=== PATIENT | female | born 1950 | race Caucasian/White ===

== ENCOUNTER 2019-02-09 09:42 | Inpatient (IN) | payer MEDICARE, BC ==
[2019-02-09] MEDS ORDERED: Morphine 4 MG/ML VIAL ONE (10:15)
[2019-02-09] MEDS ORDERED: Ondansetron PF 4 MG/2 ML Vial ONE (10:16)
--- NOTE | 2019-02-09 10:26 | RAD ---
Exam:4 views right knee HISTORY: Fall. Trauma. Pain COMPARISON: None FINDINGS: Diffuse bony mineralization. Incompletely evaluated intramedullary metallic stem from a pro sthesis. Comminuted distal femur diaphyseal fracture with probable displacement, deformity of the distal aspec t of the femur. Possible injury to the patella cannot be excluded. There is evidence of soft tissue swelling IMPRESSION: 1. Diffuse bony demineralization 2. Comminuted, displaced distal fibular fracture.
--- NOTE | 2019-02-09 10:28 | RAD ---
Exam:2 views right hip HISTORY: Fall. Pain. COMPARISON: 08/21/2015 FINDINGS: Right hip arthroplasty is noted. There is demineralization and erosion along the lesser and greater trochanter. There appears to be some fragmentation. The possibility of a fracture of the lesser and greater trochanter cannot be excluded.. IMPRESSION: 1. Redemonstration of right hip arthroplasty. 2. Interval bone demineralization lesser and greater trochanter. Possibility of trochanter fracture c annot be excluded.
[2019-02-09 10:51] LABS: #Eosinphils 0.2 thou/uL (0.0-0.7); #Lymphocytes 1.4 thou/uL (1.20-3.40); #Monocytes 0.6 thou/uL (0.11-0.59); #Neutrophils 4.6 thou/uL (1.40-6.50); %Basophils 0.1 % (0.0-1.0); %Eosinophils 2.4 % (0.0-10.0); %Lymphocytes 20.7 % (21.0-51.0); %Monocytes 8.9 % (0.0-10.0); %Neutrophils 67.9 % (42.0-75.0); Hemoglobin 10.4 g/dL (12.0-16.0); Mean Corpuscular HGB CONC 32.1 g/dL (32.0-36.0); Mean Corpuscular Hemoglobin 24.8 pg (27.0-31.0); Mean Corpuscular Volume 77.3 fL (78.0-98.0); Mean Platelet Volume 8.2 fL (7.4-10.4); Platelet Count 286 thou/uL (130-400); RBC Distribution Width 15.2 % (11.5-14.5); Red Blood Cell (RBC) Count 4.19 mill/uL (4.20-5.40); White Blood Cell (WBC) Count 6.8 thou/uL (4.8-10.8)
[2019-02-09 10:58] LABS: INR-International Normal Ratio 2.3; PTT 41.7 SEC (22.9-36.1); Prothrombin Time 25.6 SEC (12.0-14.7)
--- NOTE | 2019-02-09 10:58 | RAD ---
CHEST ONE VIEW: History: Injury following a fall at work. FINDINGS: Heart size is within normal limits. Increased linear and interstitial markings bilaterally. No conflu ent pneumonia, overt edema, or significant pleural effusion. IMPRESSION: Stable appearing chronic lung changes. No acute intrathoracic disease. POS: C
[2019-02-09 11:15] LABS: ALT (SGPT) 15 U/L (8-55); AST (SGOT) 14 U/L (5-34); Albumin 3.8 g/dL (3.4-4.8); Alkaline Phosphatase 88 U/L (40-150); Anion Gap 12 mmol/L (10-20); BUN (Urea Nitrogen) 14 mg/dL (9.8-20.1); Bilirubin, Total 0.3 mg/dL (0.2-1.2); Calc. Creatinine Clearance 0 mL/min (70-130); Calcium 9.2 mg/dL (7.8-10.44); Carbon Dioxide 25 mmol/L (23-31); Chloride 103 mmol/L (98-107); Estimated GFR-MDRD 66; Globulin 3.4 g/dL (2.4-3.5); Glucose 320 mg/dL (80-115); Potassium 4.4 mmol/L (3.5-5.1); Protein, Total 7.2 g/dL (6.0-8.3); Sodium 136 mmol/L (136-145)
[2019-02-09] MEDS ORDERED: Dextrose 5% in Water 1,000 ML IV PRN (11:29)
[2019-02-09] MEDS ORDERED: Ondansetron PF 4 MG/2 ML Vial IVP PRN (11:29)
[2019-02-09] MEDS ORDERED: Promethazine HCl 25 MG/ML VIAL IM PRN (11:29)
[2019-02-09] MEDS ORDERED: Dextrose 50% Abboject 50 ML SYRINGE SLOW IVP PRN (11:29)
[2019-02-09] MEDS ORDERED: hydrALAZINE 20 MG/ML VIAL SLOW IVP PRN (11:29)
[2019-02-09] MEDS ORDERED: Cyclobenzaprine 10 MG TAB PO PRN (11:32)
[2019-02-09] MEDS ORDERED: Acetaminophen 1,000 MG in Premix Bag 1 BAG IVPB SCH (11:45)
--- NOTE | 2019-02-09 12:27 | CT ---
CT right knee noncontrast: 02/09/2019 HISTORY: 68-year-old female with distal femoral fracture, acute FINDINGS: Acute, comminuted, moderately displaced fracture of distal femur including distal metadiaphysis, with approximately up to 30-50% bone width posterior displacement of mid and distal fragments relative to the diaphysis. Although there are fracture lucencies that extend to the lateral compartment articu lar surface, these are not displaced. There is suprapatellar joint space fluid. No dislocation. Moderate DJD of all 3 compartments. No fracture of proximal tibia or proximal fibula identified. IMPRESSION: 1. Acute, comminuted, displaced, closed, fracture of distal femoral metadiaphysis. 2. At the lateral compartment, there is intra-articular involvement without displacement. 3. Hemarthrosis.
[2019-02-09 13:02] LABS: Bilirubin Negative (Negative); Blood, Urine Negative (Negative); Clarity CLEAR (Clear); Glucose, Urine (Dipstick) 500 mg/dL (Negative); Leukocyte Negative (Negative); Nitrite Negative (Negative); Protein, Urine (Dipstick) Negative (Neg-Trace); Specific Gravity, Urine 1.016 (1.002-1.036); Urobilinogen 0.2 mg/dL (0.2-1.0)
[2019-02-09 13:44] LABS: Amphetamine Not Detected (NotDetected); Barbiturates Screen Not Detected (NotDetected); Benzodiazepine Screen Not Detected (NotDetected); Cocaine Metabolite Screen Not Detected (NotDetected); Medtox Control Line Valid? VALID (VALID); Medtox Reader # READER 4; Methadone Not Detected (NotDetected); Methamphetamine Not Detected (NotDetected); Opiate Screen Detected (NotDetected); Oxycodone Screen Not Detected (NotDetected); Phencyclidine (PCP) Not Detected (NotDetected); THC/Cannabinoid Screen Not Detected (NotDetected); Tricyclic Screen Not Detected (NotDetected)
[2019-02-09] MEDS: Ibuprofen 600 MG TAB PO SCH ×2 (14:31→21:15)
[2019-02-09] MEDS: Sodium Chloride 0.9% 1,000 ML IV SCH ×2 (14:31→20:15)
--- NOTE | 2019-02-09 14:49 | HP ---
REFERRING PHYSICIAN: Dr. Guerrero. TRAUMA SURGEON: Stanislaw Mane DO CONSULTING PHYSICIAN: Louis Mcnair MD HISTORY OF PRESENT ILLNESS: The patient is a 68-year-old female, who presented to the emergency department via EMS after a mechanical fall. The patient is on Coumadin for factor V Leiden deficiency. She reports maneuvering out of the way of somebody walking towards her. Subsequently, she got hung up in the table or cords of a printer station and she fell. She complained of right distal knee pain. On evaluation by the emergency department physician, she was found to have a right distal femur fracture. Trauma was consulted to admit the patient to the floor. Orthopedic Surgery was also consulted for operative planning. Upon my evaluation, the patient reported that she was still unclear if she wanted to go to the OR or try conservative management with hinged knee brace. The patient denied nausea, vomiting, diarrhea, or decreased sensation. She did report decreased range of motion to her right knee and reported pain was 6/10. PAST MEDICAL HISTORY: Factor V Leiden deficiency, lower extremity DVTs, TBI in [address] 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 PAST SURGICAL HISTORY: Left hip replacement, right hip replacement x8, amberly holes by Dr. Diallo in 2016 for TBI, IVC filter placement, and left toe removal. SOCIAL HISTORY: The patient lives independently and denies tobacco and drug abuse. She does report drinking alcohol about 2 times a month. MEDICATIONS: 1. Noncompliant with Humulin. 2. Coumadin 5 mg daily and 10 mg 2 times a week. 3. Keflex 500 mg daily. 4. Additional supplements. ALLERGIES: TRAMADOL. PHYSICAL EXAMINATION: VITAL SIGNS: Temperature 98.1, pulse 72, respirations 18, oxygen saturation 98% on room air, and blood pressure 151/68. PRIMARY SURVEY: Airway intact. Adequate breath sounds bilaterally. A 2+ pulses in the bilateral distals, radials, femorals, and DPs. GCS is 15. Gross motor and sensation intact. No lacerations or bruising or external bleeding noted. SECONDARY SURVEY: HEAD: Normocephalic and atraumatic. No gross palpable skull deformities or tenderness. EYES: Pupils 3 to 2, equal, round, and reactive bilaterally. ENT: No hemotympanum. No epistaxis. No septal hematoma. Midface stable to manipulation. No blood in the oropharynx. Dentition is intact. No anterior neck injury/crepitus/tenderness. C-SPINE: No step-offs or deformities or tenderness. C-collar not in place. CHEST: Nontender. No crepitus. No abrasions or ecchymosis noted. Equal chest movement. ABDOMEN: Soft, nontender, and nondistended. PELVIS: Stable to palpation. Nontender. No abrasions or ecchymosis noted. RECTAL: Deferred. GENITOURINARY: Deferred. EXTREMITIES: Rotation of the right lower extremity with swelling at the right knee as well as tenderness. No significant abrasions or ecchymosis noted. A 2+ pulses in the bilateral radials, femorals, and DPs. BACK/SPINE: No step-offs or deformities or tenderness to palpation of the thoracic or lumbar spine. No abrasions or ecchymosis noted. 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 Gross normal sensation x4 extremities. GCS is 15. LABORATORY FINDINGS: White count 6.8, hemoglobin 10.4, hematocrit 32.4, and platelets 286. Sodium 136, potassium 4.4, chloride 103, carbon dioxide 25, BUN 14, creatinine 0.86, glucose 320, total bilirubin 0.3, AST 14, and ALT 15. UA is negative. INR 2.3. DIAGNOSTIC FINDINGS: X-ray of the right hip demonstrates re-demonstration of right hip arthroplasty, interval bone demineralization of lesser and greater trochanter. Possibility of trochanter fracture cannot be excluded. Diffuse bony demineralization. Comminuted displaced fracture. Chest x-ray demonstrates stable appearance. Chronic lung changes. No acute intrathoracic disease. CT of the right lower extremity demonstrates acute comminuted displaced closed fracture of the distal femoral metadiaphysis at the lateral compartment. There is intraarticular involvement without displacement and hemarthrosis. ASSESSMENT: 1. Status post mechanical fall from standing, on Coumadin. 2. Right distal femur fracture. 3. Hyperglycemia, uncontrolled diabetes. 4. 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 PLAN: The patient will be admitted to the surgical floor. Dr. Mcnair of Orthopedic Surgery was consulted. The patient initially refused orthopedic intervention, however, did agree to have a CT scan of the right lower extremity and speak with Dr. Mcnair personally. If she is n.p.o. for now and if she does go to the OR tomorrow, she will be n.p.o. after midnight. We will repeat a INR in the morning and give the patient FFP if she does need to go to the OR. We will complete lower extremity duplex ultrasounds for DVT evaluation. We will start Pepcid for prophylaxis, but we will hold Lovenox and Coumadin at this time. PT/OT to see the patient after a plan of operative versus conservative management is made. The patient was seen and examined by Dr. Mane and myself this morning in the emergency department. Job ID: [id number]
--- NOTE | 2019-02-09 15:06 | ULT ---
BILATERAL LOWER EXTREMITY VENOUS DUPLEX ULTRASOUND INCLUDING COLOR AND SPECTRAL DOPPLER IMAGING: HISTORY: Right lower extremity trauma. History of prior DVTs. TECHNIQUE: Examination performed of the right and left lower extremities, from the groin to the ankle, including the visualized greater saphenous, common femoral, superficial femoral, profunda femoral, popliteal, trifurcation, and posterior tibial vein regions. FINDINGS: There is incompletely obstructing thrombus noted throughout both lower extremities. There is probabl y one focus of complete obstruction at the level of the proximal right superficial femoral vein. IMPRESSION: Bilateral lower extremity deep venous thrombosis with one focal area of probable complete occlusion i n the right proximal superficial femoral vein. The remaining areas appear to be partially thrombosed . The patient is on Coumadin and has an inferior vena cava filter. Findings were given to Dr. Guerrero in the emergency room at 2:03 p.m. [place]
--- NOTE | 2019-02-09 15:33 | CON ---
DATE OF CONSULTATION: 02/09/2019 This is Jd Alanis PA-C dictating a report for Louis Mcnair MD. HISTORY OF PRESENT ILLNESS: We were asked by Trauma to see patient. The patient was at a public computer place, where she got up to check a printer or something along those lines, and she states there was a large person coming back toward her. She tried to avoid them and got tangled up with the printer, fell twisting, instantaneous right knee pain. She had an extensive surgical history on that right lower extremity. She did not hit her head. She has no numbness or tingling in her feet when she fell, but has a little bit of tingling sensation since she has been in the emergency room. Her symptoms are eased with ice and the pain medications. Otherwise, any kind of movement of that lower extremity causes significant pain. We have ordered a CT. After CT is done, we will get her into a knee immobilizer, which will give her some more comfort, relief. PAST MEDICAL HISTORY: Positive for factor V Leiden mutation, subdural hematoma, type 2 diabetes, obesity, hyperlipidemia, GERD, chronic pain syndrome, and on Coumadin. PAST SURGICAL HISTORY: IVC filter placement, amberly hole drainage of subdural, toe reconstruction, multiple hip surgeries on the right. ALLERGIES: ULTRAM. CURRENT MEDICATIONS: 1. Keflex. 2. Humulin. 3. Coumadin. 4. Hydrocodone. SOCIAL HISTORY: Lives in [facility]. No alcohol or nicotine products. No illicit drug use. FAMILY HISTORY: For this visit is noncontributory. REVIEW OF SYSTEMS: The main complaint currently is right knee pain. Denies any shortness of breath, chest pain, or bowel or bladder problems. Rest of review of systems discussed and are negative. PHYSICAL EXAMINATION: GENERAL: Well-nourished, well-developed, mildly overweight female, resting on the gurney in room 3, in no acute distress. Speech clear. Affect pleasant. Answers questions appropriately. She is alert and oriented x3. HEENT: Normal exam. Face symmetric. Tongue midline. EXTREMITIES: Upper extremities, equal size, shape, symmetry, normal bulk and tone. Lower extremities, right lower extremity is a little bit shortened and outward rotated. It is obvious that she has had some hip surgeries by looking at the scarring on her right lower extremity and her right foot toe surgery. Her right knee distal femur is quite swollen. No bruising or ecchymosis seen at the time of evaluation. DP and PT pulses are intact and equal. She is moving bilateral lower feet fairly well. She does have some discoloration from the midcalf down. NECK: Supple. Trachea midline. RESPIRATORY: No distress, breathing at 16 breaths per minute. ASSESSMENT: 1. Multiple health issues. 2. Right distal femur fracture. PLAN: The patient's INR needs to be quite a bit lower, today it was 2.3, we would like it to be 1.9 or less. We discussed surgery. She is not overtly keen on having any more surgeries, but as I discussed the details of her fracture, I think she understands that she needs to have some stability placed in that area of fracture. We will get a CT scan. We will discuss surgical options after completed and once trauma has cleared them medically for any type of repair. The patient is happy with this plan. Trauma will admit and get her pain controlled. Once CT is completed , we will view it and discuss options with the patient probably Friday. Again, INR needs to be lower before we undertake surgery. Dr. Louis Mcnair will undertake surgery. Job ID: [id number] [facility]
[2019-02-09] MEDS: Insulin Regular 300 UNITS/3 ML VIAL SC PRN ×3 (15:57→23:48)
[2019-02-09 18:09] VITALS: BMI 37.5
[2019-02-09] MEDS: Acetaminophen 650 MG in Premix Bag 1 BAG IVPB SCH ×2 (18:46→23:44)
[2019-02-09] MEDS: Senokot S 8.6-50 MG TAB PO SCH (20:16)
[2019-02-09] MEDS: Cephalexin 250 MG CAP PO SCH (20:16)
[2019-02-09] MEDS: Famotidine/PF 20 mg/2ml Vial SLOW IVP SCH (20:16)
[2019-02-09] MEDS ORDERED: Prevnar 13-Val Conj/PF 0.5 ML SYRINGE IM ONE (21:00)
[2019-02-10] MEDS: Acetaminophen 650 MG in Premix Bag 1 BAG IVPB SCH ×2 (05:37→11:45)
[2019-02-10] MEDS: Ibuprofen 600 MG TAB PO SCH ×3 (05:37→21:18)
[2019-02-10] MEDS: Insulin Regular 300 UNITS/3 ML VIAL SC PRN ×2 (05:42→21:31)
[2019-02-10] MEDS: Morphine 2 MG/ML SYRINGE SLOW IVP PRN ×3 (05:50→20:19)
[2019-02-10] MEDS: Sodium Chloride 0.9% 1,000 ML IV SCH ×2 (06:38→18:30)
[2019-02-10 06:52] LABS: #Basophils 0.1 thou/uL (0.0-0.2); #Eosinphils 0.2 thou/uL (0.0-0.7); #Lymphocytes 1.4 thou/uL (1.20-3.40); #Monocytes 0.7 thou/uL (0.11-0.59); #Neutrophils 4.5 thou/uL (1.40-6.50); %Basophils 0.8 % (0.0-1.0); %Eosinophils 2.5 % (0.0-10.0); %Monocytes 9.9 % (0.0-10.0); %Neutrophils 65.9 % (42.0-75.0); Hemoglobin 8.8 g/dL (12.0-16.0); Mean Corpuscular Hemoglobin 24.7 pg (27.0-31.0); Mean Corpuscular Volume 77.2 fL (78.0-98.0); Mean Platelet Volume 7.8 fL (7.4-10.4); Platelet Count 263 thou/uL (130-400); Red Blood Cell (RBC) Count 3.57 mill/uL (4.20-5.40); White Blood Cell (WBC) Count 6.9 thou/uL (4.8-10.8)
[2019-02-10 06:55] LABS: INR-International Normal Ratio 1.9; Prothrombin Time 21.5 SEC (12.0-14.7)
[2019-02-10 07:12] LABS: Anion Gap 10 mmol/L (10-20); BUN (Urea Nitrogen) 15 mg/dL (9.8-20.1); Calc. Creatinine Clearance 119 mL/min (70-130); Calcium 8.6 mg/dL (7.8-10.44); Carbon Dioxide 24 mmol/L (23-31); Chloride 107 mmol/L (98-107); Estimated GFR-MDRD 72; Glucose 228 mg/dL (80-115); Magnesium 1.7 mg/dL (1.6-2.6); Phosphorus 4.1 mg/dL (2.3-4.7); Potassium 4.3 mmol/L (3.5-5.1); Sodium 137 mmol/L (136-145)
[2019-02-10] MEDS ORDERED: Insulin Regular 300 UNITS/3 ML VIAL SC PRN (07:24)
[2019-02-10] MEDS ORDERED: Magnesium 2 GM/50 ML 2 GM in Premix Bag 1 BAG IVPB SCH (07:30)
[2019-02-10] MEDS ORDERED: CEFAZOLIN 2 GM in Premix Bag 1 BAG IVPB SCH (07:30)
[2019-02-10] MEDS: Polyethylene Glycol 3350 17 GM Packet PO SCH (07:48)
[2019-02-10] MEDS: Senokot S 8.6-50 MG TAB PO SCH ×2 (07:49→20:20)
[2019-02-10] MEDS: Cephalexin 250 MG CAP PO SCH ×2 (07:50→20:20)
[2019-02-10] MEDS: Famotidine/PF 20 mg/2ml Vial SLOW IVP SCH ×2 (08:52→20:21)
--- NOTE | 2019-02-10 13:25 | PRG ---
DATE OF SERVICE: 02/10/2019 This is Mary Doran PA-C dictating a report for Stanislaw Mane DO. SUBJECTIVE: The patient was seen this morning lying in bed with no acute events overnight. Reported pain is well controlled. She is n.p.o. for the OR today, but had previously been tolerating her diabetic diet. She did receive 2 mg of vitamin K IV yesterday as she is on Coumadin for factor V Leiden deficiency as well as bilateral lower extremity DVTs. INR this morning is 1.9, and the patient is ready to go to the OR with Dr. Mcnair of Orthopedic Surgery. She denies nausea, vomiting, or diarrhea at this time. OBJECTIVE: VITAL SIGNS: Temperature 97.9, pulse 73, respirations 18, oxygen saturation 96% on room air, blood pressure 160/78. GENERAL: Well-appearing elderly female, lying in bed, with no signs of acute distress. PULMONARY: Equal chest rise and fall. Clear breath sounds bilaterally. No signs of acute respiratory distress. CARDIAC: Regular rate and rhythm. No murmurs, gallops, or rubs. GI: Abdomen is soft, nontender, and nondistended. EXTREMITIES: 2+ pulses in all extremities. No significant swelling noted. Right lower extremity propped up with blankets and pillows. No significant swelling noted. NEUROLOGIC: GCS is 15. Pupils equal, round, and reactive to light bilaterally. LABORATORY FINDINGS: White count 6.9, hemoglobin 8.8, hematocrit 27.5, and platelets 263. INR 1.9. Sodium 137, potassium 4.3, chloride 107, carbon dioxide 24, BUN 15, creatinine 0.80, and glucose 228. Phosphorus 4.1. Magnesium 1.7. DIAGNOSTIC FINDINGS: Ultrasound of the bilateral lower extremities demonstrated bilateral lower extremity deep venous thrombosis with one focal area of probable complete occlusion in the right proximal superficial femoral vein. The remaining areas appear to be partially thrombosed. The patient is on Coumadin and has an IVC filter. ASSESSMENT: 1. Status post mechanical fall from standing. 2. Right distal femur fracture. 3. Hyperglycemia, uncontrolled diabetes. 4. History of factor V Leiden deficiency, diabetes, bilateral lower extremity deep vein thromboses, palpitations, and inferior vena cava filter placement. 5. Hypomagnesemia. PLAN: The patient is to go to the OR with Dr. Mcnair today for fixation of her right distal femur fracture. INR today is 1.9 after 2 mg of IV Coumadin. We will continue to hold Coumadin today as she is going to the OR. Magnesium was replaced. Her insulin sliding scale was increased to an aggressive scale. She is n.p.o. now with a diabetic diet postoperatively. The patient is to work with Physical and Occupational Therapy postoperatively. She will likely need placement at an acute rehab facility. The patient was seen and examined by Dr. Mane and myself this morning during rounds. Job ID: [id number]
[2019-02-10] MEDS ORDERED: diphenhydrAMINE 50 MG/ML VIAL ONE (13:43)
[2019-02-10] MEDS ORDERED: Ondansetron PF 4 MG/2 ML Vial ONE (13:43)
[2019-02-10] MEDS ORDERED: Glycopyrrolate 0.2 MG/ML 5 ML SYRINGE ONE (13:43)
[2019-02-10] MEDS ORDERED: Lidocaine 1% PF 5 ML VIAL ONE (13:43)
[2019-02-10] MEDS ORDERED: PROPOFOL 200 MG/20 ML VIAL ONE (13:43)
[2019-02-10] MEDS ORDERED: Ketorolac Tromethamine 30 MG/ML VIAL ONE (13:43)
[2019-02-10] MEDS ORDERED: Metoclopramide HCl 10 MG/2 ML VIAL ONE (13:43)
[2019-02-10] MEDS ORDERED: Dexamethasone 20 MG/5 ML VIAL ONE (13:43)
[2019-02-10] MEDS ORDERED: Rocuronium Bromide 10 MG/ML (10ML VIAL) ONE (13:43)
[2019-02-10] MEDS ORDERED: PHENYLEPHRINE-NS 100 MCG/ML 10 ML SYRINGE ONE (13:43)
[2019-02-10] MEDS ORDERED: Fentanyl 100 MCG/2 ML VIAL ONE ×3 (14:35→17:17)
[2019-02-10] MEDS ORDERED: HYDROmorphone 2 MG/ML VIAL ONE (15:59)
--- NOTE | 2019-02-10 15:59 | RAD ---
Exam: 2 views of the right femur Findings/impression: Multiple limited intraoperative fluoroscopic views of the right femur were submi tted for interpretation. An intramedullary arlen is seen in the proximal aspect of the femur. A plate and screws is seen in the distal aspect of the femur spanning a fracture of the distal diametaphysis. No perihardware lucency is seen. Mild degenerative changes are seen in the knee.
[2019-02-10] MEDS: Warfarin Sodium 5 MG TAB PO SCH (19:01)
[2019-02-10] MEDS: HYDROcodone/Acetaminophen 5/325 mg Tablet PO PRN (19:43)
[2019-02-10] MEDS: Acetaminophen 325 MG TAB PO SCH (21:17)
[2019-02-10] MEDS: CEFAZOLIN 2 GM in Premix Bag 1 BAG IVPB SCH (21:18)
--- NOTE | 2019-02-10 22:43 | OP ---
DATE OF PROCEDURE: 02/10/2019 PROCEDURE PERFORMED: Open reduction and internal fixation of right distal femur fracture. POSTOPERATIVE DIAGNOSIS: Open reduction and internal fixation of right distal femur fracture. COMPLICATIONS: None. ESTIMATED BLOOD LOSS: 400 mL. ANESTHESIA: General. IMPLANT: Synthes 10 hole distal femoral plate with multiple locking and nonlocking screws as well as 2 Synthes cables were utilized. INDICATIONS: Ms. Burgess is a 68-year-old female, who fell and fractured her distal femur. She was indicated for open reduction and internal fixation of the femur to restore anatomic alignment, promote healing and allow early mobilization. Risks have been reviewed in detail. Risks to include infection, pain, scarring, nerve or vascular injury, nonunion, DVT, PE, and others. DESCRIPTION OF PROCEDURE: Ms. Burgess is a 68-year-old female who was identified in the preoperative holding area. Her correct extremity was marked. She was carried to the operating room. She was positioned supine. General anesthesia was induced. A multidisciplinary time-out was performed. The right lower extremity was prepped and draped in sterile fashion. We began the procedure with a lateral approach to the distal femur. We dissected down through the subcutaneous tissues to the fascia, which was incised. We then elevated the vastus lateralis, exposing the distal femur. We were able to visualize the fracture itself. We were able to reduce the fracture with traction and rotation. We held this with a K-wire. We then applied a 10-hole Synthes plate along the lateral cortex. We then placed a nonlocking screw proximally followed by multiple distal locking screws. We placed the locking screws in the shaft. We then placed 2 cables proximally over the femoral stem. We took x-ray images throughout this procedure confirming hardware placement. There were no complications. At this point, we thoroughly irrigated with copious lavage. We then proceeded to close the fascia with #1 Vicryl suture, 2-0 Vicryl suture, and alfonso for the skin were used. A sterile dressing was applied. The patient was taken to the recovery room in good condition. Job ID: [id number]
[2019-02-11] MEDS: Insulin Regular 300 UNITS/3 ML VIAL SC PRN ×5 (02:17→21:48)
[2019-02-11] MEDS: Acetaminophen 325 MG TAB PO SCH ×4 (04:40→21:47)
[2019-02-11 05:49] LABS: INR-International Normal Ratio 1.6; Prothrombin Time 18.8 SEC (12.0-14.7)
[2019-02-11 05:50] LABS: #Lymphocytes 0.6 thou/uL (1.20-3.40); #Monocytes 0.4 thou/uL (0.11-0.59); #Neutrophils 9.7 thou/uL (1.40-6.50); %Basophils 0.3 % (0.0-1.0); %Eosinophils 0.2 % (0.0-10.0); %Lymphocytes 5.9 % (21.0-51.0); %Monocytes 3.4 % (0.0-10.0); %Neutrophils 90.2 % (42.0-75.0); Hemoglobin 8.5 g/dL (12.0-16.0); Mean Corpuscular HGB CONC 31.5 g/dL (32.0-36.0); Mean Corpuscular Hemoglobin 24.5 pg (27.0-31.0); Mean Corpuscular Volume 77.8 fL (78.0-98.0); Mean Platelet Volume 8.2 fL (7.4-10.4); Platelet Count 268 thou/uL (130-400); RBC Distribution Width 15.1 % (11.5-14.5); Red Blood Cell (RBC) Count 3.46 mill/uL (4.20-5.40); White Blood Cell (WBC) Count 10.8 thou/uL (4.8-10.8)
[2019-02-11 05:51] LABS: Anion Gap 13 mmol/L (10-20); BUN (Urea Nitrogen) 14 mg/dL (9.8-20.1); Calc. Creatinine Clearance 122 mL/min (70-130); Calcium 8.7 mg/dL (7.8-10.44); Carbon Dioxide 23 mmol/L (23-31); Chloride 106 mmol/L (98-107); Estimated GFR-MDRD 74; Glucose 338 mg/dL (80-115); Magnesium 1.8 mg/dL (1.6-2.6); Phosphorus 3.8 mg/dL (2.3-4.7); Potassium 4.7 mmol/L (3.5-5.1); Sodium 137 mmol/L (136-145)
[2019-02-11] MEDS: CEFAZOLIN 2 GM in Premix Bag 1 BAG IVPB SCH (06:37)
[2019-02-11] MEDS: Ibuprofen 600 MG TAB PO SCH ×3 (06:37→21:47)
[2019-02-11] MEDS ORDERED: Magnesium 2 GM/50 ML 2 GM in Premix Bag 1 BAG IVPB SCH (07:30)
[2019-02-11] MEDS: Polyethylene Glycol 3350 17 GM Packet PO SCH (08:25)
[2019-02-11] MEDS: Enoxaparin Sodium 40 MG/0.4 ML SYRINGE SC SCH (08:29)
[2019-02-11] MEDS: Cephalexin 250 MG CAP PO SCH ×2 (08:30→21:46)
[2019-02-11] MEDS: Famotidine 20 MG TAB PO SCH ×2 (08:30→21:46)
[2019-02-11] MEDS: Senokot S 8.6-50 MG TAB PO SCH ×3 (08:31→21:47)
[2019-02-11] MEDS: HYDROcodone/Acetaminophen 5/325 mg Tablet PO PRN (09:05)
[2019-02-11] MEDS: Warfarin Sodium 5 MG TAB PO SCH (16:25)
--- NOTE | 2019-02-11 19:59 | PRG ---
DATE OF SERVICE: 02/11/2019 SUBJECTIVE: The patient is postoperative day #1 after fixation of her right distal femur fracture. She reports pain is well controlled on current pain regimen and she is tolerating a regular diet. She is requesting to keep her Fish. She has not yet worked with Physical Therapy, but agreed to have it discontinued tomorrow. Coumadin 5 was restarted yesterday evening. She did receive 2 mg of vitamin K the day before in preparation for the OR. This morning, she has no other complaints. Denies nausea, vomiting, or diarrhea. OBJECTIVE: VITAL SIGNS: Temperature 97.5, pulse 76, respirations 16, oxygen saturation 96% on room air, and blood pressure 157/72. GENERAL: Well-appearing elderly female, lying in bed with no signs of acute distress. PULMONARY: Equal chest rise and fall. Clear breath sounds bilaterally. No signs of acute respiratory distress. CARDIAC: Regular rate and rhythm. No murmurs, gallops, or rubs. GI: Abdomen is soft, nontender, nondistended. EXTREMITIES: 2+ pulses in all extremities. No significant swelling noted. Right lower extremity propped up with blankets and pillows. No signs of significant swelling. NEUROLOGIC: GCS is 15. Pupils equal, round, and reactive to light. LABORATORY FINDINGS: White count 10.8, hemoglobin 8.5, hematocrit 27.0, and platelets 268. Sodium 136, potassium 4.7, chloride 106, carbon dioxide 23, BUN 14, creatinine 0.78, glucose 338, phosphorus 3.8, and magnesium 1.8. DIAGNOSTIC FINDINGS: There are no new diagnostic findings to report. ASSESSMENT: 1. Status post mechanical fall from standing. 2. Right distal femur fracture, status post repair. 3. Hyperglycemia, uncontrolled diabetes. 4. History of factor V Leiden deficiency, diabetes, bilateral lower extremity deep venous thromboses, palpitations, IVC filter placement. 5. Hypomagnesemia. PLAN: The patient is postoperative day #1. She will work with Physical and Occupational Therapy today. Continue Coumadin 5 mg tonight. Continue aggressive insulin sliding scale. We will consider adding on longer-acting insulin for basal dose tomorrow. Continue current pain and diet regimen. The patient was seen and examined by Dr. Mane and myself this morning during rounds. Job ID: [id number]
[2019-02-12] MEDS: Insulin Regular 300 UNITS/3 ML VIAL SC PRN ×5 (00:27→15:03)
[2019-02-12] MEDS: Acetaminophen 325 MG TAB PO SCH ×4 (03:55→20:40)
[2019-02-12 05:31] LABS: INR-International Normal Ratio 1.8; Prothrombin Time 20.8 SEC (12.0-14.7)
[2019-02-12] MEDS: HYDROcodone/Acetaminophen 5/325 mg Tablet PO PRN ×2 (05:36→16:41)
[2019-02-12] MEDS: Ibuprofen 600 MG TAB PO SCH ×3 (05:36→20:40)
[2019-02-12 05:48] LABS: Anion Gap 11 mmol/L (10-20); BUN (Urea Nitrogen) 18 mg/dL (9.8-20.1); Calc. Creatinine Clearance 132 mL/min (70-130); Carbon Dioxide 26 mmol/L (23-31); Chloride 107 mmol/L (98-107); Estimated GFR-MDRD 81; Glucose 211 mg/dL (80-115); Magnesium 1.8 mg/dL (1.6-2.6); Phosphorus 3.6 mg/dL (2.3-4.7); Sodium 140 mmol/L (136-145)
[2019-02-12] MEDS: Cephalexin 250 MG CAP PO SCH ×2 (08:54→20:41)
[2019-02-12] MEDS: Polyethylene Glycol 3350 17 GM Packet PO SCH (08:54)
[2019-02-12] MEDS: Senokot S 8.6-50 MG TAB PO SCH ×2 (08:54→20:42)
[2019-02-12] MEDS: Famotidine 20 MG TAB PO SCH ×2 (08:54→20:41)
[2019-02-12] MEDS: Enoxaparin Sodium 40 MG/0.4 ML SYRINGE SC SCH (08:54)
[2019-02-12] MEDS: Warfarin Sodium 5 MG TAB PO SCH (16:37)
[2019-02-12 20:43] VITALS: BP 154/72; TEMP 98.3
--- NOTE | 2019-02-14 02:37 | DIS ---
DATE OF ADMISSION: 02/09/2019 DATE OF DISCHARGE: 02/12/2019 TRAUMA SURGEON: Stanislaw Mane DO CONSULTING PHYSICIAN: Louis Mcnair MD PROCEDURES: 1. X-ray of the right hip demonstrates right hip arthroplasty, interval bone demineralization of lesser and greater trochanter, diffuse bony demineralization , and comminuted displaced fracture. 2. Chest x-ray demonstrates stable appearance. Chronic lung changes. No acute intrathoracic disease. 3. CT of the right lower extremity demonstrates acute comminuted displaced closed fracture of the distal femur metaphysis of the lateral compartment. 4. On 02/10/2019, open reduction and internal fixation of the right distal femur fracture by Dr. Atkinson. PRIMARY DIAGNOSIS: Status post mechanical fall from standing, right distal femur fracture. 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 DISCHARGE MEDICATIONS: 1. Acetaminophen 650 mg orally 4 times a day. 2. Flexeril 5 mg three times a day as needed. 3. Hydrocodone. 4. Motrin 600 mg every 8 hours. 5. MiraLAX as needed. 6. DuoNeb treatment q.4 hours as needed. 7. Senokot S as needed. 8. Coumadin 5 mg 5 nights a week when not taking 10 mg. 9. Coumadin 10 mg two nights a week. 10. No discontinued medications. HISTORY OF PRESENT ILLNESS AND HOSPITAL COURSE: This is a 68-year-old female, who presented to the emergency room via EMS after a mechanical fall. On the day of discharge, the patient's vital signs were stable. The patient's exam was unremarkable including cardiopulmonary and GI exam. The patient was deemed stable for discharge to inpatient rehab. The plan was discussed with Dr. Mane, who agreed. Continue physical and occupational therapy as needed. DISPOSITION: Stable. DISCHARGE INSTRUCTIONS: 1. Location: Inpatient rehab. 2. Diet: Regular diet. 3. Activity: Orthopedic limitations, nonweightbearing right lower extremity, the patient to use a walker. 4. Followup: Follow up with Dr. Atkinson as directed. This is just a summary of the hospital course. Job ID: [id number] [facility]
== END 2019-02-12 21:30 | DRG 481 ==
LOC: EEVIPCON 09:42 → ERS 09:42 → SURG A 11:01
PROVIDERS: ADMIT Surgery; ATTEND Surgery
PROC: 0QSB04Z Reposition Right Lower Femur with Internal Fixation Device, Open Approach (ICD-10-PCS; principal; 2019-02-10)
DX: S72.401A Unspecified fracture of lower end of right femur, initial encounter for closed fracture (principal); D68.51 Activated protein C resistance; W18.30XA Fall on same level, unspecified, initial encounter; Y92.9 Unspecified place or not applicable; E11.65 Type 2 diabetes mellitus with hyperglycemia; E83.42 Hypomagnesemia; Z86.718 Personal history of other venous thrombosis and embolism; Z79.4 Long term (current) use of insulin; Z79.899 Other long term (current) drug therapy; Z91.14 Patient's other noncompliance with medication regimen; Z79.01 Long term (current) use of anticoagulants
CPT/HCPCS: 36415; 36416; 51702; 71045; 76000; 80048; 80053; 80306; 80307; 81003; 83735; 84100; 85025; 85610; 85730; 86850; 86900; 86901; 93005; 93970; 96365; 96375; C1713; C1769; G0390; J0131; J0690; J1100; J1170; J1200; J1650; J1815; J1885; J2001; J2270; J2405; J2704; J2765; J3010; J3430; J3475; J7050; S0028

== ENCOUNTER 2019-05-20 15:02 | Outpatient (CLI) | payer MEDICARE, BC ==
--- NOTE | 2019-05-20 15:52 | MMO ---
Bilateral MAMMO Bilat Screen DDI+DAMARI. CLINICAL HISTORY: Patient is 68 years old and is seen for screening. The patient has the following family history of breast cancer: maternal aunt. The patient has no personal history of cancer. VIEWS: The views performed were: bilateral craniocaudal with tomosynthesis and bilateral mediolateral oblique with tomosynthesis. FILMS COMPARED: The present examination has been compared to prior imaging studies performed at [facility] on 08/30/2016, and at [facility] on 03/30/2014. MAMMOGRAM FINDINGS: There are scattered fibroglandular densities. There are no suspicious masses, suspicious calcifications, or new areas of architectural distortion. IMPRESSION: THERE IS NO MAMMOGRAPHIC EVIDENCE OF MALIGNANCY. A ROUTINE FOLLOW-UP MAMMOGRAM IN 1 YEAR IS RECOMMENDED. THE RESULTS OF THIS EXAM WERE SENT TO THE PATIENT. ACR BI-RADS Category 1 - Negative MAMMOGRAPHY NOTE: 1. A negative mammogram report should not delay a biopsy if a dominant of clinically suspicious mass is present. 2. Approximately 10% to 15% of breast cancers are not detected by mammography. 3. Adenosis and dense breasts may obscure an underlying neoplasm. Reported by: PILLO STONE MD Electonically Signed: [id number]
== END 2019-05-20 15:03 | disposition home or self-care (01) ==
LOC: BICMAMMO 15:02
PROVIDERS: ATTEND Family Medicine
DX: Z12.31 Encounter for screening mammogram for malignant neoplasm of breast (principal); Z80.3 Family history of malignant neoplasm of breast
CPT/HCPCS: 77063; 77067

== ENCOUNTER 2020-04-17 01:20 | Inpatient (IN) | payer MEDICARE, BC, OTHER ==
[2020-04-17 01:58] LABS: Lactic Acid 2.5 mmol/L (0.5-2.2)
[2020-04-17 01:59] LABS: INR-International Normal Ratio 2.1; Prothrombin Time 23.2 sec (12.0-14.7)
[2020-04-17 02:00] LABS: PTT 36.3 sec (22.9-36.1)
[2020-04-17 02:03] LABS: #Basophils 0.1 thou/uL (0.0-0.2); #Eosinphils 0.2 thou/uL (0.0-0.7); #Lymphocytes 2.8 thou/uL (1.20-3.40); #Monocytes 0.6 thou/uL (0.11-0.59); #Neutrophils 5.2 thou/uL (1.40-6.50); %Basophils 0.7 % (0.0-1.0); %Eosinophils 2.1 % (0.0-10.0); %Lymphocytes 31.6 % (21.0-51.0); %Monocytes 6.8 % (0.0-10.0); %Neutrophils 58.9 % (42.0-75.0); Hemoglobin 9.9 g/dL (12.0-16.0); Mean Corpuscular HGB CONC 32.2 g/dL (32.0-36.0); Mean Corpuscular Hemoglobin 25.2 pg (27.0-31.0); Mean Corpuscular Volume 78.3 fL (78.0-98.0); Mean Platelet Volume 8.4 fL (7.4-10.4); Platelet Count 295 thou/uL (130-400); RBC Distribution Width 15.5 % (11.5-14.5); Red Blood Cell (RBC) Count 3.94 mill/uL (4.20-5.40); White Blood Cell (WBC) Count 8.8 thou/uL (4.8-10.8)
[2020-04-17 02:07] LABS: ALT (SGPT) 13 U/L (8-55); AST (SGOT) 20 U/L (5-34); Albumin 3.6 g/dL (3.4-4.8); Alkaline Phosphatase 77 U/L (40-110); Anion Gap 14 mmol/L (10-20); BUN (Urea Nitrogen) 18 mg/dL (9.8-20.1); Bilirubin, Total 0.3 mg/dL (0.2-1.2); Calc. Creatinine Clearance 0 mL/min (70-130); Calcium 8.8 mg/dL (7.8-10.44); Carbon Dioxide 20 mmol/L (23-31); Chloride 108 mmol/L (98-107); Estimated GFR-MDRD 66; Globulin 3.4 g/dL (2.4-3.5); Glucose 257 mg/dL (80-115); Sodium 138 mmol/L (136-145)
[2020-04-17] MEDS ORDERED: Ketorolac Tromethamine 30 MG/ML VIAL ONE (02:28)
[2020-04-17] MEDS ORDERED: Morphine 4 MG/ML VIAL ONE (02:28)
[2020-04-17] MEDS ORDERED: Dextrose 50% Abboject 50 ML SYRINGE SLOW IVP PRN (03:33)
[2020-04-17] MEDS ORDERED: Ondansetron PF 4 MG/2 ML Vial IVP PRN (03:33)
[2020-04-17] MEDS ORDERED: hydrALAZINE 20 MG/ML VIAL SLOW IVP PRN (03:33)
[2020-04-17] MEDS ORDERED: Morphine 2 MG/ML VIAL SLOW IVP PRN (03:33)
[2020-04-17] MEDS ORDERED: Dextrose 5% in Water 1,000 ML IV PRN (03:33)
[2020-04-17] MEDS ORDERED: HYDROcodone/Acetaminophen 5/325 mg Tablet PO PRN (03:38)
[2020-04-17] MEDS ORDERED: Acetaminophen 500 MG TAB PO SCH ×2 (04:00→07:05)
[2020-04-17] MEDS: Sodium Chloride 0.9% 1,000 ML IV SCH ×3 (05:46→16:36)
[2020-04-17] MEDS: Ibuprofen 600 MG TAB PO SCH ×3 (05:47→23:25)
[2020-04-17 06:02] VITALS: BMI 36.2
[2020-04-17] MEDS: Insulin Regular 300 UNITS/3 ML VIAL SC PRN ×2 (06:34→11:00)
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
--- NOTE | 2020-04-17 07:49 | RAD ---
XR Shoulder Rt 3 View STANDARD HISTORY: Right shoulder pain FINDINGS: No fracture or dislocation is identified. There are degenerative changes in the acromioclavicular mindy nt.
[2020-04-17] MEDS ORDERED: CEFAZOLIN 2 GM in Premix Bag 1 BAG IVPB SCH (08:00)
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
--- NOTE | 2020-04-17 08:27 | RAD ---
LEFT WRIST 3 VIEWS: HISTORY: Wrist injury. FINDINGS: Bones are demineralized. There are arthritic changes of the wrist. There is a transversely oriented distal radial fracture severely dorsally angulated and also a mainly transversely oriented fracture through the ulnar neck. The distal end of the ulnar neck. The distal end of the ulna is displaced d orsally and proximally. IMPRESSION: Distal radial and ulnar fractures. POS: GALLO
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
[2020-04-17] MEDS: Famotidine/PF 20 mg/2ml Vial SLOW IVP SCH ×2 (08:53→20:23)
[2020-04-17] MEDS: Gabapentin 100 MG CAP PO SCH ×3 (08:54→20:23)
[2020-04-17] MEDS: Acetaminophen 325 MG TAB PO SCH ×3 (09:05→23:25)
[2020-04-17] MEDS: Polyethylene Glycol 3350 17 GM Packet PO SCH (09:16)
[2020-04-17] MEDS: Senokot S 8.6-50 MG TAB PO SCH ×2 (09:17→20:23)
[2020-04-17] MEDS ORDERED: Bupivacaine HCl 0.5%/Epinephrine 1:200,000/PF 30 ml Vial IJ SCH (11:30)
[2020-04-17] MEDS ORDERED: Lidocaine 1% (PF) 30 ML VIAL SC SCH (11:30)
--- NOTE | 2020-04-17 11:45 | RAD ---
PORTABLE CHEST 1 VIEW: Date: 04/17/2020 Time: 0945 hours HISTORY: Pneumothorax. FINDINGS/IMPRESSION: There is a small-moderate size right pneumothorax, which was also seen on the previous day's CT scan. This was not seen on the plain radiograph from the previous day. The possibility of slight interval increase in size cannot be excluded. Continued follow-up is recommended. POS: [facility] ANN
[2020-04-17 12:28] LABS: PTT 44.8 sec (22.9-36.1); Prothrombin Time 22.2 sec (12.0-14.7)
--- NOTE | 2020-04-17 13:08 | RAD ---
EXAM: Chest one view: HISTORY: Chest tube positioning, follow-up pneumothorax COMPARISON: 04/17/2020 FINDINGS: The right-sided pneumothorax is minimally smaller and improved from prior exam. Chest tube is noted o verlying the lower right costophrenic angle region and is moderately obscured because of body habitus I cannot see with certainty the sidehole position. The tube is somewhat angulated distally. Heart size: Within normal limits. Right hemidiaphragm elevation. Lungs: Stable increased markings bilaterally. No evidence for confluent pneumonia, pleural effusion, acute edema, or pneumothorax, or other signifi cant acute process. IMPRESSION: Minimally smaller right-sided pneumothorax. Inferior right chest tube is moderately obscured.
[2020-04-17] MEDS ORDERED: Iopamidol-370 76% 500 ML 1 ML ONE (13:25)
--- NOTE | 2020-04-17 14:18 | RAD ---
RADIOGRAPH CHEST 1 VIEW: DATE: 04/17/2020 TIME: 2 9:00 PM HISTORY: 69-year-old female with right pneumothorax. Reevaluation of chest tube COMPARISON: 04/17/2020 12:47 PM FINDINGS: Again noted is the chest tube at the right base. The sidehole is at the point of angulation of the ch est tube, slightly medial to the right lateral costophrenic angle. The rest of the distal portion of the right chest tube is angulated medially, entirely projecting inferior to the right hemidiaphrag m by many centimeters. Moderate size right apical pneumothorax, approximately 20-35% volume of right hemithoracic cavity, is unchanged. No consolidation or pulmonary edema. No interval roving changer all. IMPRESSION: No significant interval change in the volume of the moderate size right pneumothorax, suggesting that the right basilar chest tube may be malpositioned.
[2020-04-17 14:45] LABS: #Lymphocytes 0.9 thou/uL (1.20-3.40); #Monocytes 0.8 thou/uL (0.11-0.59); %Basophils 0.3 % (0.0-1.0); %Eosinophils 0.6 % (0.0-10.0); %Monocytes 9.6 % (0.0-10.0); %Neutrophils 77.5 % (42.0-75.0); Hemoglobin 8.7 g/dL (12.0-16.0); Mean Corpuscular HGB CONC 30.8 g/dL (32.0-36.0); Mean Corpuscular Hemoglobin 23.8 pg (27.0-31.0); Mean Corpuscular Volume 77.4 fL (78.0-98.0); Mean Platelet Volume 8.7 fL (7.4-10.4); Platelet Count 263 thou/uL (130-400); RBC Distribution Width 15.7 % (11.5-14.5); Red Blood Cell (RBC) Count 3.66 mill/uL (4.20-5.40); White Blood Cell (WBC) Count 7.8 thou/uL (4.8-10.8)
[2020-04-17 14:54] LABS: INR-International Normal Ratio 1.7; PTT 39.9 sec (22.9-36.1); Prothrombin Time 19.8 sec (12.0-14.7)
[2020-04-17 15:01] LABS: Lactic Acid 2.3 mmol/L (0.5-2.2)
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
--- NOTE | 2020-04-17 15:37 | CT ---
EXAM: CT of the chest without contrast HISTORY: Chest tube position COMPARISON: Chest x-ray 04/17/2020 TECHNIQUE: Multiple contiguous axial images were obtained in a CT the chest without contrast. Coronal and sagittal reformats were performed. FINDINGS: HEART: Normal in size without focal cardiac abnormality MEDIASTINUM: No hilar or mediastinal lymphadenopathy. Atherosclerotic calcifications in the aorta and coronary arteries. Evaluation of the mediastinum is limited without IV contrast. LUNGS: No focal infiltrates, nodules, or masses. Atelectasis is seen in the right lung base. PLEURAL SPACE: The right chest tube is above the diaphragm in the inferior aspect of the right thorax . There is a persistent small right pneumothorax. No pleural effusion. CHEST WALL SOFT TISSUES: Unremarkable OSSEOUS STRUCTURES: Degenerative changes in the spine. Multiple right rib fractures are seen. VISUALIZED SUBDIAPHRAGMATIC STRUCTURES: An inferior vena cava filter is partially visualized. IMPRESSION: The right chest tube is in the right thorax with persistent right-sided pneumothorax
[2020-04-17 17:36] LABS: Bilirubin Negative (Negative); Blood, Urine 3+ (Negative); Clarity Extra Turbid (Clear); Glucose, Urine (Dipstick) 300 mg/dL (Negative); Ketone, Urine Negative (Negative); Leukocyte 75 Leu/uL (Negative); Nitrite 2+ (Negative); Protein, Urine (Dipstick) 100 mg/dL (Neg-Trace); RBC/HPF Greater than 50 HPF (0-3); Urobilinogen Normal mg/dL (Less than 2); pH, Urine 5.5 (5.0-9.0)
[2020-04-17 17:50] LABS: Bacteria/HPF 2+ HPF (None Seen); Yeast-Budding 2+ HPF (None Seen)
[2020-04-17 18:13] LABS: Amphetamine Not Detected (NotDetected); Barbiturates Screen Not Detected (NotDetected); Benzodiazepine Screen Not Detected (NotDetected); Cocaine Metabolite Screen Not Detected (NotDetected); Medtox Control Line Valid? VALID (VALID); Medtox Reader # READER 4; Methadone Not Detected (NotDetected); Methamphetamine Not Detected (NotDetected); Opiate Screen Detected (NotDetected); Oxycodone Screen Not Detected (NotDetected); Phencyclidine (PCP) Not Detected (NotDetected); THC/Cannabinoid Screen Not Detected (NotDetected); Tricyclic Screen Not Detected (NotDetected)
[2020-04-17] MEDS: Ciprofloxacin 500 MG TAB PO SCH (20:22)
[2020-04-18] MEDS: Acetaminophen 325 MG TAB PO SCH ×4 (04:38→21:26)
[2020-04-18] MEDS: Sodium Chloride 0.9% 1,000 ML IV SCH ×2 (04:40→10:28)
[2020-04-18] MEDS: Ciprofloxacin 500 MG TAB PO SCH ×2 (05:01→20:16)
[2020-04-18 05:54] LABS: #Eosinphils 0.1 thou/uL (0.0-0.7); #Lymphocytes 1.2 thou/uL (1.20-3.40); #Monocytes 0.7 thou/uL (0.11-0.59); %Basophils 0.2 % (0.0-1.0); %Eosinophils 0.9 % (0.0-10.0); %Lymphocytes 14.7 % (21.0-51.0); %Monocytes 8.6 % (0.0-10.0); %Neutrophils 75.6 % (42.0-75.0); Mean Corpuscular HGB CONC 32.1 g/dL (32.0-36.0); Mean Corpuscular Hemoglobin 25.3 pg (27.0-31.0); Mean Corpuscular Volume 78.6 fL (78.0-98.0); Mean Platelet Volume 8.7 fL (7.4-10.4); Platelet Count 233 thou/uL (130-400); RBC Distribution Width 15.5 % (11.5-14.5); Red Blood Cell (RBC) Count 3.55 mill/uL (4.20-5.40); White Blood Cell (WBC) Count 7.9 thou/uL (4.8-10.8)
[2020-04-18 05:58] LABS: INR-International Normal Ratio 1.6; PTT 25.1 sec (22.9-36.1); Prothrombin Time 18.7 sec (12.0-14.7)
[2020-04-18 06:10] LABS: Lactic Acid 1.6 mmol/L (0.5-2.2)
[2020-04-18 06:15] LABS: Anion Gap 12 mmol/L (10-20); BUN (Urea Nitrogen) 14 mg/dL (9.8-20.1); Calc. Creatinine Clearance 115 mL/min (70-130); Calcium 8.7 mg/dL (7.8-10.44); Carbon Dioxide 23 mmol/L (23-31); Chloride 107 mmol/L (98-107); Estimated GFR-MDRD 73; Glucose 212 mg/dL (80-115); Magnesium 1.7 mg/dL (1.6-2.6); Sodium 138 mmol/L (136-145)
[2020-04-18] MEDS: Ibuprofen 600 MG TAB PO SCH ×3 (06:26→21:29)
[2020-04-18] MEDS: Insulin Regular 300 UNITS/3 ML VIAL SC PRN ×3 (06:38→21:18)
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
--- NOTE | 2020-04-18 08:01 | RAD ---
EXAM: Single view of the chest HISTORY: Right pneumothorax COMPARISON: 04/17/2020 FINDINGS: Single view of the chest shows a normal sized cardiomediastinal silhouette. There is a rig ht-sided chest tube. There is a small right apical pneumothorax which has decreased in size compared to the prior exam. Atherosclerotic calcifications are seen in the aorta. Linear atelectasis is seen in the left lung base. The bones are unremarkable IMPRESSION: Smaller right-sided pneumothorax.
[2020-04-18] MEDS ORDERED: Magnesium 2 GM/50 ML 2 GM in Premix Bag 1 BAG IVPB SCH (08:45)
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
[2020-04-18] MEDS: Famotidine/PF 20 mg/2ml Vial SLOW IVP SCH ×2 (10:29→20:16)
[2020-04-18] MEDS: Senokot S 8.6-50 MG TAB PO SCH ×2 (10:29→20:16)
[2020-04-18] MEDS: Polyethylene Glycol 3350 17 GM Packet PO SCH (10:29)
[2020-04-18] MEDS: Gabapentin 100 MG CAP PO SCH ×3 (10:29→20:16)
[2020-04-18 12:24] LABS: SARS-CoV-2 MS2 Positive; SARS-CoV-2 N Gene Negative; SARS-CoV-2 S Gene Negative; SARS-CoV-2 orf1ab Negative
[2020-04-18] MEDS ORDERED: Fentanyl 100 MCG/2 ML VIAL ONE ×2 (13:05→15:46)
[2020-04-18] MEDS ORDERED: Bupivacaine HCl 0.5%/Epinephrine 1:200,000/PF 30 ml Vial ONE (13:26)
[2020-04-18] MEDS ORDERED: Rocuronium Bromide 10 MG/ML (10ML VIAL) ONE (14:21)
[2020-04-18] MEDS ORDERED: Ondansetron PF 4 MG/2 ML Vial ONE (14:21)
[2020-04-18] MEDS ORDERED: diphenhydrAMINE 50 MG/ML VIAL ONE (14:21)
[2020-04-18] MEDS ORDERED: Dexamethasone 20 MG/5 ML VIAL ONE (14:21)
[2020-04-18] MEDS ORDERED: Lidocaine 1% PF 5 ML VIAL ONE (14:21)
[2020-04-18] MEDS ORDERED: PROPOFOL 200 MG/20 ML VIAL ONE (14:21)
--- NOTE | 2020-04-18 14:24 | RAD ---
EXAM: LEFT WRIST THREE VIEWS: 04/18/20 HISTORY: ORIF left wrist. FINDINGS: Metal plate and screws placed over the volar aspect of the distal radius with marked improvement in p osition and alignment of the comminuted distal radial fracture as well as some improvement in the ali gnment of the irregularly distal ulnar fracture with persistent foreshortening. IMPRESSION: Metal plate and screws stabilizing distal radial fracture with improved position and alignment. POS: RRE
[2020-04-18] MEDS ORDERED: SUGAMMADEX SODIUM 200 MG/2 ML VIAL ONE (14:46)
[2020-04-18] MEDS ORDERED: Promethazine HCl 25 MG/ML VIAL IM PRN (14:57)
[2020-04-18] MEDS ORDERED: Morphine Sulfate 2 MG/ML SYRINGE SLOW IVP PRN (14:57)
[2020-04-18] MEDS ORDERED: Ondansetron HCl/PF 4 MG/2 ML Vial IVP PRN (14:57)
[2020-04-18 17:26] LABS: #Lymphocytes 0.9 thou/uL (1.20-3.40); #Monocytes 0.3 thou/uL (0.11-0.59); #Neutrophils 9.7 thou/uL (1.40-6.50); %Basophils 0.3 % (0.0-1.0); %Eosinophils 0.4 % (0.0-10.0); %Lymphocytes 8.2 % (21.0-51.0); %Monocytes 2.9 % (0.0-10.0); %Neutrophils 88.3 % (42.0-75.0); Hemoglobin 9.5 g/dL (12.0-16.0); Mean Corpuscular HGB CONC 31.4 g/dL (32.0-36.0); Mean Corpuscular Hemoglobin 24.8 pg (27.0-31.0); Mean Platelet Volume 8.7 fL (7.4-10.4); Platelet Count 250 thou/uL (130-400); RBC Distribution Width 15.6 % (11.5-14.5); Red Blood Cell (RBC) Count 3.82 mill/uL (4.20-5.40)
[2020-04-18] MEDS: Warfarin Sodium 5 MG TAB PO SCH (17:27)
[2020-04-18 17:40] LABS: Anion Gap 14 mmol/L (10-20); BUN (Urea Nitrogen) 12 mg/dL (9.8-20.1); Calc. Creatinine Clearance 119 mL/min (70-130); Calcium 8.7 mg/dL (7.8-10.44); Carbon Dioxide 20 mmol/L (23-31); Chloride 107 mmol/L (98-107); Estimated GFR-MDRD 76; Glucose 233 mg/dL (80-115); Magnesium 1.9 mg/dL (1.6-2.6); Phosphorus 2.9 mg/dL (2.3-4.7); Potassium 4.3 mmol/L (3.5-5.1); Sodium 137 mmol/L (136-145)
[2020-04-18] MEDS ORDERED: Ketorolac Tromethamine 30 MG/ML VIAL IVP SCH (18:00)
[2020-04-18] MEDS: CEFAZOLIN 2 GM in Premix Bag 1 BAG IVPB SCH (20:15)
[2020-04-18] MEDS: Enoxaparin Sodium 40 MG/0.4 ML SYRINGE SC SCH (20:16)
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
[2020-04-18] MEDS ORDERED: Furosemide 20 MG/2 ML VIAL SLOW IVP SCH (21:30)
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
[2020-04-19 03:51] LABS: #Lymphocytes 0.7 thou/uL (1.20-3.40); #Monocytes 0.6 thou/uL (0.11-0.59); #Neutrophils 8.2 thou/uL (1.40-6.50); %Basophils 0.1 % (0.0-1.0); %Eosinophils 0.3 % (0.0-10.0); %Lymphocytes 7.6 % (21.0-51.0); %Monocytes 5.9 % (0.0-10.0); %Neutrophils 86.1 % (42.0-75.0); Hemoglobin 8.4 g/dL (12.0-16.0); Mean Corpuscular HGB CONC 31.3 g/dL (32.0-36.0); Mean Corpuscular Hemoglobin 24.4 pg (27.0-31.0); Mean Corpuscular Volume 77.8 fL (78.0-98.0); Mean Platelet Volume 8.3 fL (7.4-10.4); Platelet Count 216 thou/uL (130-400); RBC Distribution Width 15.3 % (11.5-14.5); Red Blood Cell (RBC) Count 3.43 mill/uL (4.20-5.40); White Blood Cell (WBC) Count 9.6 thou/uL (4.8-10.8)
[2020-04-19 03:58] LABS: Hemoglobin A1c 9.5 % (4.0-6.0)
[2020-04-19 04:02] LABS: INR-International Normal Ratio 1.8; PTT 52.4 sec (22.9-36.1); Prothrombin Time 20.7 sec (12.0-14.7)
[2020-04-19 04:14] LABS: Anion Gap 10 mmol/L (10-20); BUN (Urea Nitrogen) 13 mg/dL (9.8-20.1); Calc. Creatinine Clearance 122 mL/min (70-130); Calcium 8.6 mg/dL (7.8-10.44); Carbon Dioxide 26 mmol/L (23-31); Chloride 105 mmol/L (98-107); Estimated GFR-MDRD 78; Glucose 288 mg/dL (80-115); Magnesium 1.8 mg/dL (1.6-2.6); Phosphorus 3.2 mg/dL (2.3-4.7); Potassium 4.4 mmol/L (3.5-5.1); Sodium 137 mmol/L (136-145)
[2020-04-19] MEDS: Insulin Regular 300 UNITS/3 ML VIAL SC PRN ×4 (04:55→22:36)
[2020-04-19] MEDS: CEFAZOLIN 2 GM in Premix Bag 1 BAG IVPB SCH (04:55)
[2020-04-19] MEDS: Acetaminophen 325 MG TAB PO SCH ×4 (04:55→22:36)
[2020-04-19] MEDS: Ibuprofen 600 MG TAB PO SCH ×3 (04:55→22:38)
[2020-04-19] MEDS: Ciprofloxacin 500 MG TAB PO SCH ×2 (06:15→20:06)
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
[2020-04-19] MEDS: Senokot S 8.6-50 MG TAB PO SCH ×2 (09:26→20:05)
[2020-04-19] MEDS: Amlodipine 5 MG TAB PO SCH (09:26)
[2020-04-19] MEDS: Ferrous Sulfate 325 MG TAB PO SCH ×2 (09:26→16:19)
[2020-04-19] MEDS: Famotidine/PF 20 mg/2ml Vial SLOW IVP SCH ×2 (09:27→20:06)
[2020-04-19] MEDS: Gabapentin 100 MG CAP PO SCH ×3 (09:27→20:06)
[2020-04-19] MEDS: Enoxaparin Sodium 40 MG/0.4 ML SYRINGE SC SCH ×2 (09:28→20:06)
[2020-04-19] MEDS: Ascorbic Acid 500 mg Chewable Tablet PO SCH ×2 (09:28→16:19)
[2020-04-19] MEDS: Polyethylene Glycol 3350 17 GM Packet PO SCH (09:28)
--- NOTE | 2020-04-19 11:46 | RAD ---
PORTABLE CHEST: INDICATION: Followup chest tube. COMPARISON: 04/18/2020. FINDINGS: Right chest tube overlies the right lung base and is obscured by the hemidiaphragm. Both lungs are well aerated and there is no evidence of pneumothorax. There is linear infiltrate or atelectasis in the left lower lung which is stable from yesterday. Mild cardiomegaly. The vascular markings are upper normal and stable. IMPRESSION: No acute interval change. POS: AH
[2020-04-19] MEDS: Warfarin Sodium 10 MG TAB PO SCH (17:27)
[2020-04-19] MEDS: HYDROcodone/Acetaminophen 5/325 mg Tablet PO PRN (17:27)
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
[2020-04-20] MEDS: HYDROcodone/Acetaminophen 5/325 mg Tablet PO PRN ×3 (05:01→17:34)
[2020-04-20] MEDS: Ciprofloxacin 500 MG TAB PO SCH ×2 (05:01→20:17)
[2020-04-20] MEDS: Acetaminophen 325 MG TAB PO SCH ×4 (05:01→21:18)
[2020-04-20] MEDS: Insulin Regular 300 UNITS/3 ML VIAL SC PRN ×4 (06:02→20:17)
[2020-04-20] MEDS: Ibuprofen 600 MG TAB PO SCH ×3 (06:16→21:18)
[2020-04-20 06:44] LABS: INR-International Normal Ratio 1.9; Prothrombin Time 21.8 sec (12.0-14.7)
[2020-04-20 06:45] LABS: PTT 51.9 sec (22.9-36.1)
[2020-04-20 07:00] LABS: Anion Gap 12 mmol/L (10-20); BUN (Urea Nitrogen) 16 mg/dL (9.8-20.1); Calc. Creatinine Clearance 124 mL/min (70-130); Calcium 8.8 mg/dL (7.8-10.44); Carbon Dioxide 25 mmol/L (23-31); Chloride 103 mmol/L (98-107); Estimated GFR-MDRD 80; Glucose 203 mg/dL (80-115); Magnesium 1.9 mg/dL (1.6-2.6); Phosphorus 3.1 mg/dL (2.3-4.7); Potassium 4.5 mmol/L (3.5-5.1); Sodium 135 mmol/L (136-145)
[2020-04-20 07:27] LABS: #Eosinphils 0.2 thou/uL (0.0-0.7); #Lymphocytes 1.2 thou/uL (1.20-3.40); #Neutrophils 7.7 thou/uL (1.40-6.50); %Basophils 0.4 % (0.0-1.0); %Eosinophils 1.9 % (0.0-10.0); %Lymphocytes 12.1 % (21.0-51.0); %Monocytes 9.4 % (0.0-10.0); %Neutrophils 76.1 % (42.0-75.0); Hemoglobin 8.9 g/dL (12.0-16.0); Mean Corpuscular HGB CONC 29.7 g/dL (32.0-36.0); Mean Corpuscular Hemoglobin 23.6 pg (27.0-31.0); Mean Corpuscular Volume 79.5 fL (78.0-98.0); Platelet Count 295 thou/uL (130-400); RBC Distribution Width 15.5 % (11.5-14.5); Red Blood Cell (RBC) Count 3.76 mill/uL (4.20-5.40); White Blood Cell (WBC) Count 10.1 thou/uL (4.8-10.8)
[2020-04-20 07:28] LABS: Hypochromia SLIGHT = 6-15 cells (100X) (0-5/hpf); MDiff Complete? YES; Microcytosis SLIGHT = 6-15 cells (100X) (0-5/hpf); Platelet Morphology Comment Appears Adequate; Polychromasia SLIGHT = 2-3 cells (100X) (0-2/hpf)
[2020-04-20] MEDS: Ascorbic Acid 500 mg Chewable Tablet PO SCH ×2 (08:30→16:13)
[2020-04-20] MEDS: Amlodipine 5 MG TAB PO SCH (08:31)
[2020-04-20] MEDS: Ferrous Sulfate 325 MG TAB PO SCH ×2 (08:31→16:13)
[2020-04-20] MEDS: Gabapentin 100 MG CAP PO SCH ×3 (08:31→20:17)
[2020-04-20] MEDS: Enoxaparin Sodium 40 MG/0.4 ML SYRINGE SC SCH ×2 (08:32→20:17)
[2020-04-20] MEDS: Famotidine/PF 20 mg/2ml Vial SLOW IVP SCH (08:32)
[2020-04-20] MEDS: Senokot S 8.6-50 MG TAB PO SCH ×2 (08:33→20:17)
[2020-04-20] MEDS: Polyethylene Glycol 3350 17 GM Packet PO SCH (08:33)
--- NOTE | 2020-04-20 09:10 | RAD ---
EXAM: Single view of the chest HISTORY: Chest tube follow-up with pneumothorax COMPARISON: 04/19/2020 FINDINGS: Single view of the chest shows a normal sized cardiomediastinal silhouette. There is a sta ble right-sided chest tube with a small right apical pneumothorax There is no evidence of consolidation, mass, or pleural effusion. The bones are unremarkable IMPRESSION: Persistent small right apical pneumothorax
[2020-04-20] MEDS: Warfarin Sodium 5 MG TAB PO SCH (16:13)
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
[2020-04-20] MEDS: Famotidine 20 MG TAB PO SCH (20:17)
[2020-04-20] MEDS: Insulin Glargine 10 UNITS in Pre-Filled Syringe 1 EACH SC SCH (21:18)
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
[2020-04-21] MEDS: Acetaminophen 325 MG TAB PO SCH ×2 (04:59→09:43)
[2020-04-21] MEDS: Ibuprofen 600 MG TAB PO SCH ×3 (04:59→20:36)
[2020-04-21 05:40] LABS: #Eosinphils 0.2 thou/uL (0.0-0.7); #Lymphocytes 1.3 thou/uL (1.20-3.40); #Monocytes 0.6 thou/uL (0.11-0.59); #Neutrophils 3.7 thou/uL (1.40-6.50); %Basophils 0.6 % (0.0-1.0); %Eosinophils 3.8 % (0.0-10.0); %Lymphocytes 22.3 % (21.0-51.0); %Monocytes 9.6 % (0.0-10.0); %Neutrophils 63.7 % (42.0-75.0); Hemoglobin 8.3 g/dL (12.0-16.0); Mean Corpuscular HGB CONC 30.5 g/dL (32.0-36.0); Mean Corpuscular Hemoglobin 24.3 pg (27.0-31.0); Mean Corpuscular Volume 79.7 fL (78.0-98.0); Mean Platelet Volume 8.3 fL (7.4-10.4); Platelet Count 297 thou/uL (130-400); RBC Distribution Width 15.3 % (11.5-14.5); White Blood Cell (WBC) Count 5.8 thou/uL (4.8-10.8)
[2020-04-21 05:46] LABS: INR-International Normal Ratio 2.1; Prothrombin Time 23.6 sec (12.0-14.7)
[2020-04-21 06:02] LABS: Anion Gap 10 mmol/L (10-20); BUN (Urea Nitrogen) 17 mg/dL (9.8-20.1); Calc. Creatinine Clearance 131 mL/min (70-130); Calcium 8.6 mg/dL (7.8-10.44); Carbon Dioxide 28 mmol/L (23-31); Chloride 102 mmol/L (98-107); Estimated GFR-MDRD 85; Glucose 172 mg/dL (80-115); Magnesium 1.7 mg/dL (1.6-2.6); Phosphorus 3.7 mg/dL (2.3-4.7); Potassium 4.2 mmol/L (3.5-5.1); Sodium 136 mmol/L (136-145)
[2020-04-21] MEDS: Insulin Regular 300 UNITS/3 ML VIAL SC PRN ×2 (06:05→15:54)
[2020-04-21] MEDS: HYDROcodone/Acetaminophen 5/325 mg Tablet PO PRN ×5 (06:23→22:10)
--- NOTE | 2020-04-21 09:33 | RAD ---
EXAM: CHEST ONE VIEW HISTORY: Right pneumothorax. Follow-up evaluation. COMPARISON: 04/20/2020 FINDINGS: There has been interval removal of the right-sided thoracostomy tube. No definitive pneumothorax is s een, and there is no pleural fluid. There is minimal patchy density persisting in the right infrahilar region of the medial right lung base which may be related to volume loss. Volume loss is a gain seen in the region of the lingula. Vascular calcifications are seen in thoracic aorta. IMPRESSION: Interval removal of the right-sided thoracostomy tube without obvious pneumothorax appreciated. Volum e loss is present at each lung base.
[2020-04-21] MEDS: Enoxaparin Sodium 40 MG/0.4 ML SYRINGE SC SCH ×2 (09:43→20:44)
[2020-04-21] MEDS: Polyethylene Glycol 3350 17 GM Packet PO SCH (09:43)
[2020-04-21] MEDS: Ascorbic Acid 500 mg Chewable Tablet PO SCH ×2 (09:43→18:16)
[2020-04-21] MEDS: Senokot S 8.6-50 MG TAB PO SCH ×2 (09:43→20:46)
[2020-04-21] MEDS: Ferrous Sulfate 325 MG TAB PO SCH ×2 (09:44→18:16)
[2020-04-21] MEDS: Famotidine 20 MG TAB PO SCH ×2 (09:44→20:46)
[2020-04-21] MEDS: Amlodipine 5 MG TAB PO SCH (09:44)
[2020-04-21] MEDS: Gabapentin 100 MG CAP PO SCH ×3 (09:44→20:46)
--- NOTE | 2020-04-21 10:04 | PRG ---
DATE OF SERVICE: 04/21/2020 SUBJECTIVE: She is doing much better. Pain in the left wrist is improving. She is complaining of other aches and pains and she will direct those questions toward trauma. She is moving that left hand well and has very little swelling. OBJECTIVE: VITAL SIGNS: Stable, afebrile. GENERAL: Speech, clear. Affect, pleasant. Answer questions appropriately. She is alert and oriented x3. HEENT: Head, nontraumatic. Face, symmetric. CHEST: Some tenderness with breathing. She does have a sternal fracture. EXTREMITIES: Left upper extremity splinted, moving hand well. Again, minimal swelling, but she does have some bruising to the digits. LABORATORY DATA: H and H 8.3 and 27.1. ASSESSMENT: Stable. PLAN: Placement. Ortho followup in 10 to 14 days. Keep moving that hand, but continue to put no weight on it also, which the patient understands. Job ID: [id number]
[2020-04-21] MEDS ORDERED: Acetaminophen 325 MG TAB PO PRN (11:06)
[2020-04-21] MEDS: Warfarin Sodium 10 MG TAB PO SCH (18:16)
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
[2020-04-21] MEDS: Insulin Glargine 10 UNITS in Pre-Filled Syringe 1 EACH SC SCH (20:46)
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
[2020-04-22] MEDS: HYDROcodone/Acetaminophen 5/325 mg Tablet PO PRN ×4 (03:25→14:48)
[2020-04-22] MEDS: Insulin Regular 300 UNITS/3 ML VIAL SC PRN ×2 (07:19→12:25)
[2020-04-22] MEDS: Ibuprofen 600 MG TAB PO SCH ×2 (07:25→14:26)
[2020-04-22] MEDS: Gabapentin 100 MG CAP PO SCH ×2 (08:57→14:46)
[2020-04-22] MEDS: Amlodipine 5 MG TAB PO SCH (08:57)
[2020-04-22] MEDS: Famotidine 20 MG TAB PO SCH (08:57)
[2020-04-22] MEDS: Ferrous Sulfate 325 MG TAB PO SCH (08:57)
[2020-04-22] MEDS: Senokot S 8.6-50 MG TAB PO SCH (08:57)
[2020-04-22] MEDS: Ascorbic Acid 500 mg Chewable Tablet PO SCH (08:57)
[2020-04-22] MEDS: Enoxaparin Sodium 40 MG/0.4 ML SYRINGE SC SCH (08:57)
[2020-04-22] MEDS: Polyethylene Glycol 3350 17 GM Packet PO SCH (08:57)
[2020-04-22] MEDS ORDERED: Cephalexin 250 MG CAP PO SCH (09:00)
[2020-04-22] MEDS ORDERED: Non-Formulary Item 1 EACH (Cephalexin [Keflex] 500 MG) PO SCH (09:00)
--- NOTE | 2020-04-22 11:58 | RAD ---
Chest AP view INDICATION: History of chest 2 COMPARISON: April 21, 2020 FINDINGS: Lungs: There is persistent mild subsegmental volume loss in the left lung base. Cardiac silhouette: Stable mild cardiomegaly Pulmonary vasculature: Normal Pleural spaces: No pleural effusion or pneumothorax is demonstrated. Upper abdomen: No abnormality seen. Osseous structures: No acute osseous abnormality. Additional findings: None. IMPRESSION: No pneumothorax identified. Persistent subsegmental volume loss in the left lung base. Stable mild ca rdiomegaly
[2020-04-22 13:41] LABS: INR-International Normal Ratio 2.1; Prothrombin Time 23.7 sec (12.0-14.7)
[2020-04-22 13:42] LABS: PTT 58.3 sec (22.9-36.1)
[2020-04-22 15:08] VITALS: BP 110/64; TEMP 98.3
[2020-04-22] MEDS ORDERED: Insulin Glargine 15 UNITS in Pre-Filled Syringe 1 EACH SC SCH (21:00)
== END 2020-04-22 15:50 | DRG 511 ==
LOC: ERS 01:20 → SURG A 05:32
PROVIDERS: ADMIT Surgery; ATTEND Surgery
PROC: 0W9930Z Drainage of Right Pleural Cavity with Drainage Device, Percutaneous Approach (ICD-10-PCS; 2020-04-17)
PROC: 30233K1 Transfusion of Nonautologous Frozen Plasma into Peripheral Vein, Percutaneous Approach (ICD-10-PCS; 2020-04-17)
PROC: 30233L1 Transfusion of Nonautologous Fresh Plasma into Peripheral Vein, Percutaneous Approach (ICD-10-PCS; 2020-04-17)
PROC: 0PSJ04Z Reposition Left Radius with Internal Fixation Device, Open Approach (ICD-10-PCS; principal; 2020-04-18)
PROC: 0PSL04Z Reposition Left Ulna with Internal Fixation Device, Open Approach (ICD-10-PCS; 2020-04-18)
DX: S52.552A Other extraarticular fracture of lower end of left radius, initial encounter for closed fracture (principal); S22.21XA Fracture of manubrium, initial encounter for closed fracture; S27.0XXA Traumatic pneumothorax, initial encounter; S22.069A Unspecified fracture of T7-T8 vertebra, initial encounter for closed fracture; S22.41XA Multiple fractures of ribs, right side, initial encounter for closed fracture; D68.2 Hereditary deficiency of other clotting factors; N39.0 Urinary tract infection, site not specified; S52.692A Other fracture of lower end of left ulna, initial encounter for closed fracture; S30.1XXA Contusion of abdominal wall, initial encounter; L97.529 Non-pressure chronic ulcer of other part of left foot with unspecified severity; E66.9 Obesity, unspecified; E11.621 Type 2 diabetes mellitus with foot ulcer; B96.20 Unspecified Escherichia coli [E. coli] as the cause of diseases classified elsewhere; Z11.59 Encounter for screening for other viral diseases; Y92.410 Unspecified street and highway as the place of occurrence of the external cause; Z79.01 Long term (current) use of anticoagulants; Z86.718 Personal history of other venous thrombosis and embolism; Z79.899 Other long term (current) drug therapy; Z79.4 Long term (current) use of insulin; V47.5XXA Car driver injured in collision with fixed or stationary object in traffic accident, initial encounter; Z68.36 Body mass index [BMI] 36.0-36.9, adult
CPT/HCPCS: 29125; 36415; 36416; 36430; 70450; 70498; 71045; 71250; 71260; 72125; 74177; 76000; 80048; 80053; 80306; 80307; 81001; 83036; 83605; 83735; 83880; 84100; 84484; 85025; 85610; 85730; 86850; 86900; 86901; 87077; 87086; 87186; 87635; 93005; 94002; 96374; 96375; C1713; G0390; J0360; J0670; J0690; J1100; J1200; J1650; J1815; J1885; J1940; J2270; J2405; J2704; J3010; J3475; P9059; Q9967; S0028; U0003

== ENCOUNTER 2021-08-05 19:54 | Inpatient (IN) | payer MEDICARE, BC ==
[2021-08-05 22:03] LABS: #Eosinphils 0.1 thou/uL (0.0-0.7); #Lymphocytes 0.7 thou/uL (1.20-3.40); #Monocytes 0.5 thou/uL (0.11-0.59); #Neutrophils 5.9 thou/uL (1.40-6.50); %Basophils 0.2 % (0.0-1.0); %Eosinophils 1.4 % (0.0-10.0); %Lymphocytes 9.8 % (21.0-51.0); %Monocytes 6.8 % (0.0-10.0); %Neutrophils 81.7 % (42.0-75.0); Hemoglobin 12.7 g/dL (12.0-16.0); Mean Corpuscular HGB CONC 32.5 g/dL (32.0-36.0); Mean Corpuscular Hemoglobin 27.1 pg (27.0-31.0); Mean Corpuscular Volume 83.4 fL (78.0-98.0); Mean Platelet Volume 8.7 fL (7.4-10.4); Platelet Count 257 thou/uL (130-400); RBC Distribution Width 14.9 % (11.5-14.5); Red Blood Cell (RBC) Count 4.69 mill/uL (4.20-5.40); White Blood Cell (WBC) Count 7.2 thou/uL (4.8-10.8)
[2021-08-05 22:17] LABS: ALT (SGPT) 19 U/L (8-55); AST (SGOT) 17 U/L (5-34); Albumin 4.3 g/dL (3.4-4.8); Alkaline Phosphatase 87 U/L (40-110); Anion Gap 17 mmol/L (10-20); BUN (Urea Nitrogen) 14 mg/dL (9.8-20.1); Bilirubin, Total 1.1 mg/dL (0.2-1.2); CK (CPK) 167 U/L (29-168); Calc. Creatinine Clearance 0 mL/min (70-130); Calcium 9.5 mg/dL (7.8-10.44); Carbon Dioxide 21 mmol/L (23-31); Chloride 98 mmol/L (98-107); Globulin 4.1 g/dL (2.4-3.5); Glucose 184 mg/dL (80-115); Magnesium 1.7 mg/dL (1.6-2.6); Potassium 3.9 mmol/L (3.5-5.1); Protein, Total 8.4 g/dL (5.8-8.1); Sodium 132 mmol/L (136-145)
[2021-08-05 22:26] LABS: INR-International Normal Ratio 3.3; PTT 65.3 sec (22.9-36.1); Prothrombin Time 34.2 sec (12.0-14.7)
[2021-08-05] MEDS ORDERED: Vancomycin 1 GM/200 ML BAG ONE (22:37)
[2021-08-05] MEDS ORDERED: Cefepime 2 GM VIAL ONE (22:37)
[2021-08-05 22:41] LABS: Bacteria/HPF None Seen HPF (None Seen); Bilirubin Negative (Negative); Blood, Urine Trace (Negative); Clarity Clear (Clear); Glucose, Urine (Dipstick) Normal (Negative); Ketone, Urine 20 mg/dL (Negative); Leukocyte Negative Leu/uL (Negative); Nitrite Negative (Negative); Protein, Urine (Dipstick) 50 mg/dL (Neg-Trace); RBC/HPF 0-3 HPF (0-3); Specific Gravity, Urine 1.013 (1.002-1.036); Squamous Epithelial 0-3 HPF (0-3); Urobilinogen Normal mg/dL (Less than 2); WBC/HPF 0-3 HPF (0-3); pH, Urine 5.5 (5.0-9.0)
[2021-08-06] MEDS ORDERED: Ondansetron PF 4 MG/2 ML Vial IVP PRN (03:07)
[2021-08-06] MEDS ORDERED: Dextrose 50% Abboject 50 ML SYRINGE SLOW IVP PRN (03:20)
[2021-08-06] MEDS ORDERED: Dextrose 5% in Water 1,000 ML IV PRN (03:20)
[2021-08-06] MEDS ORDERED: Vancomycin 1 GM in Premix Bag 1 BAG IVPB SCH (04:30)
[2021-08-06 04:43] LABS: #Eosinphils 0.2 thou/uL (0.0-0.7); #Monocytes 0.7 thou/uL (0.11-0.59); %Basophils 0.4 % (0.0-1.0); %Eosinophils 2.4 % (0.0-10.0); %Lymphocytes 12.1 % (21.0-51.0); %Monocytes 9.4 % (0.0-10.0); %Neutrophils 75.7 % (42.0-75.0); Hemoglobin 10.6 g/dL (12.0-16.0); Mean Corpuscular HGB CONC 32.1 g/dL (32.0-36.0); Mean Corpuscular Hemoglobin 26.9 pg (27.0-31.0); Mean Corpuscular Volume 83.8 fL (78.0-98.0); Mean Platelet Volume 8.5 fL (7.4-10.4); Platelet Count 238 thou/uL (130-400); RBC Distribution Width 14.8 % (11.5-14.5); Red Blood Cell (RBC) Count 3.95 mill/uL (4.20-5.40); White Blood Cell (WBC) Count 7.9 thou/uL (4.8-10.8)
[2021-08-06 05:06] LABS: Anion Gap 14 mmol/L (10-20); BUN (Urea Nitrogen) 12 mg/dL (9.8-20.1); Calc. Creatinine Clearance 110 mL/min (70-130); Calcium 8.9 mg/dL (7.8-10.44); Carbon Dioxide 21 mmol/L (23-31); Chloride 104 mmol/L (98-107); Glucose 177 mg/dL (80-115); Potassium 4.3 mmol/L (3.5-5.1); Sodium 135 mmol/L (136-145)
[2021-08-06] MEDS ORDERED: Magnesium 2 GM/50 ML 2 GM in Premix Bag 1 BAG IVPB SCH (06:45)
[2021-08-06] MEDS: Cefepime 2 GM in Sodium Chloride 0.9% 100 ML IVPB SCH ×2 (07:53→20:31)
[2021-08-06] MEDS ORDERED: Magnevist 469MG/ML 20 ML VIAL ONE (10:48)
[2021-08-06] MEDS: HumaLOG 300 UNITS/3 ML VIAL SC PRN ×2 (11:24→17:28)
[2021-08-06] MEDS ORDERED: Furosemide 40 MG/4 ML VIAL SLOW IVP SCH (14:45)
[2021-08-06] MEDS: Vancomycin HCl 750 MG in Sodium Chloride 0.9% 250 ML 250 ML IVPB SCH (17:28)
[2021-08-06 19:43] LABS: Troponin I 0.012 ng/mL (< 0.028)
[2021-08-07 05:48] LABS: #Eosinphils 0.3 thou/uL (0.0-0.7); #Lymphocytes 1.2 thou/uL (1.20-3.40); #Monocytes 0.7 thou/uL (0.11-0.59); #Neutrophils 4.3 thou/uL (1.40-6.50); %Basophils 0.4 % (0.0-1.0); %Eosinophils 5.2 % (0.0-10.0); %Lymphocytes 18.4 % (21.0-51.0); %Monocytes 10.3 % (0.0-10.0); %Neutrophils 65.7 % (42.0-75.0); Mean Corpuscular HGB CONC 31.7 g/dL (32.0-36.0); Mean Corpuscular Hemoglobin 26.7 pg (27.0-31.0); Mean Corpuscular Volume 84.2 fL (78.0-98.0); Mean Platelet Volume 8.2 fL (7.4-10.4); Platelet Count 278 thou/uL (130-400); RBC Distribution Width 14.7 % (11.5-14.5); Red Blood Cell (RBC) Count 4.11 mill/uL (4.20-5.40); White Blood Cell (WBC) Count 6.5 thou/uL (4.8-10.8)
[2021-08-07 05:55] LABS: INR-International Normal Ratio 3.2; Prothrombin Time 33.7 sec (12.0-14.7)
[2021-08-07 06:05] LABS: Anion Gap 15 mmol/L (10-20); BUN (Urea Nitrogen) 13 mg/dL (9.8-20.1); Calc. Creatinine Clearance 92 mL/min (70-130); Calcium 9.3 mg/dL (7.8-10.44); Carbon Dioxide 22 mmol/L (23-31); Chloride 104 mmol/L (98-107); Glucose 244 mg/dL (80-115); Magnesium 1.8 mg/dL (1.6-2.6); Sodium 137 mmol/L (136-145)
[2021-08-07 06:08] LABS: Hemoglobin A1c 8.5 % (4.0-6.0)
[2021-08-07] MEDS: Vancomycin HCl 750 MG in Sodium Chloride 0.9% 250 ML 250 ML IVPB SCH ×2 (06:35→17:04)
[2021-08-07] MEDS: HumaLOG 300 UNITS/3 ML VIAL SC PRN ×2 (06:35→22:07)
[2021-08-07] MEDS: Cefepime 2 GM in Sodium Chloride 0.9% 100 ML IVPB SCH ×2 (11:28→21:08)
[2021-08-07] MEDS ORDERED: Warfarin Sodium 5 MG TAB PO SCH (17:00)
[2021-08-07 18:12] LABS: Vancomycin, Trough 23.5 ug/mL
[2021-08-08] MEDS: Vancomycin HCl 750 MG in Sodium Chloride 0.9% 250 ML 250 ML IVPB SCH (05:57)
[2021-08-08 06:01] LABS: #Eosinphils 0.2 thou/uL (0.0-0.7); #Lymphocytes 1.1 thou/uL (1.20-3.40); #Monocytes 0.7 thou/uL (0.11-0.59); #Neutrophils 3.9 thou/uL (1.40-6.50); %Basophils 0.7 % (0.0-1.0); %Eosinophils 3.7 % (0.0-10.0); %Lymphocytes 18.6 % (21.0-51.0); %Monocytes 11.1 % (0.0-10.0); %Neutrophils 65.8 % (42.0-75.0); Hemoglobin 10.5 g/dL (12.0-16.0); Mean Corpuscular HGB CONC 31.6 g/dL (32.0-36.0); Mean Corpuscular Hemoglobin 26.7 pg (27.0-31.0); Mean Corpuscular Volume 84.5 fL (78.0-98.0); Mean Platelet Volume 7.9 fL (7.4-10.4); Platelet Count 251 thou/uL (130-400); RBC Distribution Width 14.7 % (11.5-14.5); Red Blood Cell (RBC) Count 3.95 mill/uL (4.20-5.40); White Blood Cell (WBC) Count 5.9 thou/uL (4.8-10.8)
[2021-08-08 06:10] LABS: INR-International Normal Ratio 2.4; Prothrombin Time 26.5 sec (12.0-14.7)
[2021-08-08] MEDS: HumaLOG 300 UNITS/3 ML VIAL SC PRN ×3 (06:16→20:56)
[2021-08-08 06:34] LABS: Vancomycin, Trough 7.9 ug/mL
[2021-08-08 06:36] LABS: Anion Gap 12 mmol/L (10-20); BUN (Urea Nitrogen) 15 mg/dL (9.8-20.1); Calc. Creatinine Clearance 105 mL/min (70-130); Calcium 9.3 mg/dL (7.8-10.44); Carbon Dioxide 24 mmol/L (23-31); Chloride 106 mmol/L (98-107); Glucose 229 mg/dL (80-115); Potassium 3.8 mmol/L (3.5-5.1); Sodium 138 mmol/L (136-145)
[2021-08-08] MEDS: Acetaminophen 325 MG TAB PO PRN (08:21)
[2021-08-08] MEDS: Cefepime 2 GM in Sodium Chloride 0.9% 100 ML IVPB SCH ×2 (08:43→20:45)
[2021-08-08] MEDS: Vancomycin 1.5 GRAM/300 ML BAG 1.5 GM in Premix Bag 1 BAG IVPB SCH (17:44)
[2021-08-08] MEDS: Carvedilol 6.25 MG TAB PO SCH (20:46)
[2021-08-09 05:52] LABS: #Eosinphils 0.2 thou/uL (0.0-0.7); #Lymphocytes 1.2 thou/uL (1.20-3.40); #Monocytes 0.6 thou/uL (0.11-0.59); #Neutrophils 4.7 thou/uL (1.40-6.50); %Basophils 0.4 % (0.0-1.0); %Lymphocytes 17.7 % (21.0-51.0); %Monocytes 9.1 % (0.0-10.0); %Neutrophils 69.7 % (42.0-75.0); Hemoglobin 10.6 g/dL (12.0-16.0); Mean Corpuscular Volume 84.1 fL (78.0-98.0); Mean Platelet Volume 7.9 fL (7.4-10.4); Platelet Count 264 thou/uL (130-400); RBC Distribution Width 14.8 % (11.5-14.5); Red Blood Cell (RBC) Count 3.94 mill/uL (4.20-5.40); White Blood Cell (WBC) Count 6.8 thou/uL (4.8-10.8)
[2021-08-09 06:02] LABS: Prothrombin Time 23.2 sec (12.0-14.7)
[2021-08-09 06:17] LABS: Anion Gap 14 mmol/L (10-20); BUN (Urea Nitrogen) 15 mg/dL (9.8-20.1); Calc. Creatinine Clearance 0 mL/min (70-130); Calcium 9.3 mg/dL (7.8-10.44); Carbon Dioxide 23 mmol/L (23-31); Chloride 105 mmol/L (98-107); Glucose 220 mg/dL (80-115); Potassium 4.2 mmol/L (3.5-5.1); Sodium 138 mmol/L (136-145)
[2021-08-09] MEDS: Vancomycin 1.5 GRAM/300 ML BAG 1.5 GM in Premix Bag 1 BAG IVPB SCH ×2 (06:36→18:23)
[2021-08-09] MEDS: HumaLOG 300 UNITS/3 ML VIAL SC PRN ×2 (06:55→18:24)
[2021-08-09] MEDS: Carvedilol 6.25 MG TAB PO SCH ×2 (09:17→21:11)
[2021-08-09] MEDS: Cefepime 2 GM in Sodium Chloride 0.9% 100 ML IVPB SCH ×2 (09:17→21:07)
[2021-08-09] MEDS ORDERED: Heparin 25,000 units/D5W 500 ML IVPB SCH (18:30)
[2021-08-09] MEDS ORDERED: Heparin 10,000 UNITS/ 10 ML VIAL SLOW IVP SCH (18:30)
[2021-08-09 19:18] LABS: Hemoglobin 10.8 g/dL (12.0-16.0); Platelet Count 261 thou/uL (130-400)
[2021-08-09 19:29] LABS: INR-International Normal Ratio 1.8; Prothrombin Time 21.2 sec (12.0-14.7)
[2021-08-09 19:30] LABS: PTT 42.3 sec (22.9-36.1)
[2021-08-09] MEDS ORDERED: Communication Order-Pharmacy FS SCH (23:00)
[2021-08-10 02:23] LABS: PTT Greater than 250.0 sec (22.9-36.1)
[2021-08-10 05:14] LABS: #Eosinphils 0.3 thou/uL (0.0-0.7); #Lymphocytes 1.1 thou/uL (1.20-3.40); #Monocytes 0.6 thou/uL (0.11-0.59); %Basophils 0.6 % (0.0-1.0); %Eosinophils 4.1 % (0.0-10.0); %Monocytes 8.2 % (0.0-10.0); %Neutrophils 71.1 % (42.0-75.0); Hemoglobin 10.7 g/dL (12.0-16.0); Mean Corpuscular HGB CONC 31.8 g/dL (32.0-36.0); Mean Corpuscular Volume 84.9 fL (78.0-98.0); Mean Platelet Volume 8.2 fL (7.4-10.4); Platelet Count 261 thou/uL (130-400); RBC Distribution Width 14.8 % (11.5-14.5); Red Blood Cell (RBC) Count 3.95 mill/uL (4.20-5.40); White Blood Cell (WBC) Count 7.1 thou/uL (4.8-10.8)
[2021-08-10] MEDS: Vancomycin 1.5 GRAM/300 ML BAG 1.5 GM in Premix Bag 1 BAG IVPB SCH (05:21)
[2021-08-10] MEDS: Acetaminophen 325 MG TAB PO PRN (05:22)
[2021-08-10 05:24] LABS: INR-International Normal Ratio 1.7; PTT 62.4 sec (22.9-36.1); Prothrombin Time 19.8 sec (12.0-14.7)
[2021-08-10 05:39] LABS: Anion Gap 14 mmol/L (10-20); BUN (Urea Nitrogen) 13 mg/dL (9.8-20.1); Calc. Creatinine Clearance 114 mL/min (70-130); Calcium 9.1 mg/dL (7.8-10.44); Carbon Dioxide 19 mmol/L (23-31); Chloride 106 mmol/L (98-107); Glucose 206 mg/dL (80-115); Potassium 3.8 mmol/L (3.5-5.1); Sodium 135 mmol/L (136-145)
[2021-08-10 05:40] LABS: Vancomycin, Trough 24.2 ug/mL
[2021-08-10] MEDS ORDERED: Carvedilol 6.25 MG TAB PO SCH (09:00)
[2021-08-10] MEDS: Carvedilol 6.25 MG TAB PO SCH ×2 (09:23→21:04)
[2021-08-10] MEDS: Cefepime 2 GM in Sodium Chloride 0.9% 100 ML IVPB SCH ×2 (09:25→22:44)
[2021-08-10] MEDS ORDERED: Carvedilol 3.125 MG TAB PO SCH (09:45)
[2021-08-10] MEDS: Vancomycin 1 GM in Premix Bag 1 BAG IVPB SCH ×2 (10:09→21:05)
[2021-08-10] MEDS ORDERED: Enoxaparin Sodium 100 MG/ML SYRINGE SC SCH (21:00)
[2021-08-10] MEDS: Atorvastatin Calcium 40 MG TAB PO SCH (21:03)
[2021-08-10] MEDS: Enoxaparin Sodium 120 MG/0.8 ML SYRINGE SC SCH (21:04)
[2021-08-11 04:37] LABS: #Eosinphils 0.2 thou/uL (0.0-0.7); #Monocytes 0.6 thou/uL (0.11-0.59); #Neutrophils 3.8 thou/uL (1.40-6.50); %Basophils 0.5 % (0.0-1.0); %Eosinophils 4.2 % (0.0-10.0); %Lymphocytes 17.9 % (21.0-51.0); %Monocytes 10.2 % (0.0-10.0); %Neutrophils 67.2 % (42.0-75.0); Hemoglobin 10.6 g/dL (12.0-16.0); Mean Corpuscular HGB CONC 31.6 g/dL (32.0-36.0); Mean Corpuscular Hemoglobin 26.6 pg (27.0-31.0); Mean Corpuscular Volume 84.3 fL (78.0-98.0); Mean Platelet Volume 7.7 fL (7.4-10.4); Platelet Count 288 thou/uL (130-400); RBC Distribution Width 14.9 % (11.5-14.5); Red Blood Cell (RBC) Count 3.97 mill/uL (4.20-5.40); White Blood Cell (WBC) Count 5.6 thou/uL (4.8-10.8)
[2021-08-11 04:48] LABS: INR-International Normal Ratio 1.5
[2021-08-11 05:01] LABS: Anion Gap 11 mmol/L (10-20); BUN (Urea Nitrogen) 16 mg/dL (9.8-20.1); Calc. Creatinine Clearance 105 mL/min (70-130); Calcium 9.1 mg/dL (7.8-10.44); Carbon Dioxide 21 mmol/L (23-31); Chloride 107 mmol/L (98-107); Glucose 256 mg/dL (80-115); Potassium 3.7 mmol/L (3.5-5.1); Sodium 135 mmol/L (136-145)
[2021-08-11] MEDS: HumaLOG 300 UNITS/3 ML VIAL SC PRN ×2 (05:34→12:31)
[2021-08-11] MEDS: Cefepime 2 GM in Sodium Chloride 0.9% 100 ML IVPB SCH ×3 (09:38→23:40)
[2021-08-11] MEDS: Vancomycin 1 GM in Premix Bag 1 BAG IVPB SCH ×2 (10:16→21:00)
[2021-08-11] MEDS: Enoxaparin Sodium 120 MG/0.8 ML SYRINGE SC SCH ×2 (10:17→21:21)
[2021-08-11] MEDS: Carvedilol 6.25 MG TAB PO SCH ×2 (10:19→21:16)
[2021-08-11] MEDS: Sacubitril 49 MG/Valsartan 51 MG TABLET PO SCH ×2 (10:34→21:16)
[2021-08-11 17:55] LABS: Hemoglobin 10.8 g/dL (12.0-16.0); Platelet Count 288 thou/uL (130-400)
[2021-08-11 20:45] LABS: Vancomycin, Trough 24.2 ug/mL
[2021-08-11] MEDS: Atorvastatin Calcium 40 MG TAB PO SCH (21:16)
[2021-08-11] MEDS: VANCOMYCIN 1.75 GM/350 ML BAG 1.75 GM in Premix Bag 1 BAG IVPB SCH (21:20)
[2021-08-12 05:13] LABS: INR-International Normal Ratio 1.2; Prothrombin Time 15.8 sec (12.0-14.7)
[2021-08-12] MEDS: HumaLOG 300 UNITS/3 ML VIAL SC PRN ×3 (05:24→18:12)
[2021-08-12] MEDS: Carvedilol 6.25 MG TAB PO SCH ×2 (09:13→22:00)
[2021-08-12] MEDS: Enoxaparin Sodium 120 MG/0.8 ML SYRINGE SC SCH ×2 (09:18→22:01)
[2021-08-12] MEDS: Sacubitril 49 MG/Valsartan 51 MG TABLET PO SCH ×2 (09:19→22:01)
[2021-08-12] MEDS: Cefepime 2 GM in Sodium Chloride 0.9% 100 ML IVPB SCH (12:30)
[2021-08-12] MEDS: VANCOMYCIN 1.75 GM/350 ML BAG 1.75 GM in Premix Bag 1 BAG IVPB SCH (22:02)
[2021-08-12] MEDS: Atorvastatin Calcium 40 MG TAB PO SCH (22:41)
[2021-08-13] MEDS: Cefepime 2 GM in Sodium Chloride 0.9% 100 ML IVPB SCH ×3 (00:11→23:56)
[2021-08-13 05:06] LABS: INR-International Normal Ratio 1.2
[2021-08-13] MEDS: HumaLOG 300 UNITS/3 ML VIAL SC PRN ×3 (06:09→16:53)
[2021-08-13] MEDS: Enoxaparin Sodium 120 MG/0.8 ML SYRINGE SC SCH ×2 (09:51→21:37)
[2021-08-13] MEDS: Sacubitril 49 MG/Valsartan 51 MG TABLET PO SCH ×2 (09:52→21:36)
[2021-08-13] MEDS: Carvedilol 6.25 MG TAB PO SCH ×2 (09:56→21:36)
[2021-08-13 11:28] LABS: #Eosinphils 0.2 thou/uL (0.0-0.7); #Lymphocytes 1.1 thou/uL (1.20-3.40); #Monocytes 0.6 thou/uL (0.11-0.59); #Neutrophils 3.5 thou/uL (1.40-6.50); %Basophils 0.6 % (0.0-1.0); %Eosinophils 4.3 % (0.0-10.0); %Lymphocytes 19.9 % (21.0-51.0); %Monocytes 11.1 % (0.0-10.0); %Neutrophils 64.1 % (42.0-75.0); Hemoglobin 10.7 g/dL (12.0-16.0); Mean Corpuscular HGB CONC 32.1 g/dL (32.0-36.0); Mean Corpuscular Hemoglobin 26.9 pg (27.0-31.0); Mean Corpuscular Volume 83.8 fL (78.0-98.0); Mean Platelet Volume 7.9 fL (7.4-10.4); Platelet Count 280 thou/uL (130-400); RBC Distribution Width 15.1 % (11.5-14.5); Red Blood Cell (RBC) Count 3.98 mill/uL (4.20-5.40); White Blood Cell (WBC) Count 5.4 thou/uL (4.8-10.8)
[2021-08-13 11:49] LABS: Anion Gap 8 mmol/L (10-20); BUN (Urea Nitrogen) 18 mg/dL (9.8-20.1); Calc. Creatinine Clearance 93 mL/min (70-130); Calcium 9.1 mg/dL (7.8-10.44); Carbon Dioxide 23 mmol/L (23-31); Chloride 109 mmol/L (98-107); Glucose 262 mg/dL (80-115); Magnesium 1.6 mg/dL (1.6-2.6); Phosphorus 3.4 mg/dL (2.3-4.7); Potassium 3.9 mmol/L (3.5-5.1); Sodium 136 mmol/L (136-145)
[2021-08-13 18:41] LABS: Hemoglobin 11.2 g/dL (12.0-16.0); Platelet Count 310 thou/uL (130-400)
[2021-08-13] MEDS: VANCOMYCIN 1.75 GM/350 ML BAG 1.75 GM in Premix Bag 1 BAG IVPB SCH (21:39)
[2021-08-14] MEDS: Atorvastatin Calcium 40 MG TAB PO SCH ×2 (00:38→21:07)
[2021-08-14] MEDS: Carvedilol 6.25 MG TAB PO SCH ×2 (05:39→21:07)
[2021-08-14] MEDS: Sacubitril 49 MG/Valsartan 51 MG TABLET PO SCH ×2 (08:13→21:07)
[2021-08-14] MEDS ORDERED: Verapamil 5 MG/2 ML VIAL ONE (08:28)
[2021-08-14] MEDS ORDERED: Heparin 10,000 UNITS/ 10 ML VIAL ONE ×2 (08:28→09:30)
[2021-08-14] MEDS ORDERED: Nitroglycerin 100MG/250ML BOT 250 ML ONE (08:28)
[2021-08-14] MEDS ORDERED: Midazolam HCl 2 mg/2 ml Vial ONE (08:31)
[2021-08-14] MEDS ORDERED: Fentanyl 100 MCG/2 ML VIAL ONE (08:31)
[2021-08-14 08:55] VITALS: BMI 36.8
[2021-08-14] MEDS ORDERED: Clopidogrel Bisulfate 300 MG TAB ONE (09:00)
[2021-08-14] MEDS ORDERED: Sodium Chloride 0.9% 1,000 ML IV SCH (10:00)
[2021-08-14] MEDS ORDERED: Iopamidol 370 76% 50 ML VIAL FS ONE (10:18)
[2021-08-14] MEDS ORDERED: Iopamidol 370 76% 100 ML VIAL ONE (10:18)
[2021-08-14] MEDS: Acetaminophen 325 MG TAB PO PRN (10:34)
[2021-08-14] MEDS: Cefepime 2 GM in Sodium Chloride 0.9% 100 ML IVPB SCH ×2 (11:08→22:49)
[2021-08-14] MEDS: HumaLOG 300 UNITS/3 ML VIAL SC PRN ×2 (11:25→16:45)
[2021-08-14] MEDS ORDERED: Aspirin Chewable 81 MG TAB PO SCH (16:00)
[2021-08-14] MEDS ORDERED: Aspirin 81 mg Enteric Coated Tablet PO SCH (16:00)
[2021-08-14] MEDS ORDERED: Enoxaparin Sodium 40 MG/0.4 ML SYRINGE SC SCH (20:30)
[2021-08-14] MEDS ORDERED: Enoxaparin Sodium 100 MG/ML SYRINGE SC SCH (21:00)
[2021-08-14] MEDS ORDERED: Enoxaparin Sodium 120 MG/0.8 ML SYRINGE SC SCH (21:00)
[2021-08-14] MEDS: VANCOMYCIN 1.25 GM/250 ML BAG 1.25 GM in Premix Bag 1 BAG IVPB SCH (21:07)
[2021-08-14 23:33] LABS: SARS-CoV-2 NAA Rapid Test Not Detected (NotDetected)
[2021-08-15 05:03] LABS: #Eosinphils 0.2 thou/uL (0.0-0.7); #Lymphocytes 1.1 thou/uL (1.20-3.40); #Monocytes 0.6 thou/uL (0.11-0.59); #Neutrophils 4.7 thou/uL (1.40-6.50); %Basophils 0.6 % (0.0-1.0); %Eosinophils 2.9 % (0.0-10.0); %Lymphocytes 16.9 % (21.0-51.0); %Monocytes 8.4 % (0.0-10.0); %Neutrophils 71.1 % (42.0-75.0); Hemoglobin 10.2 g/dL (12.0-16.0); Mean Corpuscular HGB CONC 31.3 g/dL (32.0-36.0); Mean Corpuscular Hemoglobin 26.6 pg (27.0-31.0); Mean Corpuscular Volume 85.1 fL (78.0-98.0); Platelet Count 280 thou/uL (130-400); Red Blood Cell (RBC) Count 3.82 mill/uL (4.20-5.40); White Blood Cell (WBC) Count 6.6 thou/uL (4.8-10.8)
[2021-08-15 05:19] LABS: ALT (SGPT) 18 U/L (8-55); AST (SGOT) 18 U/L (5-34); Albumin 3.1 g/dL (3.4-4.8); Alkaline Phosphatase 57 U/L (40-110); Anion Gap 10 mmol/L (10-20); BUN (Urea Nitrogen) 19 mg/dL (9.8-20.1); Bilirubin, Total 0.5 mg/dL (0.2-1.2); Calc. Creatinine Clearance 107 mL/min (70-130); Calcium 8.9 mg/dL (7.8-10.44); Carbon Dioxide 21 mmol/L (23-31); Chloride 110 mmol/L (98-107); Globulin 3.5 g/dL (2.4-3.5); Glucose 246 mg/dL (80-115); Protein, Total 6.6 g/dL (5.8-8.1); Sodium 137 mmol/L (136-145)
[2021-08-15] MEDS ORDERED: Loratadine 10 MG TAB PO PRN (06:52)
[2021-08-15] MEDS ORDERED: Loperamide HCl 2 MG CAP PO PRN (06:52)
[2021-08-15] MEDS ORDERED: GUAIFENESIN SF SOLN 200 MG/10 ML UDCUP PO PRN (06:52)
[2021-08-15] MEDS ORDERED: Hydrocerin (Eucerin) Cream 120 gm Jar TOP PRN (06:52)
[2021-08-15] MEDS ORDERED: Sodium Chloride 0.65% Nasal 44 ML BOT EA NARE PRN (06:52)
[2021-08-15] MEDS ORDERED: Ondansetron ODT 4 MG TAB PO PRN (06:52)
[2021-08-15] MEDS ORDERED: Benzonatate 100 MG CAP PO PRN (06:52)
[2021-08-15] MEDS ORDERED: Calcium Carbonate 500 MG ChewTAB PO PRN (06:52)
[2021-08-15] MEDS ORDERED: Bisacodyl 5 MG TAB PO PRN (06:52)
[2021-08-15] MEDS ORDERED: Zolpidem Tartrate 5 MG TAB PO PRN (06:52)
[2021-08-15] MEDS ORDERED: Artificial Tear Sol 15 ML BOT EA EYE PRN (06:52)
[2021-08-15] MEDS ORDERED: Senokot S 8.6-50 MG TAB PO PRN (06:52)
[2021-08-15] MEDS ORDERED: Cepastat Lozenges 1 LOZ PO PRN (06:52)
[2021-08-15] MEDS ORDERED: hydrALAZINE 20 MG/ML VIAL SLOW IVP PRN (06:52)
[2021-08-15] MEDS ORDERED: HYDROcodone/Acetaminophen 5/325 mg Tablet PO PRN (06:53)
[2021-08-15] MEDS: Carvedilol 6.25 MG TAB PO SCH ×2 (09:12→21:00)
[2021-08-15] MEDS: Sacubitril 49 MG/Valsartan 51 MG TABLET PO SCH ×2 (09:13→22:16)
[2021-08-15] MEDS ORDERED: Sodium Chloride 0.9% 100 ML ONE (11:21)
[2021-08-15] MEDS ORDERED: cefTRIAXone\\ROCEPHIN 1 GM VIAL ONE (11:21)
[2021-08-15] MEDS ORDERED: Ketamine 50 MG/ML (10ML VIAL) ONE (11:40)
[2021-08-15] MEDS ORDERED: Lidocaine 1% w/Epinephrine 1:100K 20 ML VIAL ONE (12:11)
[2021-08-15] MEDS ORDERED: Ondansetron PF 4 MG/2 ML Vial ONE (13:10)
[2021-08-15] MEDS ORDERED: Promethazine HCl 25 MG/ML VIAL IM PRN (13:20)
[2021-08-15] MEDS ORDERED: Promethazine HCl 25 MG/ML VIAL IVPB PRN (13:20)
[2021-08-15] MEDS ORDERED: Ondansetron HCl/PF 4 MG/2 ML Vial IVP PRN (13:20)
[2021-08-15] MEDS: Aspirin Chewable 81 MG TAB PO SCH (16:56)
[2021-08-15] MEDS: Clopidogrel Bisulfate 75 MG TAB PO SCH (16:57)
[2021-08-15] MEDS: cefTRIAXone\\ROCEPHIN 1 GM in Sodium Chloride 0.9% 100 ML IVPB SCH (16:57)
[2021-08-15 18:23] LABS: Hemoglobin 10.7 g/dL (12.0-16.0); Platelet Count 276 thou/uL (130-400)
[2021-08-15] MEDS: Atorvastatin Calcium 40 MG TAB PO SCH (22:15)
[2021-08-15] MEDS: VANCOMYCIN 1.25 GM/250 ML BAG 1.25 GM in Premix Bag 1 BAG IVPB SCH (22:15)
[2021-08-16] MEDS: Clopidogrel Bisulfate 75 MG TAB PO SCH (08:21)
[2021-08-16] MEDS: Carvedilol 6.25 MG TAB PO SCH ×3 (08:21→20:40)
[2021-08-16] MEDS: Sacubitril 49 MG/Valsartan 51 MG TABLET PO SCH ×2 (08:21→20:40)
[2021-08-16] MEDS: Aspirin Chewable 81 MG TAB PO SCH (08:21)
[2021-08-16] MEDS: Enoxaparin Sodium 100 MG/ML SYRINGE SC SCH ×2 (09:00→20:39)
[2021-08-16] MEDS: cefTRIAXone\\ROCEPHIN 1 GM in Sodium Chloride 0.9% 100 ML IVPB SCH (10:35)
[2021-08-16] MEDS: HumaLOG 300 UNITS/3 ML VIAL SC PRN ×2 (12:38→16:48)
[2021-08-16] MEDS: Warfarin Sodium 10 MG TAB PO SCH (16:48)
[2021-08-16] MEDS: Atorvastatin Calcium 40 MG TAB PO SCH (20:40)
[2021-08-16 21:46] LABS: Vancomycin, Trough 14.1 ug/mL
[2021-08-16] MEDS: VANCOMYCIN 1.25 GM/250 ML BAG 1.25 GM in Premix Bag 1 BAG IVPB SCH (22:52)
[2021-08-17 04:31] LABS: INR-International Normal Ratio 1.2; Prothrombin Time 14.9 sec (12.0-14.7)
[2021-08-17] MEDS: Enoxaparin Sodium 100 MG/ML SYRINGE SC SCH ×2 (09:08→20:34)
[2021-08-17] MEDS: Sacubitril 49 MG/Valsartan 51 MG TABLET PO SCH ×2 (09:09→20:34)
[2021-08-17] MEDS: Clopidogrel Bisulfate 75 MG TAB PO SCH (09:09)
[2021-08-17] MEDS: Carvedilol 6.25 MG TAB PO SCH ×2 (09:09→20:34)
[2021-08-17] MEDS: glipiZIDE 5 MG TAB PO SCH (09:09)
[2021-08-17] MEDS: Aspirin Chewable 81 MG TAB PO SCH (09:09)
[2021-08-17] MEDS: metFORMIN 500 MG TAB PO SCH ×2 (09:09→17:15)
[2021-08-17] MEDS: cefTRIAXone\\ROCEPHIN 1 GM in Sodium Chloride 0.9% 100 ML IVPB SCH (09:10)
[2021-08-17] MEDS ORDERED: Morphine 2 MG/ML VIAL SLOW IVP PRN (09:17)
[2021-08-17] MEDS ORDERED: Morphine 4 MG/ML VIAL SLOW IVP PRN (09:26)
[2021-08-17] MEDS: HumaLOG 300 UNITS/3 ML VIAL SC PRN (12:31)
[2021-08-17] MEDS ORDERED: Warfarin Sodium 5 MG TAB PO SCH (17:00)
[2021-08-17] MEDS: Atorvastatin Calcium 40 MG TAB PO SCH (20:33)
[2021-08-17] MEDS: Vancomycin HCl 1.25 GM in Sodium Chloride 0.9% 250 ML 250 ML IVPB SCH (22:11)
[2021-08-17] MEDS: VANCOMYCIN 1.25 GM/250 ML BAG 1.25 GM in Premix Bag 1 BAG IVPB SCH (23:07)
[2021-08-18 05:08] LABS: INR-International Normal Ratio 1.3; Prothrombin Time 15.9 sec (12.0-14.7)
[2021-08-18] MEDS: HumaLOG 300 UNITS/3 ML VIAL SC PRN ×3 (06:56→17:16)
[2021-08-18] MEDS: metFORMIN 500 MG TAB PO SCH ×2 (09:08→17:16)
[2021-08-18] MEDS: Carvedilol 6.25 MG TAB PO SCH ×2 (09:08→20:35)
[2021-08-18] MEDS: Clopidogrel Bisulfate 75 MG TAB PO SCH (09:08)
[2021-08-18] MEDS: Sacubitril 49 MG/Valsartan 51 MG TABLET PO SCH ×2 (09:10→20:35)
[2021-08-18] MEDS: glipiZIDE 5 MG TAB PO SCH (09:11)
[2021-08-18] MEDS: Enoxaparin Sodium 100 MG/ML SYRINGE SC SCH ×2 (09:11→20:36)
[2021-08-18] MEDS: cefTRIAXone\\ROCEPHIN 1 GM in Sodium Chloride 0.9% 100 ML IVPB SCH (11:30)
[2021-08-18] MEDS: Warfarin Sodium 10 MG TAB PO SCH (17:16)
[2021-08-18] MEDS: Atorvastatin Calcium 40 MG TAB PO SCH (20:36)
[2021-08-18] MEDS: Vancomycin HCl 1.25 GM in Sodium Chloride 0.9% 250 ML 250 ML IVPB SCH (22:08)
[2021-08-19 04:48] LABS: INR-International Normal Ratio 1.3; Prothrombin Time 15.9 sec (12.0-14.7)
[2021-08-19] MEDS: HumaLOG 300 UNITS/3 ML VIAL SC PRN (06:51)
[2021-08-19] MEDS: glipiZIDE 5 MG TAB PO SCH (08:57)
[2021-08-19] MEDS: Clopidogrel Bisulfate 75 MG TAB PO SCH (08:58)
[2021-08-19] MEDS: Enoxaparin Sodium 100 MG/ML SYRINGE SC SCH (08:58)
[2021-08-19] MEDS: metFORMIN 500 MG TAB PO SCH (08:58)
[2021-08-19] MEDS: Sacubitril 49 MG/Valsartan 51 MG TABLET PO SCH (09:00)
[2021-08-19] MEDS: cefTRIAXone\\ROCEPHIN 1 GM in Sodium Chloride 0.9% 100 ML IVPB SCH (09:01)
[2021-08-19] MEDS: Carvedilol 6.25 MG TAB PO SCH (09:01)
[2021-08-19 11:24] VITALS: BP 129/70; TEMP 98.3
[2021-08-19] MEDS ORDERED: Warfarin Sodium 7.5 MG TAB PO SCH (17:00)
== END 2021-08-19 13:30 | DRG 616 ==
LOC: ERS 19:54 → EEVIPCON 19:54 → 2SW 08-06 01:45 → 2NO 08-09 14:18
PROVIDERS: ADMIT Student in an Organized Health Care Education/Training Program; ATTEND Internal Medicine
PROC: 027034Z Dilation of Coronary Artery, One Artery with Drug-eluting Intraluminal Device, Percutaneous Approach (ICD-10-PCS; 2021-08-14)
PROC: 4A023N7 Measurement of Cardiac Sampling and Pressure, Left Heart, Percutaneous Approach (ICD-10-PCS; 2021-08-14)
PROC: B2111ZZ Fluoroscopy of Multiple Coronary Arteries using Low Osmolar Contrast (ICD-10-PCS; 2021-08-14)
PROC: 0Y6R0Z3 Detachment at Right 2nd Toe, Low, Open Approach (ICD-10-PCS; principal; 2021-08-15)
PROC: 0QBN0ZZ Excision of Right Metatarsal, Open Approach (ICD-10-PCS; 2021-08-15)
DX: E11.69 Type 2 diabetes mellitus with other specified complication (principal); I50.23 Acute on chronic systolic (congestive) heart failure; M84.477A Pathological fracture, right toe(s), initial encounter for fracture; D68.51 Activated protein C resistance; E87.1 Hypo-osmolality and hyponatremia; M00.871 Arthritis due to other bacteria, right ankle and foot; M86.671 Other chronic osteomyelitis, right ankle and foot; I47.1 Supraventricular tachycardia; Z20.822 Contact with and (suspected) exposure to COVID-19; D64.9 Anemia, unspecified; E11.621 Type 2 diabetes mellitus with foot ulcer; L97.519 Non-pressure chronic ulcer of other part of right foot with unspecified severity; Z96.643 Presence of artificial hip joint, bilateral; I08.1 Rheumatic disorders of both mitral and tricuspid valves; E11.40 Type 2 diabetes mellitus with diabetic neuropathy, unspecified; E11.51 Type 2 diabetes mellitus with diabetic peripheral angiopathy without gangrene; I70.238 Atherosclerosis of native arteries of right leg with ulceration of other part of lower leg; I82.411 Acute embolism and thrombosis of right femoral vein; I82.431 Acute embolism and thrombosis of right popliteal vein; L03.031 Cellulitis of right toe; E66.01 Morbid (severe) obesity due to excess calories; M25.774 Osteophyte, right foot; I25.5 Ischemic cardiomyopathy; I11.0 Hypertensive heart disease with heart failure; I25.10 Atherosclerotic heart disease of native coronary artery without angina pectoris; F32.A Depression, unspecified; B95.2 Enterococcus as the cause of diseases classified elsewhere; Z89.412 Acquired absence of left great toe; Z91.14 Patient's other noncompliance with medication regimen; Z88.6 Allergy status to analgesic agent; Z91.018 Allergy to other foods; Z79.899 Other long term (current) drug therapy; Z79.01 Long term (current) use of anticoagulants; Z86.718 Personal history of other venous thrombosis and embolism; Z86.711 Personal history of pulmonary embolism; Z82.49 Family history of ischemic heart disease and other diseases of the circulatory system; Z80.1 Family history of malignant neoplasm of trachea, bronchus and lung; Z79.4 Long term (current) use of insulin; Z68.37 Body mass index [BMI] 37.0-37.9, adult; Z95.828 Presence of other vascular implants and grafts
CPT/HCPCS: 36415; 36416; 71045; 78452; 80048; 80053; 80202; 81003; 81015; 82550; 82565; 83036; 83605; 83735; 83880; 84100; 84484; 84520; 85014; 85018; 85025; 85049; 85347; 85610; 85652; 85730; 86140; 87040; 87070; 87077; 87086; 87186; 87205; 88305; 88311; 92928; 93005; 93010; 93017; 93306; 93458; 93923; 96374; 96375; 97139; 99152; 99153; A9500; A9579; C1769; C1874; C9600; J0153; J0692; J0696; J1644; J1650; J1815; J1940; J2250; J2405; J3010; J3370; J3475; J3490; J7050; Q9967; U0002

== ENCOUNTER 2022-01-21 13:07 | Outpatient (CLI) | payer MEDICARE, BC | END 2022-01-21 13:08 | disposition home or self-care (01) | LOC: BICULT 13:07 | PROVIDERS: ATTEND Family Medicine | DX: I82.401 Acute embolism and thrombosis of unspecified deep veins of right lower extremity (principal); Z86.2 Personal history of diseases of the blood and blood-forming organs and certain disorders involving the immune mechanism | CPT/HCPCS: 93970 ==

== ENCOUNTER 2022-03-05 20:14 | Inpatient (IN) | payer MEDICARE, BC ==
[~2022-03-05 20:14] MED LIST: Heparin 1,000 UNITS/ML VIAL ONE
[2022-03-05] MEDS ORDERED: Cefepime 2 GM VIAL ONE (21:04)
[2022-03-05 21:24] LABS: Hemoglobin 10.5 g/dL (12.0-16.0); Mean Corpuscular HGB CONC 31.5 g/dL (32.0-36.0); Mean Corpuscular Hemoglobin 22.8 pg (27.0-31.0); Mean Corpuscular Volume 72.2 fL (78.0-98.0); Platelet Count 176 thou/uL (130-400); Red Blood Cell (RBC) Count 4.62 mill/uL (4.20-5.40); White Blood Cell (WBC) Count 7.7 thou/uL (4.8-10.8)
[2022-03-05 21:26] LABS: #Eosinphils 0.1 thou/uL (0.0-0.7); #Lymphocytes 0.5 thou/uL (1.20-3.40); #Monocytes 0.8 thou/uL (0.11-0.59); #Neutrophils 6.3 thou/uL (1.40-6.50); %Basophils 0.1 % (0.0-1.0); %Eosinophils 1.1 % (0.0-10.0); %Monocytes 9.7 % (0.0-10.0); Anisocytosis SLIGHT = 6-15 cells (100X) (0-5/hpf); Hypochromia SLIGHT = 6-15 cells (100X) (0-5/hpf); MDiff Complete? YES; Microcytosis SLIGHT = 6-15 cells (100X) (0-5/hpf); Target Cells SLIGHT = 2-5 cells (100X) (0-1/hpf)
[2022-03-05] MEDS ORDERED: Vancomycin 1 GM/200 ML BAG ONE (21:48)
[2022-03-05 22:51] LABS: ALT (SGPT) 12 U/L (8-55); AST (SGOT) 19 U/L (5-34); Albumin 2.6 g/dL (3.4-4.8); Alkaline Phosphatase 82 U/L (40-110); Anion Gap 14 mmol/L (10-20); BUN (Urea Nitrogen) 19 mg/dL (9.8-20.1); Bilirubin, Total 1.4 mg/dL (0.2-1.2); Calc. Creatinine Clearance 0 mL/min (70-130); Calcium 8.2 mg/dL (7.8-10.44); Carbon Dioxide 22 mmol/L (23-31); Chloride 106 mmol/L (98-107); Globulin 3.9 g/dL (2.4-3.5); Glucose 198 mg/dL (80-115); Potassium 3.8 mmol/L (3.5-5.1); Protein, Total 6.5 g/dL (5.8-8.1); Sodium 138 mmol/L (136-145)
[2022-03-05] MEDS ORDERED: Dextrose 5% in Water 1,000 ML IV PRN (23:44)
[2022-03-05] MEDS ORDERED: Ondansetron PF 4 MG/2 ML Vial IVP PRN (23:44)
[2022-03-05] MEDS ORDERED: Dextrose 50% Abboject 50 ML SYRINGE SLOW IVP PRN (23:44)
[2022-03-05] MEDS ORDERED: Insulin Regular 300 UNITS/3 ML VIAL SC PRN ×2 (23:44)
[2022-03-05] MEDS ORDERED: Zolpidem Tartrate 5 MG TAB PO PRN (23:44)
[2022-03-05] MEDS ORDERED: Bisacodyl 5 MG TAB PO PRN (23:44)
[2022-03-05] MEDS ORDERED: hydrALAZINE 20 MG/ML VIAL SLOW IVP PRN (23:49)
[2022-03-06] MEDS ORDERED: Furosemide 40 MG/4 ML VIAL SLOW IVP SCH (00:15)
[2022-03-06] MEDS ORDERED: Vancomycin 1 GM in Premix Bag 1 BAG IVPB SCH (02:00)
[2022-03-06] MEDS: Furosemide 40 MG/4 ML VIAL SLOW IVP SCH ×2 (05:21→14:07)
[2022-03-06 06:25] LABS: INR-International Normal Ratio 1.5; Prothrombin Time 18.2 sec (12.0-14.7)
[2022-03-06 06:53] LABS: #Eosinphils 0.1 thou/uL (0.0-0.7); #Lymphocytes 0.6 thou/uL (1.20-3.40); #Monocytes 0.7 thou/uL (0.11-0.59); #Neutrophils 5.2 thou/uL (1.40-6.50); %Basophils 0.2 % (0.0-1.0); %Eosinophils 2.1 % (0.0-10.0); %Lymphocytes 8.6 % (21.0-51.0); %Monocytes 10.5 % (0.0-10.0); %Neutrophils 78.6 % (42.0-75.0); Anisocytosis SLIGHT = 6-15 cells (100X) (0-5/hpf); Hemoglobin 10.4 g/dL (12.0-16.0); Hypochromia SLIGHT = 6-15 cells (100X) (0-5/hpf); MDiff Complete? YES; Mean Corpuscular HGB CONC 30.5 g/dL (32.0-36.0); Mean Corpuscular Hemoglobin 22.4 pg (27.0-31.0); Mean Corpuscular Volume 73.6 fL (78.0-98.0); Mean Platelet Volume 5.8 fL (7.4-10.4); Microcytosis SLIGHT = 6-15 cells (100X) (0-5/hpf); Platelet Count 175 thou/uL (130-400); RBC Distribution Width 20.3 % (11.5-14.5); Red Blood Cell (RBC) Count 4.63 mill/uL (4.20-5.40); Target Cells SLIGHT = 2-5 cells (100X) (0-1/hpf); White Blood Cell (WBC) Count 6.7 thou/uL (4.8-10.8)
[2022-03-06 06:54] LABS: ALT (SGPT) 11 U/L (8-55); AST (SGOT) 15 U/L (5-34); Albumin 2.6 g/dL (3.4-4.8); Alkaline Phosphatase 78 U/L (40-110); Anion Gap 11 mmol/L (10-20); BUN (Urea Nitrogen) 18 mg/dL (9.8-20.1); Bilirubin, Total 1.3 mg/dL (0.2-1.2); Calc. Creatinine Clearance 103 mL/min (70-130); Calcium 8.2 mg/dL (7.8-10.44); Carbon Dioxide 25 mmol/L (23-31); Chloride 105 mmol/L (98-107); Globulin 3.8 g/dL (2.4-3.5); Glucose 217 mg/dL (80-115); Magnesium 1.5 mg/dL (1.6-2.6); Potassium 3.4 mmol/L (3.5-5.1); Protein, Total 6.4 g/dL (5.8-8.1); Sodium 138 mmol/L (136-145)
[2022-03-06] MEDS ORDERED: glipiZIDE 5 MG TAB PO SCH (07:30)
[2022-03-06] MEDS: Famotidine 20 MG TAB PO SCH ×2 (07:52→20:35)
[2022-03-06] MEDS: Metolazone 5 MG TAB PO SCH (07:52)
[2022-03-06] MEDS: metFORMIN 500 MG TAB PO SCH ×2 (07:52→17:05)
[2022-03-06] MEDS: Carvedilol 6.25 MG TAB PO SCH ×2 (07:52→20:35)
[2022-03-06] MEDS: Clopidogrel Bisulfate 75 MG TAB PO SCH (07:52)
[2022-03-06] MEDS: Cefepime 1 GM in Sodium Chloride 0.9% 100 ML IVPB SCH ×2 (08:46→20:34)
[2022-03-06] MEDS ORDERED: Enoxaparin Sodium 120 MG/0.8 ML SYRINGE SC SCH ×2 (09:00→21:00)
[2022-03-06] MEDS: Sacubitril 49 MG/Valsartan 51 MG TABLET PO SCH ×2 (09:08→20:36)
[2022-03-06] MEDS ORDERED: Warfarin Sodium 7.5 MG TAB PO SCH (17:00)
[2022-03-06] MEDS: Atorvastatin Calcium 40 MG TAB PO SCH (20:35)
[2022-03-06] MEDS: metroNIDAZOLE 500 MG TAB PO SCH (20:36)
[2022-03-06] MEDS: Acetaminophen 325 MG TAB PO PRN (20:39)
[2022-03-06] MEDS: VANCOMYCIN 2 GRAM/500 ML BAG 2 GM in Premix Bag 1 BAG IVPB SCH (22:07)
[2022-03-07] MEDS: Furosemide 40 MG/4 ML VIAL SLOW IVP SCH ×2 (05:37→14:01)
[2022-03-07] MEDS: Carvedilol 6.25 MG TAB PO SCH ×2 (05:38→20:41)
[2022-03-07] MEDS ORDERED: Communication Order-Pharmacy FS SCH (07:00)
[2022-03-07 07:05] LABS: INR-International Normal Ratio 1.3; Prothrombin Time 16.8 sec (12.0-14.7)
[2022-03-07 08:21] LABS: #Eosinphils 0.2 thou/uL (0.0-0.7); #Lymphocytes 0.7 thou/uL (1.20-3.40); #Monocytes 0.7 thou/uL (0.11-0.59); #Neutrophils 5.2 thou/uL (1.40-6.50); %Basophils 0.2 % (0.0-1.0); %Lymphocytes 9.9 % (21.0-51.0); %Monocytes 10.6 % (0.0-10.0); %Neutrophils 76.4 % (42.0-75.0); Hemoglobin 10.6 g/dL (12.0-16.0); Mean Corpuscular HGB CONC 30.2 g/dL (32.0-36.0); Mean Corpuscular Hemoglobin 22.5 pg (27.0-31.0); Mean Corpuscular Volume 74.6 fL (78.0-98.0); Platelet Count 176 thou/uL (130-400); RBC Distribution Width 20.6 % (11.5-14.5); Red Blood Cell (RBC) Count 4.72 mill/uL (4.20-5.40); White Blood Cell (WBC) Count 6.8 thou/uL (4.8-10.8)
[2022-03-07 08:23] LABS: Anion Gap 13 mmol/L (10-20); BUN (Urea Nitrogen) 20 mg/dL (9.8-20.1); Calc. Creatinine Clearance 86 mL/min (70-130); Calcium 8.4 mg/dL (7.8-10.44); Carbon Dioxide 27 mmol/L (23-31); Chloride 101 mmol/L (98-107); Glucose 142 mg/dL (80-115); Potassium 3.4 mmol/L (3.5-5.1); Sodium 138 mmol/L (136-145)
[2022-03-07 09:11] LABS: Hypochromia SLIGHT = 6-15 cells (100X) (0-5/hpf); MDiff Complete? YES; Microcytosis SLIGHT = 6-15 cells (100X) (0-5/hpf); Ovalocytes SLIGHT = 2-5 cells (100X) (0-1/hpf); Platelet Morphology Comment Appears Adequate; Polychromasia SLIGHT = 2-3 cells (100X) (0-2/hpf); Schistocytes SLIGHT = 2-5 cells (100X) (0-1/hpf); Target Cells SLIGHT = 2-5 cells (100X) (0-1/hpf)
[2022-03-07] MEDS ORDERED: Ropivacaine 0.5% HCl/PF (150 MG/30 ML VIAL) ONE (09:45)
[2022-03-07] MEDS ORDERED: Midazolam HCl 2 mg/2 ml Vial ONE (10:17)
[2022-03-07] MEDS ORDERED: Meperidine HCl/PF 25 MG/ML VIAL ONE (10:17)
[2022-03-07] MEDS: Clopidogrel Bisulfate 75 MG TAB PO SCH (10:17)
[2022-03-07] MEDS: Famotidine 20 MG TAB PO SCH ×2 (10:18→20:40)
[2022-03-07] MEDS: Metolazone 5 MG TAB PO SCH (10:18)
[2022-03-07] MEDS ORDERED: PROPOFOL 20 ML ONE (10:34)
[2022-03-07] MEDS: Sodium Chloride 0.9% 1,000 ML IV SCH ×2 (10:48→16:22)
[2022-03-07] MEDS: metroNIDAZOLE 500 MG TAB PO SCH ×2 (10:49→20:40)
[2022-03-07] MEDS: Sacubitril 49 MG/Valsartan 51 MG TABLET PO SCH ×2 (10:49→20:40)
[2022-03-07] MEDS: Cefepime 1 GM in Sodium Chloride 0.9% 100 ML IVPB SCH ×2 (10:53→20:41)
[2022-03-07] MEDS ORDERED: Fentanyl 100 MCG/2 ML VIAL ONE ×2 (12:19→12:33)
[2022-03-07] MEDS ORDERED: Promethazine HCl 25 MG/ML VIAL IVPB PRN (12:52)
[2022-03-07] MEDS ORDERED: Promethazine HCl 25 MG/ML VIAL IM PRN (12:52)
[2022-03-07] MEDS ORDERED: Ondansetron HCl/PF 4 MG/2 ML Vial IVP PRN (12:52)
[2022-03-07] MEDS: Magnesium 2 GM/50 ML(in water) 2 GM in Premix Bag 1 BAG IVPB SCH ×3 (13:01→17:33)
[2022-03-07] MEDS: Potassium Chloride 20 MEQ in Premix Bag 1 BAG IVPB SCH ×2 (13:43→20:38)
[2022-03-07] MEDS: Morphine 2 MG/ML VIAL SLOW IVP PRN ×2 (13:56→17:32)
[2022-03-07] MEDS: Acetaminophen 325 MG TAB PO PRN ×2 (15:22→20:42)
[2022-03-07] MEDS: Atorvastatin Calcium 40 MG TAB PO SCH (20:40)
[2022-03-07] MEDS ORDERED: Enoxaparin Sodium 120 MG/0.8 ML SYRINGE SC SCH (21:00)
[2022-03-07 21:26] LABS: Vancomycin, Trough 17.8 ug/mL
[2022-03-07] MEDS: VANCOMYCIN 2 GRAM/500 ML BAG 2 GM in Premix Bag 1 BAG IVPB SCH (22:42)
[2022-03-07] MEDS: HYDROcodone/Acetaminophen 5/325 mg Tablet PO PRN (22:52)
[2022-03-08] MEDS: Sodium Chloride 0.9% 1,000 ML IV SCH ×2 (01:25→06:01)
[2022-03-08] MEDS: Furosemide 40 MG/4 ML VIAL SLOW IVP SCH ×2 (05:08→17:08)
[2022-03-08] MEDS: Carvedilol 6.25 MG TAB PO SCH ×2 (06:01→20:51)
[2022-03-08 07:42] LABS: INR-International Normal Ratio 1.3; Prothrombin Time 16.7 sec (12.0-14.7)
[2022-03-08 07:56] LABS: Magnesium 1.8 mg/dL (1.6-2.6)
[2022-03-08] MEDS: Cefepime 1 GM in Sodium Chloride 0.9% 100 ML IVPB SCH ×2 (08:28→20:52)
[2022-03-08] MEDS: Acetaminophen 325 MG TAB PO PRN (08:28)
[2022-03-08] MEDS: metroNIDAZOLE 500 MG TAB PO SCH ×2 (08:28→20:51)
[2022-03-08] MEDS: Clopidogrel Bisulfate 75 MG TAB PO SCH (10:37)
[2022-03-08] MEDS: Metolazone 5 MG TAB PO SCH (10:37)
[2022-03-08] MEDS: Famotidine 20 MG TAB PO SCH ×2 (10:37→20:51)
[2022-03-08] MEDS: Sacubitril 49 MG/Valsartan 51 MG TABLET PO SCH ×2 (10:38→20:51)
[2022-03-08] MEDS ORDERED: Bivalirudin 250 MG VIAL ONE (16:24)
[2022-03-08] MEDS: Enoxaparin Sodium 120 MG/0.8 ML SYRINGE SC SCH (20:52)
[2022-03-08] MEDS: Atorvastatin Calcium 40 MG TAB PO SCH (20:52)
[2022-03-08] MEDS: VANCOMYCIN 2 GRAM/500 ML BAG 2 GM in Premix Bag 1 BAG IVPB SCH (22:09)
[2022-03-09] MEDS: Sodium Chloride 0.9% 1,000 ML IV SCH ×2 (00:11→19:16)
[2022-03-09] MEDS: Furosemide 40 MG/4 ML VIAL SLOW IVP SCH (05:36)
[2022-03-09 06:41] LABS: INR-International Normal Ratio 1.3; Prothrombin Time 16.5 sec (12.0-14.7)
[2022-03-09 08:38] LABS: Anion Gap 13 mmol/L (10-20); BUN (Urea Nitrogen) 19 mg/dL (9.8-20.1); Calc. Creatinine Clearance 105 mL/min (70-130); Calcium 8.2 mg/dL (7.8-10.44); Carbon Dioxide 28 mmol/L (23-31); Chloride 99 mmol/L (98-107); Glucose 206 mg/dL (80-115); Magnesium 1.4 mg/dL (1.6-2.6); Potassium 3.4 mmol/L (3.5-5.1); Sodium 137 mmol/L (136-145)
[2022-03-09 08:40] LABS: #Eosinphils 0.1 thou/uL (0.0-0.7); #Lymphocytes 0.7 thou/uL (1.20-3.40); #Monocytes 0.7 thou/uL (0.11-0.59); #Neutrophils 4.3 thou/uL (1.40-6.50); %Basophils 0.3 % (0.0-1.0); %Eosinophils 2.3 % (0.0-10.0); %Lymphocytes 11.8 % (21.0-51.0); %Monocytes 12.6 % (0.0-10.0); Hemoglobin 11.1 g/dL (12.0-16.0); Hypochromia SLIGHT = 6-15 cells (100X) (0-5/hpf); MDiff Complete? YES; Mean Corpuscular HGB CONC 29.7 g/dL (32.0-36.0); Mean Corpuscular Hemoglobin 22.1 pg (27.0-31.0); Mean Corpuscular Volume 74.4 fL (78.0-98.0); Mean Platelet Volume 10.9 fL (7.4-10.4); Microcytosis SLIGHT = 6-15 cells (100X) (0-5/hpf); Platelet Count 200 thou/uL (130-400); Platelet Morphology Comment Appears Adequate; Polychromasia SLIGHT = 2-3 cells (100X) (0-2/hpf); RBC Distribution Width 20.2 % (11.5-14.5); Red Blood Cell (RBC) Count 5.04 mill/uL (4.20-5.40); Target Cells SLIGHT = 2-5 cells (100X) (0-1/hpf); White Blood Cell (WBC) Count 5.8 thou/uL (4.8-10.8)
[2022-03-09] MEDS: Famotidine 20 MG TAB PO SCH (09:54)
[2022-03-09] MEDS: Sacubitril 49 MG/Valsartan 51 MG TABLET PO SCH ×2 (09:54→20:26)
[2022-03-09] MEDS: Enoxaparin Sodium 120 MG/0.8 ML SYRINGE SC SCH ×2 (09:55→20:27)
[2022-03-09] MEDS: metroNIDAZOLE 500 MG TAB PO SCH ×2 (09:55→20:18)
[2022-03-09] MEDS: Clopidogrel Bisulfate 75 MG TAB PO SCH (09:55)
[2022-03-09] MEDS: Cefepime 1 GM in Sodium Chloride 0.9% 100 ML IVPB SCH ×2 (09:56→20:18)
[2022-03-09] MEDS: Carvedilol 6.25 MG TAB PO SCH ×2 (09:56→20:17)
[2022-03-09] MEDS: Metolazone 5 MG TAB PO SCH (09:58)
[2022-03-09] MEDS ORDERED: Electrolyte Replacement Protocol 1 EACH FS SCH (12:00)
[2022-03-09] MEDS ORDERED: Potassium Chloride 20 MEQ TAB PO SCH (12:00)
[2022-03-09] MEDS ORDERED: Magnesium 2 GM/50 ML(in water) 2 GM in Premix Bag 1 BAG IVPB SCH (12:00)
[2022-03-09] MEDS ORDERED: Electrolyte Replacement Protocol FS PRN (12:15)
[2022-03-09] MEDS: HumaLOG 300 UNITS/3 ML VIAL SC PRN ×3 (14:12→20:33)
[2022-03-09] MEDS: Atorvastatin Calcium 40 MG TAB PO SCH (20:18)
[2022-03-09 21:45] LABS: Vancomycin, Trough 19.4 ug/mL
[2022-03-09] MEDS: VANCOMYCIN 2 GRAM/500 ML BAG 2 GM in Premix Bag 1 BAG IVPB SCH (22:39)
[2022-03-10] MEDS: HumaLOG 300 UNITS/3 ML VIAL SC PRN ×4 (06:10→20:22)
[2022-03-10 08:07] LABS: Anion Gap 14 mmol/L (10-20); BUN (Urea Nitrogen) 22 mg/dL (9.8-20.1); Calc. Creatinine Clearance 100 mL/min (70-130); Calcium 8.6 mg/dL (7.8-10.44); Carbon Dioxide 27 mmol/L (23-31); Chloride 101 mmol/L (98-107); Glucose 189 mg/dL (80-115); Magnesium 1.7 mg/dL (1.6-2.6); Potassium 3.6 mmol/L (3.5-5.1); Sodium 138 mmol/L (136-145)
[2022-03-10] MEDS ORDERED: Magnesium 2 GM/50 ML(in water) 2 GM in Premix Bag 1 BAG IVPB SCH (09:00)
[2022-03-10] MEDS: Clopidogrel Bisulfate 75 MG TAB PO SCH (09:01)
[2022-03-10] MEDS: Furosemide 40 MG TAB PO SCH (09:01)
[2022-03-10] MEDS: Sacubitril 49 MG/Valsartan 51 MG TABLET PO SCH ×2 (09:01→20:21)
[2022-03-10] MEDS: Carvedilol 6.25 MG TAB PO SCH ×2 (09:01→20:21)
[2022-03-10] MEDS: Cefepime 1 GM in Sodium Chloride 0.9% 100 ML IVPB SCH ×2 (09:01→20:22)
[2022-03-10] MEDS: metroNIDAZOLE 500 MG TAB PO SCH ×2 (09:01→20:22)
[2022-03-10] MEDS: Enoxaparin Sodium 120 MG/0.8 ML SYRINGE SC SCH ×2 (09:02→20:19)
[2022-03-10 09:43] LABS: INR-International Normal Ratio 1.3; Prothrombin Time 16.7 sec (12.0-14.7)
[2022-03-10] MEDS ORDERED: Communication Order-Pharmacy FS SCH (13:45)
[2022-03-10] MEDS: diphenhydrAMINE 25 MG CAP PO SCH ×2 (14:54→20:21)
[2022-03-10] MEDS: prednisoLONE 10 MG ODT TAB PO SCH ×2 (14:54→20:21)
[2022-03-10] MEDS: Sodium Chloride 0.9% 1,000 ML IV SCH (19:08)
[2022-03-10] MEDS: Atorvastatin Calcium 40 MG TAB PO SCH (20:21)
[2022-03-10] MEDS ORDERED: Insulin Glargine 30 UNITS/0.3 ML VIAL SC SCH (21:00)
[2022-03-10] MEDS ORDERED: Famotidine 20 MG TAB PO SCH (21:00)
[2022-03-10] MEDS ORDERED: Montelukast Sodium 10 mg Tablet PO SCH (21:00)
[2022-03-10] MEDS: VANCOMYCIN 2 GRAM/500 ML BAG 2 GM in Premix Bag 1 BAG IVPB SCH (22:08)
[2022-03-11] MEDS: Sodium Chloride 0.9% 1,000 ML IV SCH ×2 (00:49→05:43)
[2022-03-11] MEDS: prednisoLONE 10 MG ODT TAB PO SCH ×2 (02:03→08:40)
[2022-03-11] MEDS: diphenhydrAMINE 25 MG CAP PO SCH ×2 (02:03→08:40)
[2022-03-11] MEDS ORDERED: Diazepam 5 MG TAB PO SCH (06:00)
[2022-03-11 06:39] LABS: Anion Gap 14 mmol/L (10-20); BUN (Urea Nitrogen) 27 mg/dL (9.8-20.1); Calc. Creatinine Clearance 97 mL/min (70-130); Calcium 8.5 mg/dL (7.8-10.44); Carbon Dioxide 26 mmol/L (23-31); Chloride 102 mmol/L (98-107); Glucose 202 mg/dL (80-115); Magnesium 1.9 mg/dL (1.6-2.6); Potassium 3.7 mmol/L (3.5-5.1); Sodium 138 mmol/L (136-145)
[2022-03-11] MEDS: Furosemide 40 MG TAB PO SCH (08:41)
[2022-03-11] MEDS: Sacubitril 49 MG/Valsartan 51 MG TABLET PO SCH ×2 (08:41→20:47)
[2022-03-11] MEDS: Carvedilol 6.25 MG TAB PO SCH ×2 (08:41→20:50)
[2022-03-11] MEDS: Clopidogrel Bisulfate 75 MG TAB PO SCH (08:41)
[2022-03-11] MEDS: metroNIDAZOLE 500 MG TAB PO SCH ×2 (08:42→20:50)
[2022-03-11] MEDS: Morphine 2 MG/ML VIAL SLOW IVP PRN ×2 (08:42→12:25)
[2022-03-11] MEDS: Cefepime 1 GM in Sodium Chloride 0.9% 100 ML IVPB SCH (08:54)
[2022-03-11] MEDS ORDERED: Magnesium 2 GM/50 ML(in water) 2 GM in Premix Bag 1 BAG IVPB SCH (11:30)
[2022-03-11] MEDS: HumaLOG 300 UNITS/3 ML VIAL SC PRN ×3 (12:25→20:52)
[2022-03-11] MEDS ORDERED: Artificial Tear Sol 15 ML BOT EA EYE PRN (16:20)
[2022-03-11] MEDS ORDERED: Warfarin Sodium 7.5 MG TAB PO SCH (17:00)
[2022-03-11] MEDS: Atorvastatin Calcium 40 MG TAB PO SCH (20:48)
[2022-03-11] MEDS: Insulin Glargine 30 UNITS/0.3 ML VIAL SC SCH (20:50)
[2022-03-11] MEDS: Enoxaparin Sodium 100 MG/ML SYRINGE SC SCH (20:50)
[2022-03-11 21:33] LABS: Vancomycin, Trough 23.5 ug/mL
[2022-03-11] MEDS: VANCOMYCIN 2 GRAM/500 ML BAG 2 GM in Premix Bag 1 BAG IVPB SCH (22:34)
[2022-03-11] MEDS: Vancomycin 1.5 GRAM/300 ML BAG 1.5 GM in Premix Bag 1 BAG IVPB SCH (23:02)
[2022-03-12] MEDS: Acetaminophen 650 MG/20.3 ML UDCUP PO PRN (03:20)
[2022-03-12] MEDS: HumaLOG 300 UNITS/3 ML VIAL SC PRN (06:25)
[2022-03-12] MEDS ORDERED: Morphine 2 MG/ML VIAL SLOW IVP SCH (07:00)
[2022-03-12 08:15] LABS: Magnesium 1.8 mg/dL (1.6-2.6)
[2022-03-12 08:24] LABS: INR-International Normal Ratio 1.5; Prothrombin Time 18.4 sec (12.0-14.7)
[2022-03-12] MEDS: Clopidogrel Bisulfate 75 MG TAB PO SCH (09:05)
[2022-03-12] MEDS: Enoxaparin Sodium 100 MG/ML SYRINGE SC SCH ×2 (09:05→15:09)
[2022-03-12] MEDS: Furosemide 40 MG TAB PO SCH (09:05)
[2022-03-12] MEDS: metroNIDAZOLE 500 MG TAB PO SCH ×2 (09:05→21:32)
[2022-03-12] MEDS: Carvedilol 6.25 MG TAB PO SCH (09:07)
[2022-03-12] MEDS: Sacubitril 49 MG/Valsartan 51 MG TABLET PO SCH (09:07)
[2022-03-12] MEDS: HYDROcodone/Acetaminophen 5/325 mg Tablet PO PRN ×2 (09:15→21:32)
[2022-03-12] MEDS ORDERED: Morphine 2 MG/ML VIAL SLOW IVP PRN (11:00)
[2022-03-12] MEDS ORDERED: Magnesium 2 GM/50 ML(in water) 2 GM in Premix Bag 1 BAG IVPB SCH (12:00)
[2022-03-12] MEDS ORDERED: Sodium Chloride 0.9% 1,000 ML IV SCH (14:00)
[2022-03-12] MEDS ORDERED: Albumin 25% 25 GM/100 ML BOT IVPB SCH (15:00)
[2022-03-12] MEDS ORDERED: Albumin 25% 100 ML ONE (15:12)
[2022-03-12 15:37] LABS: #Eosinphils 0.1 thou/uL (0.0-0.7); #Lymphocytes 0.6 thou/uL (1.20-3.40); #Monocytes 0.7 thou/uL (0.11-0.59); #Neutrophils 6.3 thou/uL (1.40-6.50); %Basophils 0.1 % (0.0-1.0); %Eosinophils 0.7 % (0.0-10.0); %Lymphocytes 7.6 % (21.0-51.0); %Monocytes 9.4 % (0.0-10.0); %Neutrophils 82.3 % (42.0-75.0); Hemoglobin 7.6 g/dL (12.0-16.0); Mean Corpuscular HGB CONC 29.6 g/dL (32.0-36.0); Mean Corpuscular Hemoglobin 22.1 pg (27.0-31.0); Mean Corpuscular Volume 74.9 fL (78.0-98.0); Mean Platelet Volume 10.2 fL (7.4-10.4); Platelet Count 283 thou/uL (130-400); RBC Distribution Width 20.5 % (11.5-14.5); Red Blood Cell (RBC) Count 3.42 mill/uL (4.20-5.40); White Blood Cell (WBC) Count 7.7 thou/uL (4.8-10.8)
[2022-03-12 15:48] LABS: INR-International Normal Ratio 1.6; Prothrombin Time 19.6 sec (12.0-14.7)
[2022-03-12 15:49] LABS: PTT 43.9 sec (22.9-36.1)
[2022-03-12 15:56] LABS: Anion Gap 12 mmol/L (10-20); BUN (Urea Nitrogen) 28 mg/dL (9.8-20.1); Calc. Creatinine Clearance 105 mL/min (70-130); Calcium 7.6 mg/dL (7.8-10.44); Carbon Dioxide 27 mmol/L (23-31); Chloride 103 mmol/L (98-107); Glucose 130 mg/dL (80-115); Potassium 3.7 mmol/L (3.5-5.1); Sodium 138 mmol/L (136-145)
[2022-03-12 16:09] LABS: Anisocytosis SLIGHT = 6-15 cells (100X) (0-5/hpf); Hypochromia SLIGHT = 6-15 cells (100X) (0-5/hpf); MDiff Complete? YES; Microcytosis SLIGHT = 6-15 cells (100X) (0-5/hpf); Platelet Morphology Comment Appears Adequate; Polychromasia SLIGHT = 2-3 cells (100X) (0-2/hpf); Target Cells SLIGHT = 2-5 cells (100X) (0-1/hpf)
[2022-03-12] MEDS ORDERED: Furosemide 20 MG/2 ML VIAL SLOW IVP SCH (16:45)
[2022-03-12] MEDS ORDERED: Warfarin Sodium 10 MG TAB PO SCH (17:00)
[2022-03-12 17:03] LABS: Lactic Acid 2.9 mmol/L (0.5-2.2)
[2022-03-12 17:09] LABS: ALT (SGPT) 10 U/L (8-55); AST (SGOT) 21 U/L (5-34); Albumin 1.9 g/dL (3.4-4.8); Alkaline Phosphatase 59 U/L (40-110); Anion Gap 11 mmol/L (10-20); BUN (Urea Nitrogen) 29 mg/dL (9.8-20.1); Bilirubin, Total 1.1 mg/dL (0.2-1.2); Calc. Creatinine Clearance 108 mL/min (70-130); Calcium 7.8 mg/dL (7.8-10.44); Carbon Dioxide 28 mmol/L (23-31); Chloride 103 mmol/L (98-107); Globulin 2.9 g/dL (2.4-3.5); Glucose 141 mg/dL (80-115); Potassium 3.7 mmol/L (3.5-5.1); Protein, Total 4.8 g/dL (5.8-8.1); Sodium 138 mmol/L (136-145)
[2022-03-12 19:43] LABS: Troponin I 0.014 ng/mL (< 0.028)
[2022-03-12] MEDS ORDERED: Phytonadione 10 MG/ML AMP SLOW IVP SCH (20:00)
[2022-03-12] MEDS ORDERED: HUM PROTHROMBIN CPLX(PCC)4FACT 1,000 UNIT, Human Prothrombin Complx(PCC) 500 UNIT in Ad... IV SCH (20:00)
[2022-03-12] MEDS: Atorvastatin Calcium 40 MG TAB PO SCH (21:32)
[2022-03-12] MEDS: Insulin Glargine 30 UNITS/0.3 ML VIAL SC SCH (21:37)
[2022-03-12 21:59] LABS: #Lymphocytes 0.6 thou/uL (1.20-3.40); #Monocytes 1.1 thou/uL (0.11-0.59); %Eosinophils 0.1 % (0.0-10.0); %Lymphocytes 5.5 % (21.0-51.0); %Neutrophils 84.4 % (42.0-75.0); Hemoglobin 8.9 g/dL (12.0-16.0); Mean Corpuscular Hemoglobin 25.5 pg (27.0-31.0); Mean Corpuscular Volume 82.3 fL (78.0-98.0); Mean Platelet Volume 9.4 fL (7.4-10.4); Platelet Count 287 thou/uL (130-400); RBC Distribution Width 21.9 % (11.5-14.5); Red Blood Cell (RBC) Count 3.49 mill/uL (4.20-5.40); White Blood Cell (WBC) Count 10.7 thou/uL (4.8-10.8)
[2022-03-12 22:05] LABS: INR-International Normal Ratio 1.3; Prothrombin Time 16.6 sec (12.0-14.7)
[2022-03-12 22:24] LABS: ALT (SGPT) 13 U/L (8-55); AST (SGOT) 32 U/L (5-34); Albumin 2.3 g/dL (3.4-4.8); Alkaline Phosphatase 65 U/L (40-110); Anion Gap 13 mmol/L (10-20); BUN (Urea Nitrogen) 32 mg/dL (9.8-20.1); Bilirubin, Total 2.1 mg/dL (0.2-1.2); Calc. Creatinine Clearance 91 mL/min (70-130); Calcium 7.9 mg/dL (7.8-10.44); Carbon Dioxide 28 mmol/L (23-31); Chloride 101 mmol/L (98-107); Glucose 183 mg/dL (80-115); Potassium 3.8 mmol/L (3.5-5.1); Protein, Total 5.3 g/dL (5.8-8.1); Sodium 138 mmol/L (136-145)
[2022-03-12 22:26] LABS: Troponin I 0.016 ng/mL (< 0.028)
[2022-03-13] MEDS: Vancomycin 1.5 GRAM/300 ML BAG 1.5 GM in Premix Bag 1 BAG IVPB SCH (00:26)
[2022-03-13 03:46] LABS: Anion Gap 13 mmol/L (10-20); BUN (Urea Nitrogen) 35 mg/dL (9.8-20.1); Calc. Creatinine Clearance 79 mL/min (70-130); Calcium 7.6 mg/dL (7.8-10.44); Carbon Dioxide 27 mmol/L (23-31); Chloride 103 mmol/L (98-107); Glucose 164 mg/dL (80-115); Potassium 3.9 mmol/L (3.5-5.1); Sodium 139 mmol/L (136-145)
[2022-03-13 04:25] LABS: INR-International Normal Ratio 1.4; PTT 38.5 sec (22.9-36.1); Prothrombin Time 17.2 sec (12.0-14.7)
[2022-03-13 04:30] LABS: Hemoglobin 8.7 g/dL (12.0-16.0); Mean Corpuscular HGB CONC 31.8 g/dL (32.0-36.0); Mean Corpuscular Hemoglobin 26.3 pg (27.0-31.0); Mean Corpuscular Volume 82.8 fL (78.0-98.0); Platelet Count 238 thou/uL (130-400); RBC Distribution Width 20.9 % (11.5-14.5); Red Blood Cell (RBC) Count 3.28 mill/uL (4.20-5.40); White Blood Cell (WBC) Count 9.6 thou/uL (4.8-10.8)
[2022-03-13 04:44] LABS: Anisocytosis SLIGHT = 6-15 cells (100X) (0-5/hpf); Band 3 % (5-11); Hypochromia SLIGHT = 6-15 cells (100X) (0-5/hpf); Lymphocytes 7 % (21-51); MDiff Complete? YES; Monocytes 6 % (0-10); Neutrophil 84 % (42-75); Nucleated RBC 3 % (0); Platelet Morphology Comment Appears Adequate; Polychromasia SLIGHT = 2-3 cells (100X) (0-2/hpf)
[2022-03-13] MEDS: metroNIDAZOLE 500 MG TAB PO SCH ×2 (09:27→21:20)
[2022-03-13] MEDS ORDERED: Dextrose 5%-Lactated Ringers 1,000 ML IV SCH (10:45)
[2022-03-13] MEDS: Morphine 2 MG/ML VIAL SLOW IVP PRN (11:37)
[2022-03-13 12:54] LABS: Hemoglobin 7.6 g/dL (12.0-16.0)
[2022-03-13 16:31] LABS: Hemoglobin 8.9 g/dL (12.0-16.0)
[2022-03-13] MEDS: Atorvastatin Calcium 40 MG TAB PO SCH (21:20)
[2022-03-13] MEDS: Insulin Glargine 30 UNITS/0.3 ML VIAL SC SCH (21:20)
[2022-03-13 22:55] LABS: Vancomycin, Trough 29.4 ug/mL
[2022-03-14] MEDS: Vancomycin 1.5 GRAM/300 ML BAG 1.5 GM in Premix Bag 1 BAG IVPB SCH (03:04)
[2022-03-14 04:20] LABS: #Lymphocytes 1.1 thou/uL (1.20-3.40); #Monocytes 1.1 thou/uL (0.11-0.59); #Neutrophils 6.3 thou/uL (1.40-6.50); %Basophils 0.1 % (0.0-1.0); %Eosinophils 0.2 % (0.0-10.0); %Lymphocytes 12.6 % (21.0-51.0); %Monocytes 12.8 % (0.0-10.0); %Neutrophils 74.3 % (42.0-75.0); Hemoglobin 8.6 g/dL (12.0-16.0); Mean Corpuscular HGB CONC 32.1 g/dL (32.0-36.0); Mean Corpuscular Hemoglobin 26.8 pg (27.0-31.0); Mean Corpuscular Volume 83.6 fL (78.0-98.0); Mean Platelet Volume 9.2 fL (7.4-10.4); Platelet Count 208 thou/uL (130-400); RBC Distribution Width 19.7 % (11.5-14.5); Red Blood Cell (RBC) Count 3.19 mill/uL (4.20-5.40); White Blood Cell (WBC) Count 8.5 thou/uL (4.8-10.8)
[2022-03-14 04:43] LABS: ALT (SGPT) 55 U/L (8-55); AST (SGOT) 142 U/L (5-34); Albumin 2.1 g/dL (3.4-4.8); Alkaline Phosphatase 90 U/L (40-110); Anion Gap 11 mmol/L (10-20); BUN (Urea Nitrogen) 40 mg/dL (9.8-20.1); Bilirubin, Total 1.4 mg/dL (0.2-1.2); Calc. Creatinine Clearance 69 mL/min (70-130); Calcium 7.7 mg/dL (7.8-10.44); Carbon Dioxide 28 mmol/L (23-31); Chloride 104 mmol/L (98-107); Glucose 138 mg/dL (80-115); Potassium 3.8 mmol/L (3.5-5.1); Protein, Total 5.1 g/dL (5.8-8.1); Sodium 139 mmol/L (136-145)
[2022-03-14] MEDS: Pantoprazole 40 MG VIAL IVP SCH (07:31)
[2022-03-14] MEDS: metroNIDAZOLE 500 MG TAB PO SCH ×2 (07:31→20:08)
[2022-03-14] MEDS: HYDROcodone/Acetaminophen 5/325 mg Tablet PO PRN (07:31)
[2022-03-14 10:25] LABS: Vancomycin, Random 24.5 ug/mL (See Comment)
[2022-03-14] MEDS: Atorvastatin Calcium 40 MG TAB PO SCH (20:08)
[2022-03-14] MEDS: Insulin Glargine 30 UNITS/0.3 ML VIAL SC SCH (20:08)
[2022-03-15] MEDS: Vancomycin 1 GM in Premix Bag 1 BAG IVPB SCH ×2 (00:09→23:46)
[2022-03-15 04:43] LABS: #Lymphocytes 0.8 thou/uL (1.20-3.40); #Monocytes 0.9 thou/uL (0.11-0.59); #Neutrophils 7.8 thou/uL (1.40-6.50); %Eosinophils 0.4 % (0.0-10.0); %Lymphocytes 8.4 % (21.0-51.0); %Monocytes 9.5 % (0.0-10.0); %Neutrophils 81.7 % (42.0-75.0); Hemoglobin 7.7 g/dL (12.0-16.0); Mean Corpuscular HGB CONC 31.6 g/dL (32.0-36.0); Mean Corpuscular Hemoglobin 26.8 pg (27.0-31.0); Mean Corpuscular Volume 84.7 fL (78.0-98.0); Mean Platelet Volume 9.1 fL (7.4-10.4); Platelet Count 209 thou/uL (130-400); RBC Distribution Width 20.4 % (11.5-14.5); Red Blood Cell (RBC) Count 2.87 mill/uL (4.20-5.40); White Blood Cell (WBC) Count 9.5 thou/uL (4.8-10.8)
[2022-03-15 05:06] LABS: Anion Gap 11 mmol/L (10-20); BUN (Urea Nitrogen) 37 mg/dL (9.8-20.1); Calc. Creatinine Clearance 85 mL/min (70-130); Calcium 7.6 mg/dL (7.8-10.44); Carbon Dioxide 28 mmol/L (23-31); Chloride 102 mmol/L (98-107); Glucose 178 mg/dL (80-115); Potassium 3.8 mmol/L (3.5-5.1); Sodium 137 mmol/L (136-145)
[2022-03-15] MEDS: Ascorbic Acid 500 mg Chewable Tablet PO SCH (08:12)
[2022-03-15] MEDS: metroNIDAZOLE 500 MG TAB PO SCH ×2 (08:12→21:16)
[2022-03-15] MEDS: Zinc Sulfate 220 MG CAP PO SCH (08:12)
[2022-03-15] MEDS: Pantoprazole 40 MG VIAL IVP SCH (08:12)
[2022-03-15] MEDS: Cholecalciferol 1,000 UNITS (25 MCG) TAB PO SCH (08:14)
[2022-03-15] MEDS: HYDROcodone/Acetaminophen 5/325 mg Tablet PO PRN (08:15)
[2022-03-15] MEDS ORDERED: Furosemide 20 MG/2 ML VIAL SLOW IVP SCH (11:00)
[2022-03-15] MEDS: Ipratropium Bromide 2.5 ml Neb NEB SCH ×2 (12:48→19:55)
[2022-03-15 13:17] LABS: INR-International Normal Ratio 1.1; Prothrombin Time 14.4 sec (12.0-14.7)
[2022-03-15 13:18] LABS: PTT 35.1 sec (22.9-36.1)
[2022-03-15] MEDS: Insulin Glargine 30 UNITS/0.3 ML VIAL SC SCH ×2 (20:30→21:15)
[2022-03-15] MEDS: NIRMATRELVIR 150 MG/RITONAVIR 100 MG TABLET PO SCH (21:17)
[2022-03-15 22:29] LABS: Vancomycin, Trough 17.6 ug/mL
[2022-03-15 22:32] LABS: ALT (SGPT) 32 U/L (8-55); AST (SGOT) 47 U/L (5-34); Albumin 2.2 g/dL (3.4-4.8); Alkaline Phosphatase 109 U/L (40-110); Anion Gap 10 mmol/L (10-20); BUN (Urea Nitrogen) 29 mg/dL (9.8-20.1); Bilirubin, Total 1.8 mg/dL (0.2-1.2); Calc. Creatinine Clearance 107 mL/min (70-130); Calcium 7.4 mg/dL (7.8-10.44); Carbon Dioxide 28 mmol/L (23-31); Chloride 102 mmol/L (98-107); Globulin 3.3 g/dL (2.4-3.5); Glucose 140 mg/dL (80-115); Potassium 3.4 mmol/L (3.5-5.1); Protein, Total 5.5 g/dL (5.8-8.1); Sodium 137 mmol/L (136-145)
[2022-03-15 22:33] LABS: #Eosinphils 0.1 thou/uL (0.0-0.7); #Lymphocytes 0.8 thou/uL (1.20-3.40); #Monocytes 0.8 thou/uL (0.11-0.59); #Neutrophils 6.7 thou/uL (1.40-6.50); %Basophils 0.1 % (0.0-1.0); %Eosinophils 0.7 % (0.0-10.0); %Lymphocytes 9.3 % (21.0-51.0); %Monocytes 9.6 % (0.0-10.0); %Neutrophils 80.3 % (42.0-75.0); Hemoglobin 9.7 g/dL (12.0-16.0); Mean Corpuscular HGB CONC 32.2 g/dL (32.0-36.0); Mean Corpuscular Hemoglobin 28.3 pg (27.0-31.0); Mean Corpuscular Volume 87.9 fL (78.0-98.0); Mean Platelet Volume 9.2 fL (7.4-10.4); Platelet Count 170 thou/uL (130-400); RBC Distribution Width 19.7 % (11.5-14.5); Red Blood Cell (RBC) Count 3.44 mill/uL (4.20-5.40); White Blood Cell (WBC) Count 8.4 thou/uL (4.8-10.8)
[2022-03-16] MEDS ORDERED: Potassium Chloride 40 MEQ in Premix Bag 1 BAG IVPB SCH (01:00)
[2022-03-16] MEDS: Acetaminophen 650 MG/20.3 ML UDCUP PO PRN (01:54)
[2022-03-16] MEDS: Morphine 2 MG/ML VIAL SLOW IVP PRN ×2 (04:07→10:05)
[2022-03-16 04:33] LABS: Anion Gap 9 mmol/L (10-20); BUN (Urea Nitrogen) 28 mg/dL (9.8-20.1); Calc. Creatinine Clearance 103 mL/min (70-130); Calcium 7.8 mg/dL (7.8-10.44); Carbon Dioxide 30 mmol/L (23-31); Chloride 102 mmol/L (98-107); Glucose 197 mg/dL (80-115); Potassium 4.2 mmol/L (3.5-5.1); Sodium 137 mmol/L (136-145)
[2022-03-16 05:05] LABS: #Lymphocytes 0.7 thou/uL (1.20-3.40); #Monocytes 0.8 thou/uL (0.11-0.59); #Neutrophils 7.9 thou/uL (1.40-6.50); %Basophils 0.3 % (0.0-1.0); %Eosinophils 0.5 % (0.0-10.0); %Lymphocytes 6.9 % (21.0-51.0); %Monocytes 8.9 % (0.0-10.0); %Neutrophils 83.4 % (42.0-75.0); Hemoglobin 9.8 g/dL (12.0-16.0); Mean Corpuscular HGB CONC 32.3 g/dL (32.0-36.0); Mean Corpuscular Hemoglobin 28.4 pg (27.0-31.0); Mean Platelet Volume 9.3 fL (7.4-10.4); Platelet Count 169 thou/uL (130-400); Red Blood Cell (RBC) Count 3.45 mill/uL (4.20-5.40); White Blood Cell (WBC) Count 9.5 thou/uL (4.8-10.8)
[2022-03-16] MEDS: Ipratropium Bromide 2.5 ml Neb NEB SCH ×3 (07:35→21:50)
[2022-03-16] MEDS: HumaLOG 300 UNITS/3 ML VIAL SC PRN (08:32)
[2022-03-16] MEDS: Ascorbic Acid 500 mg Chewable Tablet PO SCH (10:06)
[2022-03-16] MEDS: Zinc Sulfate 220 MG CAP PO SCH (10:06)
[2022-03-16] MEDS: metroNIDAZOLE 500 MG TAB PO SCH ×2 (10:06→20:37)
[2022-03-16] MEDS: Pantoprazole 40 MG VIAL IVP SCH (10:06)
[2022-03-16] MEDS: NIRMATRELVIR 150 MG/RITONAVIR 100 MG TABLET PO SCH ×2 (10:08→20:38)
[2022-03-16] MEDS: Cholecalciferol 1,000 UNITS (25 MCG) TAB PO SCH (10:13)
[2022-03-16] MEDS: Insulin Glargine 30 UNITS/0.3 ML VIAL SC SCH (20:43)
[2022-03-16] MEDS: Vancomycin 1 GM in Premix Bag 1 BAG IVPB SCH (23:52)
[2022-03-17] MEDS: Morphine 2 MG/ML VIAL SLOW IVP PRN ×2 (03:56→20:22)
[2022-03-17] MEDS: Zinc Sulfate 220 MG CAP PO SCH (09:51)
[2022-03-17] MEDS: metroNIDAZOLE 500 MG TAB PO SCH ×2 (09:51→20:21)
[2022-03-17] MEDS: Cholecalciferol 1,000 UNITS (25 MCG) TAB PO SCH (09:51)
[2022-03-17] MEDS: Pantoprazole 40 MG VIAL IVP SCH (09:51)
[2022-03-17] MEDS: Ascorbic Acid 500 mg Chewable Tablet PO SCH (09:51)
[2022-03-17] MEDS: NIRMATRELVIR 150 MG/RITONAVIR 100 MG TABLET PO SCH ×2 (09:51→20:19)
[2022-03-17] MEDS: Ipratropium Oral Inhaler INH SCH ×3 (09:52→20:59)
[2022-03-17] MEDS ORDERED: Acetylcysteine 20% 200 MG/ML 30 ML VIAL INH SCH (10:45)
[2022-03-17] MEDS ORDERED: guaiFENesin ER 600 MG TAB PO SCH (11:00)
[2022-03-17] MEDS ORDERED: Albuterol 200 PUFF (6.7GM INHALER) INH SCH (11:00)
[2022-03-17] MEDS: guaiFENesin ER 600 MG TAB PO SCH (20:21)
[2022-03-17] MEDS: Insulin Glargine 30 UNITS/0.3 ML VIAL SC SCH (20:59)
[2022-03-17 22:07] LABS: Vancomycin, Trough 13.9 ug/mL
[2022-03-17] MEDS: Vancomycin 1 GM in Premix Bag 1 BAG IVPB SCH (22:56)
[2022-03-18] MEDS: Morphine 2 MG/ML VIAL SLOW IVP PRN ×3 (01:28→20:31)
[2022-03-18] MEDS: Ipratropium Oral Inhaler INH SCH ×2 (08:30→15:15)
[2022-03-18] MEDS: Cholecalciferol 1,000 UNITS (25 MCG) TAB PO SCH (09:42)
[2022-03-18] MEDS: Ascorbic Acid 500 mg Chewable Tablet PO SCH (09:42)
[2022-03-18] MEDS: Zinc Sulfate 220 MG CAP PO SCH (09:43)
[2022-03-18] MEDS: guaiFENesin ER 600 MG TAB PO SCH ×2 (09:43→20:25)
[2022-03-18] MEDS: metroNIDAZOLE 500 MG TAB PO SCH ×2 (09:43→20:25)
[2022-03-18] MEDS: Pantoprazole 40 MG VIAL IVP SCH (09:43)
[2022-03-18] MEDS: NIRMATRELVIR 150 MG/RITONAVIR 100 MG TABLET PO SCH ×2 (09:58→20:25)
[2022-03-18 12:34] LABS: #Eosinphils 0.1 thou/uL (0.0-0.7); #Lymphocytes 0.7 thou/uL (1.20-3.40); #Monocytes 0.8 thou/uL (0.11-0.59); #Neutrophils 10.8 thou/uL (1.40-6.50); %Basophils 0.1 % (0.0-1.0); %Eosinophils 0.5 % (0.0-10.0); %Lymphocytes 5.6 % (21.0-51.0); %Monocytes 6.2 % (0.0-10.0); %Neutrophils 87.6 % (42.0-75.0); Hemoglobin 10.2 g/dL (12.0-16.0); Mean Corpuscular HGB CONC 31.6 g/dL (32.0-36.0); Mean Corpuscular Hemoglobin 27.8 pg (27.0-31.0); Mean Corpuscular Volume 88.1 fL (78.0-98.0); Mean Platelet Volume 8.7 fL (7.4-10.4); Platelet Count 199 thou/uL (130-400); RBC Distribution Width 20.7 % (11.5-14.5); Red Blood Cell (RBC) Count 3.65 mill/uL (4.20-5.40); White Blood Cell (WBC) Count 12.3 thou/uL (4.8-10.8)
[2022-03-18] MEDS: Furosemide 40 MG/4 ML VIAL SLOW IVP SCH (15:04)
[2022-03-18] MEDS: VANCOMYCIN 1.25 GM/250 ML BAG 1.25 GM in Premix Bag 1 BAG IVPB SCH (15:56)
[2022-03-18 16:57] LABS: Magnesium 1.6 mg/dL (1.6-2.6)
[2022-03-18] MEDS ORDERED: Magnesium 2 GM/50 ML(in water) 2 GM in Premix Bag 1 BAG IVPB SCH (19:15)
[2022-03-18] MEDS: Insulin Glargine 30 UNITS/0.3 ML VIAL SC SCH (20:39)
[2022-03-19] MEDS: Ipratropium Oral Inhaler INH SCH (03:20)
[2022-03-19] MEDS: Furosemide 40 MG/4 ML VIAL SLOW IVP SCH ×2 (05:05→13:21)
[2022-03-19] MEDS: HumaLOG 300 UNITS/3 ML VIAL SC PRN (05:09)
[2022-03-19] MEDS: Morphine 2 MG/ML VIAL SLOW IVP PRN ×5 (05:24→21:31)
[2022-03-19 06:25] LABS: #Lymphocytes 0.8 thou/uL (1.20-3.40); #Monocytes 0.9 thou/uL (0.11-0.59); #Neutrophils 9.4 thou/uL (1.40-6.50); %Eosinophils 0.4 % (0.0-10.0); %Lymphocytes 7.5 % (21.0-51.0); %Monocytes 7.8 % (0.0-10.0); %Neutrophils 84.3 % (42.0-75.0); Hemoglobin 9.8 g/dL (12.0-16.0); Mean Corpuscular HGB CONC 30.3 g/dL (32.0-36.0); Mean Corpuscular Volume 89.1 fL (78.0-98.0); Mean Platelet Volume 9.3 fL (7.4-10.4); Platelet Count 259 thou/uL (130-400); RBC Distribution Width 21.3 % (11.5-14.5); Red Blood Cell (RBC) Count 3.63 mill/uL (4.20-5.40); White Blood Cell (WBC) Count 11.1 thou/uL (4.8-10.8)
[2022-03-19 06:30] LABS: ALT (SGPT) 17 U/L (8-55); AST (SGOT) 17 U/L (5-34); Albumin 2.5 g/dL (3.4-4.8); Alkaline Phosphatase 85 U/L (40-110); Anion Gap 11 mmol/L (10-20); BUN (Urea Nitrogen) 28 mg/dL (9.8-20.1); Bilirubin, Total 2.5 mg/dL (0.2-1.2); Calc. Creatinine Clearance 93 mL/min (70-130); Calcium 8.3 mg/dL (7.8-10.44); Carbon Dioxide 28 mmol/L (23-31); Chloride 101 mmol/L (98-107); Glucose 159 mg/dL (80-115); Magnesium 1.9 mg/dL (1.6-2.6); Potassium 3.9 mmol/L (3.5-5.1); Protein, Total 6.5 g/dL (5.8-8.1); Sodium 136 mmol/L (136-145)
[2022-03-19] MEDS: NIRMATRELVIR 150 MG/RITONAVIR 100 MG TABLET PO SCH ×2 (08:41→23:24)
[2022-03-19] MEDS: Pantoprazole 40 MG VIAL IVP SCH (08:41)
[2022-03-19] MEDS: acetaZOLAMIDE Sodium 500 mg Vial IVP SCH (08:42)
[2022-03-19] MEDS: Cholecalciferol 1,000 UNITS (25 MCG) TAB PO SCH (08:42)
[2022-03-19] MEDS: metroNIDAZOLE 500 MG TAB PO SCH ×2 (08:42→21:30)
[2022-03-19] MEDS: Ascorbic Acid 500 mg Chewable Tablet PO SCH (08:42)
[2022-03-19] MEDS: guaiFENesin ER 600 MG TAB PO SCH ×2 (08:42→21:30)
[2022-03-19] MEDS: Zinc Sulfate 220 MG CAP PO SCH (08:42)
[2022-03-19] MEDS ORDERED: Magnesium 2 GM/50 ML(in water) 2 GM in Premix Bag 1 BAG IVPB SCH (09:00)
[2022-03-19] MEDS: VANCOMYCIN 1.25 GM/250 ML BAG 1.25 GM in Premix Bag 1 BAG IVPB SCH (17:08)
[2022-03-19] MEDS: Carvedilol 6.25 MG TAB PO SCH (17:08)
[2022-03-19] MEDS: Insulin Glargine 30 UNITS/0.3 ML VIAL SC SCH (21:54)
[2022-03-20] MEDS: Ipratropium Oral Inhaler INH SCH ×5 (00:10→18:24)
[2022-03-20] MEDS: NIRMATRELVIR 150 MG/RITONAVIR 100 MG TABLET PO SCH ×2 (00:46→05:51)
[2022-03-20] MEDS: Furosemide 40 MG/4 ML VIAL SLOW IVP SCH ×2 (05:49→13:09)
[2022-03-20] MEDS: Morphine 2 MG/ML VIAL SLOW IVP PRN ×4 (06:08→21:44)
[2022-03-20 06:38] LABS: #Eosinphils 0.2 thou/uL (0.0-0.7); #Lymphocytes 0.7 thou/uL (1.20-3.40); #Monocytes 0.7 thou/uL (0.11-0.59); %Eosinophils 1.7 % (0.0-10.0); %Lymphocytes 6.8 % (21.0-51.0); %Monocytes 6.7 % (0.0-10.0); %Neutrophils 84.8 % (42.0-75.0); Hemoglobin 10.2 g/dL (12.0-16.0); Mean Corpuscular Hemoglobin 27.8 pg (27.0-31.0); Mean Corpuscular Volume 89.8 fL (78.0-98.0); Mean Platelet Volume 9.1 fL (7.4-10.4); Platelet Count 271 thou/uL (130-400); RBC Distribution Width 21.3 % (11.5-14.5); Red Blood Cell (RBC) Count 3.68 mill/uL (4.20-5.40); White Blood Cell (WBC) Count 10.6 thou/uL (4.8-10.8)
[2022-03-20 07:05] LABS: ALT (SGPT) 14 U/L (8-55); AST (SGOT) 13 U/L (5-34); Albumin 2.4 g/dL (3.4-4.8); Alkaline Phosphatase 84 U/L (40-110); Anion Gap 12 mmol/L (10-20); BUN (Urea Nitrogen) 31 mg/dL (9.8-20.1); Bilirubin, Total 1.9 mg/dL (0.2-1.2); Calc. Creatinine Clearance 88 mL/min (70-130); Calcium 8.3 mg/dL (7.8-10.44); Carbon Dioxide 28 mmol/L (23-31); Chloride 102 mmol/L (98-107); Globulin 4.2 g/dL (2.4-3.5); Glucose 104 mg/dL (80-115); Potassium 3.7 mmol/L (3.5-5.1); Protein, Total 6.6 g/dL (5.8-8.1); Sodium 138 mmol/L (136-145)
[2022-03-20] MEDS ORDERED: Magnesium 2 GM/50 ML(in water) 2 GM in Premix Bag 1 BAG IVPB SCH (08:00)
[2022-03-20] MEDS: metroNIDAZOLE 500 MG TAB PO SCH ×2 (08:56→21:19)
[2022-03-20] MEDS: acetaZOLAMIDE Sodium 500 mg Vial IVP SCH (08:56)
[2022-03-20] MEDS: Carvedilol 6.25 MG TAB PO SCH ×2 (08:56→16:57)
[2022-03-20] MEDS: Zinc Sulfate 220 MG CAP PO SCH (08:56)
[2022-03-20] MEDS: Cholecalciferol 1,000 UNITS (25 MCG) TAB PO SCH (08:56)
[2022-03-20] MEDS: Ascorbic Acid 500 mg Chewable Tablet PO SCH (08:56)
[2022-03-20] MEDS: Pantoprazole 40 MG VIAL IVP SCH (08:56)
[2022-03-20] MEDS: guaiFENesin ER 600 MG TAB PO SCH ×2 (08:58→21:19)
[2022-03-20 16:45] LABS: Vancomycin, Trough 23.7 ug/mL
[2022-03-20] MEDS: VANCOMYCIN 1.25 GM/250 ML BAG 1.25 GM in Premix Bag 1 BAG IVPB SCH (16:57)
[2022-03-20] MEDS ORDERED: NIRMATRELVIR 150 MG/RITONAVIR 100 MG TABLET PO SCH (21:00)
[2022-03-20] MEDS: Insulin Glargine 30 UNITS/0.3 ML VIAL SC SCH (21:43)
[2022-03-21 05:58] LABS: ALT (SGPT) 12 U/L (8-55); AST (SGOT) 13 U/L (5-34); Albumin 2.2 g/dL (3.4-4.8); Alkaline Phosphatase 75 U/L (40-110); Anion Gap 10 mmol/L (10-20); BUN (Urea Nitrogen) 29 mg/dL (9.8-20.1); Bilirubin, Total 1.6 mg/dL (0.2-1.2); Calc. Creatinine Clearance 89 mL/min (70-130); Calcium 8.2 mg/dL (7.8-10.44); Carbon Dioxide 29 mmol/L (23-31); Chloride 103 mmol/L (98-107); Glucose 124 mg/dL (80-115); Magnesium 2.1 mg/dL (1.6-2.6); Potassium 3.3 mmol/L (3.5-5.1); Protein, Total 6.2 g/dL (5.8-8.1); Sodium 139 mmol/L (136-145)
[2022-03-21] MEDS: Furosemide 40 MG/4 ML VIAL SLOW IVP SCH (06:01)
[2022-03-21] MEDS: HumaLOG 300 UNITS/3 ML VIAL SC PRN (06:01)
[2022-03-21] MEDS ORDERED: Potassium Chloride 20 MEQ TAB PO SCH ×2 (07:45→08:00)
[2022-03-21] MEDS: Pantoprazole 40 MG VIAL IVP SCH (08:46)
[2022-03-21] MEDS: acetaZOLAMIDE Sodium 500 mg Vial IVP SCH (08:46)
[2022-03-21] MEDS: guaiFENesin ER 600 MG TAB PO SCH (08:47)
[2022-03-21] MEDS: Cholecalciferol 1,000 UNITS (25 MCG) TAB PO SCH (08:47)
[2022-03-21] MEDS: Ascorbic Acid 500 mg Chewable Tablet PO SCH (08:47)
[2022-03-21] MEDS: Morphine 2 MG/ML VIAL SLOW IVP PRN (08:47)
[2022-03-21] MEDS: Zinc Sulfate 220 MG CAP PO SCH (08:47)
[2022-03-21] MEDS: metroNIDAZOLE 500 MG TAB PO SCH (08:47)
[2022-03-21] MEDS: Carvedilol 6.25 MG TAB PO SCH (08:47)
[2022-03-21] MEDS: Ipratropium Oral Inhaler INH SCH ×2 (08:48→11:54)
[2022-03-21 09:32] VITALS: BMI 36.6
[2022-03-21 11:53] VITALS: BP 120/66; TEMP 97.8
[2022-03-21] MEDS ORDERED: Vancomycin 1 GM in Premix Bag 1 BAG IVPB SCH (17:00)
== END 2022-03-21 14:11 | DRG 616 ==
LOC: ERS 20:14 → T4-A 22:47 → IMCU/EMU 03-12 16:12 → CCU 03-12 19:26 → IMCU/EMU 03-16 18:44 → T4-B 03-18 15:23
PROVIDERS: ADMIT Internal Medicine; ATTEND Internal Medicine
PROC: 0Y6P0Z0 Detachment at Right 1st Toe, Complete, Open Approach (ICD-10-PCS; principal; 2022-03-07)
PROC: 02HV33Z Insertion of Infusion Device into Superior Vena Cava, Percutaneous Approach (ICD-10-PCS; 2022-03-12)
PROC: B548ZZA Ultrasonography of Superior Vena Cava, Guidance (ICD-10-PCS; 2022-03-12)
PROC: 30233L1 Transfusion of Nonautologous Fresh Plasma into Peripheral Vein, Percutaneous Approach (ICD-10-PCS; 2022-03-12)
PROC: 30233N1 Transfusion of Nonautologous Red Blood Cells into Peripheral Vein, Percutaneous Approach (ICD-10-PCS; 2022-03-12)
PROC: 30233R1 Transfusion of Nonautologous Platelets into Peripheral Vein, Percutaneous Approach (ICD-10-PCS; 2022-03-12)
PROC: 8E0ZXY6 Isolation (ICD-10-PCS; 2022-03-14)
DX: E11.69 Type 2 diabetes mellitus with other specified complication (principal); I50.43 Acute on chronic combined systolic (congestive) and diastolic (congestive) heart failure; U07.1 COVID-19; K66.1 Hemoperitoneum; R57.8 Other shock; J96.01 Acute respiratory failure with hypoxia; E11.52 Type 2 diabetes mellitus with diabetic peripheral angiopathy with gangrene; D62 Acute posthemorrhagic anemia; D68.51 Activated protein C resistance; M86.171 Other acute osteomyelitis, right ankle and foot; Z20.822 Contact with and (suspected) exposure to COVID-19; F41.9 Anxiety disorder, unspecified; F32.A Depression, unspecified; I11.0 Hypertensive heart disease with heart failure; E11.621 Type 2 diabetes mellitus with foot ulcer; L97.519 Non-pressure chronic ulcer of other part of right foot with unspecified severity; E66.01 Morbid (severe) obesity due to excess calories; I25.5 Ischemic cardiomyopathy; I25.10 Atherosclerotic heart disease of native coronary artery without angina pectoris; Z96.643 Presence of artificial hip joint, bilateral; Z28.311 Partially vaccinated for COVID-19; Z88.6 Allergy status to analgesic agent; Z91.018 Allergy to other foods; Z79.4 Long term (current) use of insulin; Z79.01 Long term (current) use of anticoagulants; Z79.899 Other long term (current) drug therapy; Z79.02 Long term (current) use of antithrombotics/antiplatelets; Z86.718 Personal history of other venous thrombosis and embolism; Z91.14 Patient's other noncompliance with medication regimen; Z79.84 Long term (current) use of oral hypoglycemic drugs; Z68.36 Body mass index [BMI] 36.0-36.9, adult; E87.6 Hypokalemia; E83.42 Hypomagnesemia; I95.9 Hypotension, unspecified; T45.515A Adverse effect of anticoagulants, initial encounter
CPT/HCPCS: 36415; 36416; 36430; 36569; 71045; 74018; 74176; 80048; 80053; 80202; 82330; 83605; 83735; 83880; 84443; 84484; 85025; 85610; 85652; 85730; 86140; 86850; 86900; 86901; 87040; 87070; 87076; 87077; 87186; 87205; 88305; 88311; 93005; 93010; 93923; 94640; 94760; 96365; 96367; C1751; C9113; J0583; J0692; J1120; J1644; J1650; J1815; J1940; J2175; J2250; J2270; J2704; J2795; J3010; J3370; J3430; J3475; J3480; J3490; J7050; J7168; J7510; P9016; P9035; P9059; U0003; U0005

== ENCOUNTER 2022-05-30 10:52 | Outpatient (CLI) | payer MEDICARE, BC | END 2022-05-30 10:53 | disposition home or self-care (01) | LOC: ULT 10:52 | PROVIDERS: ATTEND Internal Medicine | DX: R60.0 Localized edema (principal); I82.4Y1 Acute embolism and thrombosis of unspecified deep veins of right proximal lower extremity; I82.413 Acute embolism and thrombosis of femoral vein, bilateral; I82.432 Acute embolism and thrombosis of left popliteal vein; I82.813 Embolism and thrombosis of superficial veins of lower extremities, bilateral; I82.433 Acute embolism and thrombosis of popliteal vein, bilateral; I82.443 Acute embolism and thrombosis of tibial vein, bilateral; Z79.01 Long term (current) use of anticoagulants; Z95.828 Presence of other vascular implants and grafts | CPT/HCPCS: 74176; 93970 ==

== ENCOUNTER 2022-07-10 16:05 | Inpatient (IN) | payer MEDICARE, BC ==
[2022-07-10 17:54] LABS: #Lymphocytes 0.7 thou/uL (1.20-3.40); #Monocytes 0.4 thou/uL (0.11-0.59); #Neutrophils 3.6 thou/uL (1.40-6.50); %Basophils 0.5 % (0.0-1.0); %Eosinophils 0.8 % (0.0-10.0); %Lymphocytes 15.1 % (21.0-51.0); %Monocytes 8.3 % (0.0-10.0); %Neutrophils 75.3 % (42.0-75.0); Hemoglobin 14.5 g/dL (12.0-16.0); Mean Corpuscular HGB CONC 30.5 g/dL (32.0-36.0); Mean Corpuscular Hemoglobin 30.1 pg (27.0-31.0); Mean Corpuscular Volume 98.7 fL (78.0-98.0); Platelet Count 155 thou/uL (130-400); RBC Distribution Width 14.2 % (11.5-14.5); Red Blood Cell (RBC) Count 4.81 mill/uL (4.20-5.40); White Blood Cell (WBC) Count 4.8 thou/uL (4.8-10.8)
[2022-07-10 18:19] LABS: ALT (SGPT) 34 U/L (8-55); AST (SGOT) 38 U/L (5-34); Albumin 3.6 g/dL (3.4-4.8); Alkaline Phosphatase 150 U/L (40-110); Anion Gap 16 mmol/L (10-20); BUN (Urea Nitrogen) 39 mg/dL (9.8-20.1); Calc. Creatinine Clearance 0 mL/min (70-130); Calcium 9.3 mg/dL (7.8-10.44); Carbon Dioxide 26 mmol/L (23-31); Chloride 101 mmol/L (98-107); Estimated GFR 41; Globulin 3.9 g/dL (2.4-3.5); Glucose 239 mg/dL (80-115); Potassium 4.3 mmol/L (3.5-5.1); Protein, Total 7.5 g/dL (5.8-8.1); Sodium 139 mmol/L (136-145)
[2022-07-10 19:45] LABS: CRP (Inflammatory) 1.02 mg/dL (= or < 0.5); Lipase 28 U/L (8-78); Magnesium 1.8 mg/dL (1.6-2.6)
[2022-07-10] MEDS ORDERED: Furosemide 100 MG/10 ML VIAL ONE (20:38)
[2022-07-10 21:25] LABS: Bilirubin Negative (Negative); Blood, Urine Negative (Negative); Clarity Turbid (Clear); Glucose, Urine (Dipstick) Normal (Negative); Ketone, Urine Negative (Negative); Leukocyte 75 Leu/uL (Negative); Nitrite Negative (Negative); Protein, Urine (Dipstick) 50 mg/dL (Neg-Trace); RBC/HPF 0-3 HPF (0-3); Specific Gravity, Urine 1.016 (1.002-1.036); Urobilinogen Normal mg/dL (Less than 2); WBC/HPF 0-3 HPF (0-3)
[2022-07-10 21:26] LABS: Bacteria/HPF 1+ HPF (None Seen)
[2022-07-10] MEDS ORDERED: Dextrose 5% in Water 1,000 ML IV PRN (22:38)
[2022-07-10] MEDS ORDERED: Acetaminophen 325 MG TAB PO PRN (22:38)
[2022-07-10] MEDS ORDERED: HumaLOG 300 UNITS/3 ML VIAL SC PRN ×2 (22:38)
[2022-07-10] MEDS ORDERED: Dextrose 50% Abboject 50 ML SYRINGE SLOW IVP PRN (22:38)
[2022-07-10] MEDS ORDERED: Acetaminophen 650 MG Suppository PR PRN (22:38)
[2022-07-10] MEDS ORDERED: Ondansetron PF 4 MG/2 ML Vial IVP PRN (22:38)
[2022-07-10] MEDS ORDERED: Ondansetron ODT 4 MG TAB PO PRN (22:38)
[2022-07-10] MEDS ORDERED: Electrolyte Replacement Protocol 1 EACH FS SCH (22:45)
[2022-07-10] MEDS ORDERED: Cephalexin 250 MG/5 ML Oral Suspension PO SCH (22:45)
[2022-07-10] MEDS ORDERED: Sacubitril 49 MG/Valsartan 51 MG TABLET PO SCH (23:00)
[2022-07-10] MEDS ORDERED: Carvedilol 6.25 MG TAB PO SCH (23:00)
[2022-07-11] MEDS ORDERED: Magnesium 2 GM/50 ML BAG (IN WATER) ONE ×2 (00:14→02:03)
[2022-07-11] MEDS: Magnesium 2 GM/50 ML(in water) 2 GM in Premix Bag 1 BAG IVPB SCH ×3 (00:23→02:05)
[2022-07-11 01:30] LABS: INR-International Normal Ratio 1.2; Prothrombin Time 15.7 sec (12.0-14.7)
[2022-07-11 05:08] LABS: #Eosinphils 0.1 thou/uL (0.0-0.7); #Lymphocytes 0.7 thou/uL (1.20-3.40); #Monocytes 0.3 thou/uL (0.11-0.59); #Neutrophils 2.7 thou/uL (1.40-6.50); %Basophils 1.2 % (0.0-1.0); %Eosinophils 1.8 % (0.0-10.0); %Monocytes 8.5 % (0.0-10.0); %Neutrophils 70.7 % (42.0-75.0); Hemoglobin 13.4 g/dL (12.0-16.0); Mean Corpuscular HGB CONC 30.2 g/dL (32.0-36.0); Mean Corpuscular Hemoglobin 29.3 pg (27.0-31.0); Mean Corpuscular Volume 96.9 fL (78.0-98.0); Mean Platelet Volume 9.9 fL (7.4-10.4); Platelet Count 128 thou/uL (130-400); RBC Distribution Width 14.2 % (11.5-14.5); Red Blood Cell (RBC) Count 4.56 mill/uL (4.20-5.40); White Blood Cell (WBC) Count 3.8 thou/uL (4.8-10.8)
[2022-07-11 05:20] LABS: Anion Gap 12 mmol/L (10-20); BUN (Urea Nitrogen) 39 mg/dL (9.8-20.1); Calc. Creatinine Clearance 0 mL/min (70-130); Calcium 9.1 mg/dL (7.8-10.44); Carbon Dioxide 27 mmol/L (23-31); Chloride 102 mmol/L (98-107); Estimated GFR 45; Glucose 270 mg/dL (80-115); Potassium 3.8 mmol/L (3.5-5.1); Sodium 137 mmol/L (136-145)
[2022-07-11] MEDS: Furosemide 100 MG/10 ML VIAL SLOW IVP SCH ×2 (06:44→14:30)
[2022-07-11] MEDS ORDERED: Furosemide 100 MG/10 ML VIAL ONE (06:50)
[2022-07-11 07:45] LABS: Glucose 252 mg/dL (80-115)
[2022-07-11] MEDS ORDERED: Cephalexin 250 MG CAP ONE ×3 (08:34→08:38)
[2022-07-11] MEDS: Carvedilol 6.25 MG TAB PO SCH ×2 (08:45→19:19)
[2022-07-11] MEDS: Cephalexin 250 MG/5 ML Oral Suspension PO SCH ×2 (08:45→21:12)
[2022-07-11] MEDS: Empagliflozin 10 MG TAB PO SCH (08:45)
[2022-07-11] MEDS: Sacubitril 49 MG/Valsartan 51 MG TABLET PO SCH ×2 (08:46→20:19)
[2022-07-11 10:20] LABS: SARS-CoV-2 NAA Rapid Test Not Detected (NotDetected)
[2022-07-11] MEDS ORDERED: HumaLOG 300 UNITS/3 ML VIAL ONE (11:28)
[2022-07-11] MEDS ORDERED: Dextrose 50% Abboject 50 ML SYRINGE SLOW IVP PRN (11:34)
[2022-07-11] MEDS ORDERED: Dextrose 5% in Water 1,000 ML IV PRN (11:34)
[2022-07-11 12:24] LABS: Glucose 265 mg/dL (80-115)
[2022-07-11] MEDS ORDERED: Furosemide 40 MG/4 ML VIAL ONE (14:17)
[2022-07-11 17:55] VITALS: BMI 33.5
[2022-07-11 18:56] LABS: Glucose 244 mg/dL (80-115)
[2022-07-11] MEDS: Atorvastatin Calcium 40 MG TAB PO SCH (20:22)
[2022-07-12] MEDS ORDERED: Electrolyte Replacement Protocol 1 EACH FS SCH (03:15)
[2022-07-12 05:05] LABS: #Eosinphils 0.1 thou/uL (0.0-0.7); #Lymphocytes 0.6 thou/uL (1.20-3.40); #Monocytes 0.4 thou/uL (0.11-0.59); #Neutrophils 2.7 thou/uL (1.40-6.50); %Basophils 0.4 % (0.0-1.0); %Eosinophils 2.8 % (0.0-10.0); %Lymphocytes 15.5 % (21.0-51.0); %Monocytes 9.2 % (0.0-10.0); %Neutrophils 72.1 % (42.0-75.0); Hemoglobin 13.5 g/dL (12.0-16.0); Mean Corpuscular HGB CONC 31.2 g/dL (32.0-36.0); Mean Corpuscular Hemoglobin 30.2 pg (27.0-31.0); Platelet Count 127 thou/uL (130-400); RBC Distribution Width 14.1 % (11.5-14.5); Red Blood Cell (RBC) Count 4.46 mill/uL (4.20-5.40); White Blood Cell (WBC) Count 3.8 thou/uL (4.8-10.8)
[2022-07-12 05:09] LABS: Anion Gap 12 mmol/L (10-20); BUN (Urea Nitrogen) 38 mg/dL (9.8-20.1); Calc. Creatinine Clearance 61 mL/min (70-130); Carbon Dioxide 30 mmol/L (23-31); Chloride 101 mmol/L (98-107); Estimated GFR 43; Glucose 202 mg/dL (80-115); Potassium 3.6 mmol/L (3.5-5.1); Sodium 139 mmol/L (136-145)
[2022-07-12] MEDS: Furosemide 100 MG/10 ML VIAL SLOW IVP SCH ×2 (06:08→13:10)
[2022-07-12] MEDS ORDERED: Magnesium 2 GM/50 ML(in water) 2 GM in Premix Bag 1 BAG IVPB SCH (08:00)
[2022-07-12] MEDS: Carvedilol 6.25 MG TAB PO SCH ×2 (08:58→16:45)
[2022-07-12] MEDS: Cephalexin 250 MG CAP PO SCH ×2 (09:00→20:56)
[2022-07-12] MEDS ORDERED: FLU VACC QS2022-23(65YR UP)/PF 240 MCG/0.7 ML SYRINGE IM ONE (09:00)
[2022-07-12] MEDS: Empagliflozin 10 MG TAB PO SCH (09:00)
[2022-07-12] MEDS: Sacubitril 49 MG/Valsartan 51 MG TABLET PO SCH ×2 (09:02→20:56)
[2022-07-12] MEDS ORDERED: Spironolactone 25 MG TAB PO SCH (14:15)
[2022-07-12] MEDS: Atorvastatin Calcium 40 MG TAB PO SCH (20:56)
[2022-07-12] MEDS: Insulin Glargine 30 UNITS/0.3 ML VIAL SC SCH (20:57)
[2022-07-12] MEDS: Potassium Chloride 20 MEQ TAB PO SCH (20:57)
[2022-07-12] MEDS ORDERED: Non-Formulary Item 1 EACH (Insulin Detemir [Levemir] 100 UNIT/ML Vial) SQ SCH (21:00)
[2022-07-12] MEDS ORDERED: Non-Formulary Item 1 EACH (Potassium Chloride [Potassium Chloride] 20 MEQ Tablet.Er) PO SCH (21:00)
[2022-07-13 05:01] LABS: #Eosinphils 0.1 thou/uL (0.0-0.7); #Lymphocytes 0.8 thou/uL (1.20-3.40); #Monocytes 0.4 thou/uL (0.11-0.59); %Basophils 0.1 % (0.0-1.0); %Eosinophils 2.3 % (0.0-10.0); %Monocytes 10.2 % (0.0-10.0); %Neutrophils 69.5 % (42.0-75.0); Hemoglobin 13.8 g/dL (12.0-16.0); Mean Corpuscular HGB CONC 30.9 g/dL (32.0-36.0); Mean Corpuscular Hemoglobin 29.9 pg (27.0-31.0); Mean Corpuscular Volume 96.8 fL (78.0-98.0); Mean Platelet Volume 10.1 fL (7.4-10.4); Platelet Count 141 thou/uL (130-400); RBC Distribution Width 14.1 % (11.5-14.5); Red Blood Cell (RBC) Count 4.61 mill/uL (4.20-5.40); White Blood Cell (WBC) Count 4.3 thou/uL (4.8-10.8)
[2022-07-13 05:11] LABS: Anion Gap 11 mmol/L (10-20); BUN (Urea Nitrogen) 36 mg/dL (9.8-20.1); Calc. Creatinine Clearance 64 mL/min (70-130); Calcium 8.9 mg/dL (7.8-10.44); Carbon Dioxide 32 mmol/L (23-31); Chloride 98 mmol/L (98-107); Estimated GFR 46; Glucose 224 mg/dL (80-115); Sodium 137 mmol/L (136-145)
[2022-07-13] MEDS: Furosemide 100 MG/10 ML VIAL SLOW IVP SCH ×2 (06:02→14:58)
[2022-07-13] MEDS ORDERED: Non-Formulary Item 1 EACH (Ubidecarenone [Co Q-10] 200 MG Capsule) PO SCH (09:00)
[2022-07-13] MEDS: Potassium Chloride 20 MEQ TAB PO SCH ×2 (10:06→20:50)
[2022-07-13] MEDS: Sacubitril 49 MG/Valsartan 51 MG TABLET PO SCH ×2 (10:06→20:50)
[2022-07-13] MEDS: Magnesium Oxide 400 MG TAB PO SCH (10:06)
[2022-07-13] MEDS: Cephalexin 250 MG CAP PO SCH ×2 (10:07→20:50)
[2022-07-13] MEDS: Fondaparinux Sodium 2.5 MG/0.5 ML SYRINGE SC SCH (10:12)
[2022-07-13] MEDS: Spironolactone 25 MG TAB PO SCH (10:14)
[2022-07-13] MEDS: Empagliflozin 10 MG TAB PO SCH (11:24)
[2022-07-13] MEDS: Carvedilol 6.25 MG TAB PO SCH ×2 (11:24→17:08)
[2022-07-13] MEDS: Insulin Glargine 30 UNITS/0.3 ML VIAL SC SCH (20:51)
[2022-07-14 05:16] LABS: #Eosinphils 0.1 thou/uL (0.0-0.7); #Lymphocytes 0.8 thou/uL (1.20-3.40); #Monocytes 0.4 thou/uL (0.11-0.59); #Neutrophils 2.8 thou/uL (1.40-6.50); %Eosinophils 2.5 % (0.0-10.0); %Lymphocytes 19.9 % (21.0-51.0); %Monocytes 10.3 % (0.0-10.0); %Neutrophils 67.2 % (42.0-75.0); Hemoglobin 14.1 g/dL (12.0-16.0); Mean Corpuscular HGB CONC 31.1 g/dL (32.0-36.0); Mean Corpuscular Hemoglobin 30.1 pg (27.0-31.0); Mean Corpuscular Volume 96.9 fL (78.0-98.0); Mean Platelet Volume 9.9 fL (7.4-10.4); Platelet Count 153 thou/uL (130-400); RBC Distribution Width 14.1 % (11.5-14.5); Red Blood Cell (RBC) Count 4.67 mill/uL (4.20-5.40); White Blood Cell (WBC) Count 4.2 thou/uL (4.8-10.8)
[2022-07-14 06:11] LABS: Anion Gap 12 mmol/L (10-20); BUN (Urea Nitrogen) 38 mg/dL (9.8-20.1); Calc. Creatinine Clearance 53 mL/min (70-130); Calcium 9.2 mg/dL (7.8-10.44); Carbon Dioxide 34 mmol/L (23-31); Chloride 96 mmol/L (98-107); Estimated GFR 38; Glucose 214 mg/dL (80-115); Potassium 4.1 mmol/L (3.5-5.1); Sodium 138 mmol/L (136-145)
[2022-07-14] MEDS: Furosemide 100 MG/10 ML VIAL SLOW IVP SCH (06:22)
[2022-07-14] MEDS: Carvedilol 6.25 MG TAB PO SCH ×2 (09:33→18:17)
[2022-07-14] MEDS: Spironolactone 25 MG TAB PO SCH (09:34)
[2022-07-14] MEDS: Cephalexin 250 MG CAP PO SCH ×2 (09:35→20:00)
[2022-07-14] MEDS: Furosemide 40 MG TAB PO SCH ×2 (09:36→15:15)
[2022-07-14] MEDS: Empagliflozin 10 MG TAB PO SCH (09:36)
[2022-07-14] MEDS: Magnesium Oxide 400 MG TAB PO SCH (09:37)
[2022-07-14] MEDS: Potassium Chloride 20 MEQ TAB PO SCH (09:37)
[2022-07-14] MEDS: Sacubitril 49 MG/Valsartan 51 MG TABLET PO SCH ×2 (09:38→20:00)
[2022-07-14] MEDS: Fondaparinux Sodium 2.5 MG/0.5 ML SYRINGE SC SCH (09:42)
[2022-07-14] MEDS: Insulin Glargine 30 UNITS/0.3 ML VIAL SC SCH (20:00)
[2022-07-15 05:02] LABS: #Eosinphils 0.1 thou/uL (0.0-0.7); #Lymphocytes 0.8 thou/uL (1.20-3.40); #Monocytes 0.5 thou/uL (0.11-0.59); #Neutrophils 2.8 thou/uL (1.40-6.50); %Basophils 0.4 % (0.0-1.0); %Eosinophils 2.4 % (0.0-10.0); %Lymphocytes 19.4 % (21.0-51.0); %Monocytes 10.8 % (0.0-10.0); Hemoglobin 13.4 g/dL (12.0-16.0); Mean Corpuscular HGB CONC 30.5 g/dL (32.0-36.0); Mean Corpuscular Hemoglobin 29.6 pg (27.0-31.0); Mean Corpuscular Volume 97.2 fL (78.0-98.0); Mean Platelet Volume 9.3 fL (7.4-10.4); Platelet Count 149 thou/uL (130-400); RBC Distribution Width 14.1 % (11.5-14.5); Red Blood Cell (RBC) Count 4.53 mill/uL (4.20-5.40); White Blood Cell (WBC) Count 4.1 thou/uL (4.8-10.8)
[2022-07-15 05:13] LABS: Anion Gap 13 mmol/L (10-20); BUN (Urea Nitrogen) 40 mg/dL (9.8-20.1); Calc. Creatinine Clearance 56 mL/min (70-130); Calcium 8.8 mg/dL (7.8-10.44); Carbon Dioxide 33 mmol/L (23-31); Chloride 97 mmol/L (98-107); Estimated GFR 42; Glucose 194 mg/dL (80-115); Sodium 139 mmol/L (136-145)
[2022-07-15 05:14] LABS: Magnesium 1.8 mg/dL (1.6-2.6)
[2022-07-15] MEDS ORDERED: Magnesium 2 GM/50 ML(in water) 2 GM in Premix Bag 1 BAG IVPB SCH (08:00)
[2022-07-15] MEDS: Cephalexin 250 MG CAP PO SCH (10:09)
[2022-07-15] MEDS: Sacubitril 49 MG/Valsartan 51 MG TABLET PO SCH (10:09)
[2022-07-15] MEDS: Spironolactone 25 MG TAB PO SCH (10:10)
[2022-07-15] MEDS: Furosemide 40 MG TAB PO SCH ×2 (10:10→15:07)
[2022-07-15] MEDS: Potassium Chloride 20 MEQ TAB PO SCH (10:10)
[2022-07-15] MEDS: Fondaparinux Sodium 2.5 MG/0.5 ML SYRINGE SC SCH (10:10)
[2022-07-15] MEDS: Empagliflozin 10 MG TAB PO SCH (10:10)
[2022-07-15] MEDS: Magnesium Oxide 400 MG TAB PO SCH (10:10)
[2022-07-15] MEDS: Carvedilol 6.25 MG TAB PO SCH ×2 (10:11→17:16)
[2022-07-15] MEDS ORDERED: Diclofenac 1% 100 GM GEL TP PRN (13:33)
[2022-07-15 16:04] VITALS: BP 120/77; TEMP 98
== END 2022-07-15 19:30 | disposition home health service (06) | DRG 291 ==
LOC: ERS 16:05 → ERHOLD 21:52 → 2SW 07-11 17:13 → OBSVTOIN 07-12 11:53
PROVIDERS: ADMIT Internal Medicine; ATTEND Internal Medicine
DX: I13.0 Hypertensive heart and chronic kidney disease with heart failure and stage 1 through stage 4 chronic kidney disease, or unspecified chronic kidney disease (principal); I50.23 Acute on chronic systolic (congestive) heart failure; D68.51 Activated protein C resistance; I47.20 Ventricular tachycardia, unspecified; E11.51 Type 2 diabetes mellitus with diabetic peripheral angiopathy without gangrene; M19.90 Unspecified osteoarthritis, unspecified site; E11.22 Type 2 diabetes mellitus with diabetic chronic kidney disease; I25.5 Ischemic cardiomyopathy; I25.10 Atherosclerotic heart disease of native coronary artery without angina pectoris; N18.9 Chronic kidney disease, unspecified; Z96.643 Presence of artificial hip joint, bilateral; Z91.014 Allergy to mammalian meats; Z88.6 Allergy status to analgesic agent; Z79.4 Long term (current) use of insulin; Z79.899 Other long term (current) drug therapy; Z98.890 Other specified postprocedural states; Z89.411 Acquired absence of right great toe; Z79.84 Long term (current) use of oral hypoglycemic drugs
CPT/HCPCS: 36415; 36416; 71045; 72170; 80048; 80053; 81003; 81015; 83605; 83690; 83735; 83880; 84484; 85025; 85610; 86140; 87040; 87086; 93005; 93306; 94760; 96374; 96375; 96376; 97139; G0378; J1652; J1815; J1940; J3475; U0002

== ENCOUNTER 2022-09-09 12:39 | Outpatient (CLI) | payer MEDICARE, BC | END 2022-09-09 12:40 | disposition home or self-care (01) | LOC: ULT 12:39 | PROVIDERS: ATTEND Internal Medicine | DX: I82.413 Acute embolism and thrombosis of femoral vein, bilateral (principal); R60.0 Localized edema | CPT/HCPCS: 93970 ==

== ENCOUNTER 2022-10-22 11:16 | Outpatient (CLI) | payer MEDICARE, BC | END 2022-10-22 11:17 | disposition home or self-care (01) | LOC: BICRAD 11:16 | PROVIDERS: ATTEND Family Medicine | DX: M86.9 Osteomyelitis, unspecified (principal) ==

== ENCOUNTER 2022-11-22 11:46 | Outpatient (CLI) | payer MEDICARE, BC | END 2022-11-22 11:47 | disposition home or self-care (01) | LOC: BICRAD 11:46 | PROVIDERS: ATTEND Family Medicine | DX: M86.9 Osteomyelitis, unspecified (principal); Z89.411 Acquired absence of right great toe; Z89.421 Acquired absence of other right toe(s) ==